=== PATIENT | male | born 1960 | race African-American/Black ===

== ENCOUNTER → 2019-11-09 11:32 | Outpatient (BNVA) | payer OTHER, SELFPAY | PROVIDERS: PCP Internal Medicine; Referring Provider Internal Medicine; Visit Provider Surgery | DX: Z76.89 Persons encountering health services in other specified circumstances (principal) ==

== ENCOUNTER → 2020-03-28 08:56 | Outpatient (BNVA) | payer OTHER, SELFPAY | PROVIDERS: PCP Internal Medicine; Visit Provider Hospitalist | DX: Z76.89 Persons encountering health services in other specified circumstances (principal) | CPT/HCPCS: Q3014 ==

== ENCOUNTER → 2020-04-11 08:01 | Outpatient (BNVA) | payer OTHER, SELFPAY | PROVIDERS: PCP Internal Medicine; Visit Provider Surgery | DX: Z01.818 Encounter for other preprocedural examination (principal); E66.01 Morbid (severe) obesity due to excess calories; R06.02 Shortness of breath; Z68.43 Body mass index [BMI] 50.0-59.9, adult; Z98.84 Bariatric surgery status | CPT/HCPCS: 99212 ==

== ENCOUNTER → 2020-09-30 09:20 | Outpatient (BNVA) | payer OTHER, SELFPAY | PROVIDERS: PCP Internal Medicine; Visit Provider Hospitalist | DX: G47.33 Obstructive sleep apnea (adult) (pediatric) (principal); J41.0 Simple chronic bronchitis; E66.9 Obesity, unspecified | CPT/HCPCS: 99212 ==

== ENCOUNTER → 2020-12-04 09:02 | Outpatient (BNVA) | payer OTHER, SELFPAY | PROVIDERS: PCP Internal Medicine; Visit Provider Hospitalist | DX: G47.33 Obstructive sleep apnea (adult) (pediatric) (principal); J41.0 Simple chronic bronchitis; E66.9 Obesity, unspecified; K21.9 Gastro-esophageal reflux disease without esophagitis | CPT/HCPCS: 99212 ==

== ENCOUNTER → 2021-06-13 08:34 | Outpatient (BNVA) | payer OTHER, SELFPAY | PROVIDERS: PCP Internal Medicine; Visit Provider Hospitalist | DX: G47.33 Obstructive sleep apnea (adult) (pediatric) (principal); J41.0 Simple chronic bronchitis; E66.9 Obesity, unspecified; K21.9 Gastro-esophageal reflux disease without esophagitis; Z68.43 Body mass index [BMI] 50.0-59.9, adult | CPT/HCPCS: 99212 ==

== ENCOUNTER → 2021-10-08 08:56 | Outpatient (REF) | payer OTHER, SELFPAY | LOC: HO.SL 08:56 | PROVIDERS: PCP Internal Medicine; Visit Provider Hospitalist | DX: G47.33 Obstructive sleep apnea (adult) (pediatric) (principal) | CPT/HCPCS: 95806 ==

== ENCOUNTER → 2021-10-22 10:22 | Outpatient (BNVA) | payer OTHER, SELFPAY | PROVIDERS: PCP Internal Medicine; Visit Provider Hospitalist | DX: G47.33 Obstructive sleep apnea (adult) (pediatric) (principal); J41.0 Simple chronic bronchitis; K21.9 Gastro-esophageal reflux disease without esophagitis; E66.9 Obesity, unspecified; Z68.43 Body mass index [BMI] 50.0-59.9, adult; Z79.899 Other long term (current) drug therapy | CPT/HCPCS: 99212 ==

== ENCOUNTER 2021-11-06 08:28 | Outpatient (REF) | payer OTHER, SELFPAY ==
--- NOTE | 2021-11-06 12:03 | PFT_ITS ---
FLOWS: FEV1 77% of predicted at 1.88 L. FVC 76% of predicted at 2.39 L. FEV1 to FVC ratio of 0.79. No bronchodilator response. LUNG VOLUMES: Total lung capacity 74% of predicted at 4.17 L. Residual volume 87% of predicted at 1.63 L. Slow vital capacity 57% of predicted at 2.54 L. Expiratory reserve volume 25% of predicted at 0.31 L. Diffusion capacity is normal. IMPRESSION: Moderate restrictive ventilatory defect with no bronchodilator response. Decreased expiratory reserve volume suggests extrathoracic restriction likely secondary to abdominal obesity. Yevgeniy Daugherty MD AP/MODL / [id number]
== END 2021-11-06 08:29 | disposition home or self-care (01) ==
LOC: HO.RESP 08:28
PROVIDERS: PCP Internal Medicine; Visit Provider Hospitalist
DX: J44.9 Chronic obstructive pulmonary disease, unspecified (principal)
CPT/HCPCS: 94060; 94727; 94729

== ENCOUNTER → 2022-02-17 10:06 | Outpatient (BNVA) | payer OTHER, SELFPAY | PROVIDERS: PCP Internal Medicine; Visit Provider Hospitalist | DX: Z01.811 Encounter for preprocedural respiratory examination (principal); J45.40 Moderate persistent asthma, uncomplicated; G47.33 Obstructive sleep apnea (adult) (pediatric); K21.9 Gastro-esophageal reflux disease without esophagitis | CPT/HCPCS: 99212 ==

== ENCOUNTER 2022-09-24 09:34 | Outpatient (AMB) | payer OTHER, SELFPAY ==
[2022-09-24 09:39] VITALS: PULSE 81; O2SAT 98; BMI 51.7
--- NOTE | 2022-09-24 09:39 | A.OFFVIS_ITS ---
Intake Vital Signs 09/24/22 09:39 Height 5 ft 8 in Weight 340 lb BMI 51.7 Pulse 81 Pulse Source Pulse Oximeter Pulse Oximetry (%) 98 Oxygen Delivery Method Room Air Intake Visit Reasons: Obstructive sleep apnea Collar Trimmer Required: No Allergies hydrocodone [From VICODIN] Allergy (Severe, Verified 09/24/22 09:41) ANGIOEDEMA metformin [METFORMIN] Allergy (Intermediate, Verified 09/24/22 09:41) ITCHING/HEADACHE, rash HPI HPI Comments History of Present Illness Details The patient is a 62-year-old gentleman known history of obstructive sleep apnea and obstructive airway disease. Still having issues shortness of breath. Moderate severity. He did have pulmonary function studies done recently at [facility] which we reviewed. It demonstrated that he does have a reversible obstruction consistent with significant asthma. The patient has significant small airways disease related to that. He also has restrictive lung disease related to his body habitus. He has issues with his knees in other arthritic he is and also morbid obesity and make it hard for him to exercise on a regular basis. He has been using CPAP. The CPAP therapy has been affecting beneficial. 02/17/2022 the patient is here for a pulmonary follow-up visit. The patient is doing extremely well. He is very happy about his new APAP. currently set 10- 13 with a ramp of 6. Sometimes he feels like the ramp is too low. I did increase it to 8. I also talked about a turned off. His AHI is down to 0.5 on the current settings. He does use it for about 8 hours a night. The therapy has been extremely affecting beneficial for him. He does use a fullface mask which is also very comfortable for him. The patient also has been able to lose about 40 lb. He is working closely with the dietitian in the weight management program at [facility]. The patient is hoping to undergo bariatric surgery in the coming weeks. Continues uses respiratory therapy. He has not had any exacerbations. And he is not using using short-acting beta agonist often. Typically less than twice a week. Otherwise the patient is doing very well from a respiratory status. current patient is doing well and may proceed with surgery and anesthesia at this time. 09/24/2022 the patient is here for a pulmonary follow-up visit. The patient is doing well. He did undergo bariatric surgery. He has already lost 50 lb. He has been careful with this weight loss. The patient has a hard time walking to this knee discomfort. Still he needs to continue exercising to maintain muscle tightness [place]. The patient has been using his CPAP. CPAP therapy continues to be affecting beneficial. He naps during the daytime and also sleeps at nighttime with it. His AHI is down to less than 1 which is reassuring. The machine is set up currently APAP 8-13. Will go ahead increase it slightly to 14 cm maximum. His respiratory therapy continues to be well. Currently on the Breztri inhaler twice a day. This has been affecting beneficial. He also uses albuterol but typically less than 2 times a week. No imaging studies to review. At this point the patient is doing well so therefore follow-up some point next year. [facility] Medical History (Updated 02/17/22 @ 20:11 by Chema Milton MD) Anxiety Arthritis Asthma COPD (chronic obstructive pulmonary disease) Depression GERD (gastroesophageal reflux disease) Glaucoma Gout Graves disease Hypothyroidism, postablative Obstructive sleep apnea Pre-op chest exam Super obesity Type 2 diabetes mellitus Surgical History (Updated 06/12/21 @ 13:55 by Janeth Kunz PA-C) History of Achilles tendon repair History of cardiac cath (~2015) History of eye surgery (~1997) History of laparoscopic adjustable gastric banding (~2006) History of removal of laparoscopic gastric banding device (~2019) History of umbilical hernia repair (~1997) Family History Father No problems noted. Mother COPD (chronic obstructive pulmonary disease) Asthma Brother No problems noted. Brother No problems noted. Sister No problems noted. Daughter No problems noted. Daughter No problems noted. Daughter No problems noted. Social History (Updated 09/30/20 @ 09:30 by KHLOE Avendano) Alcohol intake: former Patient Tobacco Use Status: Never used Tobacco Substance Use Type: Former Substance User Review of Systems Const Denies daytime sleepiness, Denies difficulty sleeping, Denies fatigue, Denies night sweats, Denies stops breathing during sleep and Reports weight loss Eyes Denies change in vision ENT Denies change in voice, Denies lip swelling, Denies mouth pain, Reports nasal congestion, Reports nasal discharge and Denies tongue swelling Card Denies chest pain and Reports dyspnea on exertion Resp Denies cough and Reports dyspnea on exertion GI Denies abdominal pain, Reports dyspepsia and Reports heartburn Musc Reports arthralgias Neuro Denies Neuro-related abnormal movements Psych Denies no additional complaints and Reports depression Endo Denies fatigue Antwon/Lymph Denies easy bleeding and Denies lymphadenopathy Aller/Immun Denies lip swelling and Denies tongue swelling Physical Exam Vital Signs: Last Vital Signs Pulse 81 09/24/22 09:39 Pulse Ox 98 09/24/22 09:39 Oxygen Delivery Method Room Air 09/24/22 09:39 BMI result Body Mass Index 51.7 Const General: alert Neck Neck: Yes normal visual inspection, Yes full ROM and Yes no lymphadenopathy Chest Chest palpation & inspection: normal inspection of the chest Resp Auscultation: diminished lung sounds Cardio Rate: regular rate Rhythm: regular rhythm Heart sounds: S1 normal heart sound present and S2 normal heart sound present GI Palpation (GI): Soft to palpation and nontender Auscultation: normal bowel sounds Skin General skin exam: rashes and/or lesions noted Extrem Right upper extremity: edema; no cyanosis Assessment & Plan Assessment & Plan (1) Obstructive sleep apnea: Code(s): G47.33 - Obstructive sleep apnea (adult) (pediatric) (2) GERD (gastroesophageal reflux disease): Code(s): K21.9 - Gastro-esophageal reflux disease without esophagitis (3) Asthma: Code(s): J45.909 - Unspecified asthma, uncomplicated Qualifiers: Asthma complication type: uncomplicated Asthma persistence: persistent Asthma severity: moderate Qualified Code(s): J45.40 - Moderate persistent asthma, uncomplicated Plan continue APAP 10-14, ramp 8, med F20 continue Breztri BID ARINA as needed Exercise routine as tolerated Reflux diet F/U 10 months Medications: New albuterol sulfate 90 mcg/actuation (Ventolin HFA) 2 puffs inhalation QID PRN 8.5 grams 11RF shortness of breath or wheezing Refilled ojwqyaajeg-vifqcxxr-dippcviucl 160-9-4.8 mcg/actuation (Breztri Aerosphere) 2 inhalations inhalation BID 30 days 10.7 grams 11RF Quality Reporting (2019) Adult ([facility] 138/04/01/68) Smoking risk assessment performed?: Yes Patient Tobacco Use Status: Never used Tobacco Coding Level of Care Code Est Pt Level 4 (74288) Diagnoses Obstructive sleep apnea G47.33 GERD (gastroesophageal reflux disease) K21.9 Asthma J45.40 Asthma complication type: uncomplicated Asthma persistence: persistent Asthma severity: moderate Time Spent (min) 17
== END 2022-09-24 10:00 | disposition home or self-care (01) ==
PROVIDERS: PCP Internal Medicine; Visit Provider Hospitalist
DX: G47.33 Obstructive sleep apnea (adult) (pediatric) (principal); K21.9 Gastro-esophageal reflux disease without esophagitis; J45.40 Moderate persistent asthma, uncomplicated
CPT/HCPCS: 99214

== ENCOUNTER → 2022-09-24 09:34 | Outpatient (BNVA) | payer OTHER, SELFPAY | PROVIDERS: Visit Provider Hospitalist | DX: G47.33 Obstructive sleep apnea (adult) (pediatric) (principal); J45.40 Moderate persistent asthma, uncomplicated; K21.9 Gastro-esophageal reflux disease without esophagitis | CPT/HCPCS: 99212 ==

== ENCOUNTER 2023-07-20 08:20 | Outpatient (AMB) | payer OTHER, SELFPAY ==
[2023-07-20 08:30] VITALS: PULSE 86; O2SAT 96; BMI 44.8
--- NOTE | 2023-07-20 08:30 | MHC.OFFVIS ---
Vital Signs 07/20/23 08:30 Height 5 ft 8 in Weight 295 lb BMI 44.8 Pulse 86 Pulse Source Pulse Oximeter Pulse Oximetry (%) 96 Oxygen Delivery Method Room Air Intake Visit Reasons: Obstructive sleep apnea Gift Manager Required: No Allergies hydrocodone [From VICODIN] Allergy (Severe, Verified 07/20/23 08:31) ANGIOEDEMA metformin [METFORMIN] Allergy (Intermediate, Verified 07/20/23 08:31) ITCHING/HEADACHE, rash HPI Comments Details: The patient is a 62-year-old gentleman known history of obstructive sleep apnea and obstructive airway disease. Still having issues shortness of breath. Moderate severity. He did have pulmonary function studies done recently at [facility] which we reviewed. It demonstrated that he does have a reversible obstruction consistent with significant asthma. The patient has significant small airways disease related to that. He also has restrictive lung disease related to his body habitus. He has issues with his knees in other arthritic he is and also morbid obesity and make it hard for him to exercise on a regular basis. He has been using CPAP. The CPAP therapy has been affecting beneficial. 02/17/2022 the patient is here for a pulmonary follow-up visit. The patient is doing extremely well. He is very happy about his new APAP. currently set 10-13 with a ramp of 6. Sometimes he feels like the ramp is too low. I did increase it to 8. I also talked about a turned off. His AHI is down to 0.5 on the current settings. He does use it for about 8 hours a night. The therapy has been extremely affecting beneficial for him. He does use a fullface mask which is also very comfortable for him. The patient also has been able to lose about 40 lb. He is working closely with the dietitian in the weight management program at [facility]. The patient is hoping to undergo bariatric surgery in the coming weeks. Continues uses respiratory therapy. He has not had any exacerbations. And he is not using using short-acting beta agonist often. Typically less than twice a week. Otherwise the patient is doing very well from a respiratory status. current patient is doing well and may proceed with surgery and anesthesia at this time. 09/24/2022 the patient is here for a pulmonary follow-up visit. The patient is doing well. He did undergo bariatric surgery. He has already lost 50 lb. He has been careful with this weight loss. The patient has a hard time walking to this knee discomfort. Still he needs to continue exercising to maintain muscle tightness [place]. The patient has been using his CPAP. CPAP therapy continues to be affecting beneficial. He naps during the daytime and also sleeps at nighttime with it. His AHI is down to less than 1 which is reassuring. The machine is set up currently APAP 8-13. Will go ahead increase it slightly to 14 cm maximum. His respiratory therapy continues to be well. Currently on the Breztri inhaler twice a day. This has been affecting beneficial. He also uses albuterol but typically less than 2 times a week. No imaging studies to review. At this point the patient is doing well so therefore follow-up some point next year. 07/20/2023 the patient is here for a pulmonary follow-up visit. The patient is doing very well. He is lost 90 lb after his bariatric surgery. He has been using the APAP. The APAP therapy has been affecting beneficial his AHI is 0.6. Will go ahead and decrease the pressures to 8-14 with a ramp of 7. Continues use a fullface mask. Asthma has been in good control. Continues on the breasts. Has not had any flare-ups has not required any prednisone. The patient is having issues with arthritis. Otherwise patient is doing well. Continue with current respiratory therapy and APAP therapy will follow-up in a year's time or sooner if he develops any issues. [facility] Medical History (Updated 07/20/23 @ 08:45 by Chema Milton MD) Pre-op chest exam Hypothyroidism, postablative Arthritis GERD (gastroesophageal reflux disease) Type 2 diabetes mellitus Glaucoma Asthma Anxiety Gout Depression Graves disease Super obesity Obstructive sleep apnea COPD (chronic obstructive pulmonary disease) Surgical History (Updated 06/12/21 @ 13:55 by Janeth Kunz PA-C) History of cardiac cath (~2015) History of eye surgery (~1997) History of umbilical hernia repair (~1997) History of laparoscopic adjustable gastric banding (~2006) History of Achilles tendon repair History of removal of laparoscopic gastric banding device (~2019) Family History Father No problems noted. Mother COPD (chronic obstructive pulmonary disease) Asthma Brother No problems noted. Brother No problems noted. Sister No problems noted. Daughter No problems noted. Daughter No problems noted. Daughter No problems noted. Social History (Updated 09/30/20 @ 09:30 by KHLOE Avendano) Alcohol intake: former Patient Tobacco Use Status: Never used Tobacco Substance Use Type: Former Substance User Review of Systems Const Denies daytime sleepiness, Denies difficulty sleeping, Denies fatigue, Denies night sweats, Denies stops breathing during sleep and Reports weight loss Eyes Denies change in vision ENT Denies change in voice, Denies lip swelling, Denies mouth pain, Reports nasal congestion, Reports nasal discharge and Denies tongue swelling Card Denies chest pain and Reports dyspnea on exertion Resp Denies cough and Reports dyspnea on exertion GI Denies abdominal pain, Reports dyspepsia and Reports heartburn Musc Reports arthralgias Neuro Denies Neuro-related abnormal movements Psych Denies no additional complaints and Reports depression Endo Denies fatigue Antwon/Lymph Denies easy bleeding and Denies lymphadenopathy Aller/Immun Denies lip swelling and Denies tongue swelling Physical Exam Vital Signs: Last Vital Signs Pulse 86 07/20/23 08:30 Pulse Ox 96 07/20/23 08:30 Oxygen Delivery Method Room Air 07/20/23 08:30 BMI result Body Mass Index 44.8 Const General: alert Neck Neck: Yes normal visual inspection, Yes full ROM and Yes no lymphadenopathy Chest Chest palpation & inspection: normal inspection of the chest Resp Effort & Inspection: normal respiratory effort Auscultation: diminished lung sounds Cardio Rate: regular rate Rhythm: regular rhythm Heart sounds: S1 normal heart sound present and S2 normal heart sound present GI Palpation (GI): Soft to palpation and nontender Auscultation: normal bowel sounds Skin General skin exam: rashes and/or lesions noted Extrem Right upper extremity: edema; no cyanosis Quality Reporting (2020) Adult ([facility] 138/04/01/68) Smoking risk assessment performed?: Yes Patient Tobacco Use Status: Never used Tobacco Assessment & Plan Assessment & Plan (1) Obstructive sleep apnea: Code(s): G47.33 - Obstructive sleep apnea (adult) (pediatric) Category: Medical (2) GERD (gastroesophageal reflux disease): Code(s): K21.9 - Gastro-esophageal reflux disease without esophagitis Category: Medical Qualifiers: Esophagitis presence: without esophagitis Qualified Code(s): K21.9 - Gastro-esophageal reflux disease without esophagitis (3) Asthma: Code(s): J45.909 - Unspecified asthma, uncomplicated Category: Medical Qualifiers: Asthma complication type: uncomplicated Asthma persistence: persistent Asthma severity: moderate Qualified Code(s): J45.40 - Moderate persistent asthma, uncomplicated Plan adjusted APAP 8-14, ramp 7, med F20 continue Breztri BID ARINA as needed Exercise routine as tolerated Reflux diet F/U 10-12 months Coding Level of Care Code Est Pt Level 4 (32342) Diagnoses Obstructive sleep apnea G47.33 Gastroesophageal reflux disease without esophagitis K21.9 Esophagitis presence: without esophagitis Moderate persistent asthma without complication J45.40 Asthma complication type: uncomplicated Asthma persistence: persistent Asthma severity: moderate Time Spent (min) 16
== END 2023-07-20 08:45 | disposition home or self-care (01) ==
PROVIDERS: PCP Internal Medicine; Visit Provider Hospitalist
DX: G47.33 Obstructive sleep apnea (adult) (pediatric) (principal); K21.9 Gastro-esophageal reflux disease without esophagitis; J45.40 Moderate persistent asthma, uncomplicated
CPT/HCPCS: 99214

== ENCOUNTER → 2023-07-20 08:20 | Outpatient (BNVA) | payer OTHER, SELFPAY | PROVIDERS: PCP Internal Medicine; Visit Provider Hospitalist | DX: G47.33 Obstructive sleep apnea (adult) (pediatric) (principal); J45.40 Moderate persistent asthma, uncomplicated; K21.9 Gastro-esophageal reflux disease without esophagitis | CPT/HCPCS: 99212 ==

== ENCOUNTER 2023-08-06 08:06 | Outpatient (AMB) | payer OTHER, SELFPAY ==
--- NOTE | 2023-08-06 08:27 | A.OFFVIS_ITS ---
Vital Signs 08/06/23 08:29 Height 5 ft 8 in Weight 300 lb BMI 45.6 BP 142/70 H Blood Pressure Location Lt brachial Position Sitting Respiration 14 Pulse 78 Pulse Source Pulse Oximeter Pulse Oximetry (%) 97 Oxygen Delivery Method Room Air Intake Visit Reasons: back pain Allergies hydrocodone [From VICODIN] Allergy (Severe, Verified 08/06/23 08:31) ANGIOEDEMA metformin [METFORMIN] Allergy (Intermediate, Verified 08/06/23 08:31) ITCHING/HEADACHE, rash Medication List - Last Reconciled 08/06/23 by Idalmis Negron LPN albuterol sulfate 2.5 mg (3 mL) inhalation Q8H PRN albuterol sulfate 90 mcg/actuation (Ventolin HFA) 2 puffs inhalation QID PRN allopurinol 300 mg PO DAILY amlodipine 5 mg PO DAILY aspirin 325 mg PO DAILY rqnjhjzfpx-hodonygv-nkmpifiysf 160-9-4.8 mcg/actuation (Breztri Aerosphere) 2 inhalations inhalation BID 30 days cholecalciferol (vitamin D3) 50 mcg PO DAILY CPAP (CPAP Machine/Device) As directed diclofenac sodium 1% 2 grams topical QID empagliflozin (Jardiance) 10 mg PO QAM furosemide 40 mg PO DAILY humidifiers As directed isosorbide mononitrate ER 30 mg PO DAILY levothyroxine 200 mcg PO DAILY lidocaine 4% (Salonpas (lidocaine)) 1 patch topical DAILY PRN loratadine 10 mg PO DAILY losartan 100 mg PO DAILY metoprolol succinate ER 100 mg PO DAILY multivit-min #56-FA-vit K-Q10 200 mcg-1,000 mcg-10 mg (DEKAs Plus (folic acid)) 1 tab PO DAILY nitroglycerin 0 mg sublingual oxygen-air delivery systems As directed potassium chloride ER 40 mEq PO BID sitagliptin phosphate (Januvia) 100 mg PO DAILY vilazodone (Viibryd) 10 mg PO DAILY HPI HPI back pain: Details: 63-year-old male who presents today to the office for an evaluation of back pain. The patient has a 10-year history of severe low back pain. Pain is described as an aching, stabbing sensation in the lower back. He has bursitis in the hips. The pain is 9/10 in intensity. He is unable to sleep normally or do his daily activities and is on permanent disability. Weather changes and movements make it worse. Pain tends to be worse during the morning hours and reduce down to about 7/10 during the evening hours. He has been doing massages in [place]. He had facet cortisone injections at [facility] in the past that provided 70% relief for more than two months at a time. He follows up every four months for injections, and the last was done about a year ago. His insurance did not cover the cost of the injection, and he has to pay from his pocket. He has not done an MRI scan of his back. Past history is notable for a sleeve gastrectomy in 2022; since then, he has lost about 100 pounds and raised about 300 pounds at this time. Unfortunately, he was discharged from that practice because of concern for his weight. He is looking for a new pain management provider. [facility] Medical History (Updated 08/09/23 @ 08:53 by Yony Mena MD) Pre-op chest exam Hypothyroidism, postablative Arthritis GERD (gastroesophageal reflux disease) Type 2 diabetes mellitus Glaucoma Asthma Anxiety Gout Depression Graves disease Super obesity Obstructive sleep apnea COPD (chronic obstructive pulmonary disease) Surgical History (Updated 06/12/21 @ 13:55 by Janeth Kunz PA-C) History of cardiac cath (~2015) History of eye surgery (~1997) History of umbilical hernia repair (~1997) History of laparoscopic adjustable gastric banding (~2006) History of Achilles tendon repair History of removal of laparoscopic gastric banding device (~2019) Family History Father No problems noted. Mother COPD (chronic obstructive pulmonary disease) Asthma Brother No problems noted. Brother No problems noted. Sister No problems noted. Daughter No problems noted. Daughter No problems noted. Daughter No problems noted. Social History (Updated 09/30/20 @ 09:30 by KHLOE Avendano) Alcohol intake: former Patient Tobacco Use Status: Never used Tobacco Substance Use Type: Former Substance User Review of Systems Const All systems reviewed & are unremarkable except as noted in HPI and below Physical Exam Vital Signs: Last Vital Signs Pulse 78 08/06/23 08:29 Resp 14 08/06/23 08:29 BP 142/70 H 08/06/23 08:29 Pulse Ox 97 08/06/23 08:29 Oxygen Delivery Method Room Air 08/06/23 08:29 BMI result Body Mass Index 45.6 General: Appears afebrile. Alert and oriented. Mood and affect appropriate. Follows and participates in conversation appropriately. Respiratory effort is unlabored. Able to transition from sit to stand unassisted. Ambulates with bilaterally normal heel strike and toe off. Lumbar extension reproduces pain Quality Reporting (2019) Adult ([facility] 138/2//69) Smoking risk assessment performed?: Yes Patient Tobacco Use Status: Never used Tobacco Results Reviewed Results Reviewed: No imaging is available for review. Assessment & Plan Assessment & Plan (1) Lumbar spondylosis: Code(s): M47.816 - Spondylosis without myelopathy or radiculopathy, lumbar region Category: Medical Plan Discussed temporary nerve stimulator vs. facet injections as a possible treatment option. We will request authorization for repeating bilateral L4-5 facet injections with corticosteroid since these have been helpful for him in the past. He reported more than 75% relief for 3 months with these injections. Discussed the risks and benefits of the procedure with the patient in detail. All questions were answered. The patient is on board with the plan. I also discussed the temporary peripheral nerve stimulation as a potential treatment option that we can try in the future if he feels that the cortisone is keeping him from losing the weight that he needs to lose as part of his weight management program. Justification for interventional therapy: ? Patient with average pain > 6/10 ? Patient has exhausted conservative therapy ? Patient unable to tolerate physical therapy due to pain. . Patient has a good understanding of their pain condition and has appropriate mental and social support Scribed for Dr. Mena by Jos Douglas, medical research tech, on 08/06/2023. I, Dr. Mena, have personally reviewed and agree with the information entered by the [facility]. Coding Level of Care Code New Pt Level 4 (95981) Diagnoses Lumbar spondylosis M47.816
[2023-08-06 08:29] VITALS: BP 142/70; PULSE 78; RESP 14; O2SAT 97; BMI 45.6
== END 2023-08-06 08:56 | disposition home or self-care (01) ==
PROVIDERS: PCP Internal Medicine; Visit Provider Internal Medicine
DX: M47.816 Spondylosis without myelopathy or radiculopathy, lumbar region (principal)
CPT/HCPCS: 99204

== ENCOUNTER → 2023-08-06 08:06 | Outpatient (BNVA) | payer OTHER, SELFPAY | PROVIDERS: PCP Internal Medicine; Visit Provider Internal Medicine | DX: M47.816 Spondylosis without myelopathy or radiculopathy, lumbar region (principal) | CPT/HCPCS: 99202 ==

== ENCOUNTER 2023-08-26 06:09 | Outpatient (REF) | payer OTHER, SELFPAY ==
--- NOTE | ~2023-08-26 | FL_ITS ---
EXAMINATION: XR FLUOROSCOPY WITH IMAGES CLINICAL INFORMATION: Lumbar spondylosis. COMPARISON: None available. TECHNIQUE: Fluoroscopy Supervised By: Dr. Mena. Fluoroscopy Time: 0.2 min. Cumulative Dose: 8.83 mGy. DAP: 0.0963 Gycm2. Images: 4. FINDINGS: Intraoperative fluoroscopy and spot films were performed during a procedure in the OR. Epidural transforaminal needles are present at what appears to be L4, L5 and S1 bilaterally. Precise levels can not be ascertained secondary to marked coning of the images with lack of appropriate landmarks and it is possible that levels could be L3, L4 and L5. Please correlate with Dr. Mena's report for complete details and laterality. FL/FL guidance in treatment room IMPRESSION: Intraoperative fluoroscopy and spot films were obtained. Please see Dr. Mena's report for complete details.
== END 2023-08-26 06:10 | disposition home or self-care (01) ==
LOC: CF 06:09
PROVIDERS: Visit Provider Internal Medicine
DX: M47.816 Spondylosis without myelopathy or radiculopathy, lumbar region (principal)
CPT/HCPCS: 64493; 64494; J2795; J3301; Q9967

== ENCOUNTER 2023-08-26 07:21 | Outpatient (AMB) | payer OTHER, SELFPAY ==
--- NOTE | 2023-08-26 07:22 | MHC.OFFVIS ---
Vital Signs 08/26/23 07:29 08/26/23 08:26 Height 5 ft 8 in Weight 303 lb BMI 46.1 BP 144/80 H 147/83 H Blood Pressure Location Rt brachial Rt brachial Position Sitting Sitting Respiration 16 16 Pulse 68 68 Pulse Source Pulse Oximeter Pulse Oximeter Pulse Oximetry (%) 98 98 Oxygen Delivery Method Room Air Room Air Comment Pre-Op Post-Op Intake Visit Reasons: Luis theraputic L4-L5 facet inj Transfer Specialist Required: No Accompanied by: Spouse Allergies hydrocodone [From VICODIN] Allergy (Severe, Verified 08/26/23 07:30) ANGIOEDEMA metformin [METFORMIN] Allergy (Intermediate, Verified 08/26/23 07:30) ITCHING/HEADACHE, rash HPI HPI Luis theraputic L4-L5 facet inj: Details: Patient presents for scheduled procedure. Denies any recent cough, cold, infection, fever or other significant changes in medical history since last office visit. COUNTS INCLUDE 234 BEDS AT THE [facility] Medical History (Updated 08/09/23 @ 08:53 by Yony Mena MD) Pre-op chest exam Hypothyroidism, postablative Arthritis GERD (gastroesophageal reflux disease) Type 2 diabetes mellitus Glaucoma Asthma Anxiety Gout Depression Graves disease Super obesity Obstructive sleep apnea COPD (chronic obstructive pulmonary disease) Surgical History (Updated 06/12/21 @ 13:55 by Janeth Kunz PA-C) History of cardiac cath (~2015) History of eye surgery (~1997) History of umbilical hernia repair (~1997) History of laparoscopic adjustable gastric banding (~2006) History of Achilles tendon repair History of removal of laparoscopic gastric banding device (~2019) Family History Father No problems noted. Mother COPD (chronic obstructive pulmonary disease) Asthma Brother No problems noted. Brother No problems noted. Sister No problems noted. Daughter No problems noted. Daughter No problems noted. Daughter No problems noted. Social History (Updated 09/30/20 @ 09:30 by KHLOE Avendano) Alcohol intake: former Patient Tobacco Use Status: Never used Tobacco Substance Use Type: Former Substance User Physical Exam Vital Signs: Last Vital Signs Pulse 68 08/26/23 07:29 Resp 16 08/26/23 07:29 BP 144/80 H 08/26/23 07:29 Pulse Ox 98 08/26/23 07:29 Oxygen Delivery Method Room Air 08/26/23 07:29 BMI result Body Mass Index 46.1 Office Procedures Lumbar/Sacral Facet Inj Details: Lumbar Facet Injections, Bilateral, L3/L4, L4/L5, L5/S1 After obtaining written consent, pre-procedure blood pressure and pulse were recorded and are in the nursing record for review. The patient was placed in a prone position. The respective lumbosacral area was prepped with chloraprep and draped in sterile fashion. The target facet joints were visualized using ipsilateral oblique fluoroscopy to reveal the joint line. The skin over the target facet joints was anesthetized with 0.5% lidocaine. A 22 gauge 5 inch needle with a small bend on the tip was advanced towards the target facet joint under fluoroscopic guidance until bony contact. The needle was then maneuvered and rotated until it slid into the joint slightly. No paresthesias were elicited with needle placement and aspiration was negative for blood and CSF. Next, 13mg of methylprednisone mixed with 0.5 ml 0.5% ropivicaine was injected (0.5cc total per level). The identical procedure was performed at the remaining levels. The skin was cleansed and a sterile bandage was applied. Following the procedure the patient's vital signs were stable. The patient tolerated the procedure well and no complications were encountered. Following the procedure the patient's vital signs were stable. The patient was discharged home in good condition with post-procedural instructions. Time Out: Immediately prior to the procedure, the following was verbally confirmed that there is a signed consent form and that the correct patient, planned procedure, site and side are consistent with documentation and that necessary equipment and/or blood products are available prior to the start of the case. Complications: none EBL: <5 cc 58093 - with Fluoroscopy 08613 - second level, with Fluoroscopy (bilateral) Procedure code (CPT) selection complete Quality Reporting (2019) Adult ([facility] ) Smoking risk assessment performed?: Yes Patient Tobacco Use Status: Never used Tobacco Assessment & Plan Assessment & Plan (1) Lumbar spondylosis: Code(s): M47.816 - Spondylosis without myelopathy or radiculopathy, lumbar region Category: Medical Plan Patient is status post bilateral lower lumbar facet injections. Patient tolerated procedure well and was discharged home in stable condition with discharge instructions. All questions were answered. We will follow-up via telephone or in clinic to assess response to therapy. A follow-up appointment was made during today's visit. Orders: Orders FL guidance in treatment room Today M47.816 - Spondylosis without myelopathy or radiculopathy, lumbar region Coding Level of Care Code Procedure Only Diagnoses Lumbar spondylosis M47.816 CPT Codes Facet Injection-Lumbar/Sacral - CPT: 28122 - with Fluoroscopy ([id number]) Facet Injection-Lumbar/Sacral - CPT: 09112 - second level, with Fluoroscopy ([id number])
[2023-08-26 07:29] VITALS: BP 144/80; PULSE 68; RESP 16; O2SAT 98; BMI 46.1
[2023-08-26 08:26] VITALS: BP 147/83; PULSE 68; RESP 16; O2SAT 98
== END 2023-08-26 08:34 | disposition home or self-care (01) ==
LOC: HO.PMCPRC 07:21
PROVIDERS: PCP Internal Medicine; Visit Provider Internal Medicine
DX: M47.816 Spondylosis without myelopathy or radiculopathy, lumbar region (principal)
CPT/HCPCS: 64493; 64494

== ENCOUNTER 2023-09-27 08:26 | Outpatient (AMB) | payer OTHER, SELFPAY ==
--- NOTE | 2023-09-27 08:32 | A.OFFVIS_ITS ---
Vital Signs 09/27/23 08:33 Height 5 ft 8 in Weight 303 lb BMI 46.1 BP 110/72 Blood Pressure Location Lt brachial Position Sitting Respiration 14 Pulse 82 Pulse Source Pulse Oximeter Pulse Oximetry (%) 96 Oxygen Delivery Method Room Air Intake Visit Reasons: s/p paolo theraputic L4-L5 facet inj Allergies hydrocodone [From VICODIN] Allergy (Severe, Verified 09/27/23 08:37) ANGIOEDEMA metformin [METFORMIN] Allergy (Intermediate, Verified 09/27/23 08:37) ITCHING/HEADACHE, rash Medication List - Last Reconciled 09/27/23 by Idalmis Negron LPN albuterol sulfate 2.5 mg (3 mL) inhalation Q8H PRN albuterol sulfate 90 mcg/actuation (Ventolin HFA) 2 puffs inhalation QID PRN allopurinol 300 mg PO DAILY amlodipine 5 mg PO DAILY aspirin 325 mg PO DAILY ospokvaxfu-awosbpjy-yhofzpywxi 160-9-4.8 mcg/actuation (Breztri Aerosphere) 2 inhalations inhalation BID 30 days cholecalciferol (vitamin D3) 50 mcg PO DAILY CPAP (CPAP Machine/Device) As directed diclofenac sodium 1% 2 grams topical QID empagliflozin (Jardiance) 10 mg PO QAM furosemide 40 mg PO DAILY humidifiers As directed isosorbide mononitrate ER 30 mg PO DAILY levothyroxine 200 mcg PO DAILY loratadine 10 mg PO DAILY losartan 100 mg PO DAILY metoprolol succinate ER 100 mg PO DAILY multivit-min #56-FA-vit K-Q10 200 mcg-1,000 mcg-10 mg (DEKAs Plus (folic acid)) 1 tab PO DAILY nitroglycerin 0 mg sublingual oxygen-air delivery systems As directed pantoprazole 40 mg PO DAILY potassium chloride ER 40 mEq PO BID rosuvastatin 10 mg PO BEDTIME sitagliptin phosphate (Januvia) 100 mg PO DAILY vilazodone (Viibryd) 10 mg PO DAILY HPI HPI s/p paolo theraputic L4-L5 facet inj: Details: 63-year-old male who presents today to the office for a status post bilateral therapeutic L4-L5 facet injection. The patient reports 80% relief following the procedure. He has significant relief from the procedure and is able to do his activities without pain. He has been using an old mattress at home, which affects his pain. He has been using special pillows at home.? Past procedures 08/26/23: Lumbar Facet Injections, Bilateral, L3/L4, L4/L5, L5/S1: 80% relief. [facility] Medical History (Updated 08/09/23 @ 08:53 by Yony Mena MD) Pre-op chest exam Hypothyroidism, postablative Arthritis GERD (gastroesophageal reflux disease) Type 2 diabetes mellitus Glaucoma Asthma Anxiety Gout Depression Graves disease Super obesity Obstructive sleep apnea COPD (chronic obstructive pulmonary disease) Surgical History (Updated 06/12/21 @ 13:55 by Janeth Kunz PA-C) History of cardiac cath (~2015) History of eye surgery (~1997) History of umbilical hernia repair (~1997) History of laparoscopic adjustable gastric banding (~2006) History of Achilles tendon repair History of removal of laparoscopic gastric banding device (~2019) Family History Father No problems noted. Mother COPD (chronic obstructive pulmonary disease) Asthma Brother No problems noted. Brother No problems noted. Sister No problems noted. Daughter No problems noted. Daughter No problems noted. Daughter No problems noted. Social History (Updated 09/30/20 @ 09:30 by KHLOE Avendano) Alcohol intake: former Patient Tobacco Use Status: Never used Tobacco Substance Use Type: Former Substance User Review of Systems Const All systems reviewed & are unremarkable except as noted in HPI and below Physical Exam Vital Signs: Last Vital Signs Pulse 82 09/27/23 08:33 Resp 14 09/27/23 08:33 BP 110/72 09/27/23 08:33 Pulse Ox 96 09/27/23 08:33 Oxygen Delivery Method Room Air 09/27/23 08:33 BMI result Body Mass Index 46.1 General: Appears afebrile. Alert and oriented. Mood and affect appropriate. Follows and participates in conversation appropriately. Respiratory effort is unlabored. Able to transition from sit to stand unassisted. Ambulates with bilaterally normal heel strike and toe off. Quality Reporting (2019) Adult ([facility] 138/2/) Smoking risk assessment performed?: Yes Patient Tobacco Use Status: Never used Tobacco Results Reviewed Results Reviewed: No imaging is available for review. Assessment & Plan Assessment & Plan (1) Lumbar spondylosis: Code(s): M47.816 - Spondylosis without myelopathy or radiculopathy, lumbar region Category: Medical Plan The patient continues to have 80% relief from the last procedure. I recommended using good mattresses and pillows at home. We can repeat the injection quarterly for pain relief. Follow up as needed. ? Scribed for Dr. Mena by Jos Douglas, diploma medical assistant, on 09/27/2023. I, Dr. Mena, have personally reviewed and agree with [facility] Coding Level of Care Code Est Pt Level 3 (42970) Diagnoses Lumbar spondylosis M47.816
[2023-09-27 08:33] VITALS: BP 110/72; PULSE 82; RESP 14; O2SAT 96; BMI 46.1
== END 2023-09-27 08:53 | disposition home or self-care (01) ==
LOC: HO.PMC 08:26
PROVIDERS: PCP Internal Medicine; Visit Provider Internal Medicine
DX: M47.816 Spondylosis without myelopathy or radiculopathy, lumbar region (principal)
CPT/HCPCS: 99213

== ENCOUNTER → 2023-09-27 08:26 | Outpatient (BNVA) | payer OTHER, SELFPAY | PROVIDERS: PCP Internal Medicine; Visit Provider Internal Medicine | DX: M47.816 Spondylosis without myelopathy or radiculopathy, lumbar region (principal) | CPT/HCPCS: 99212 ==

== ENCOUNTER 2023-12-09 06:16 | Outpatient (REF) | payer OTHER, SELFPAY | END 2023-12-09 06:17 | disposition home or self-care (01) | LOC: CF 06:16 | PROVIDERS: Visit Provider Internal Medicine | DX: M47.816 Spondylosis without myelopathy or radiculopathy, lumbar region (principal) | CPT/HCPCS: 64493; 64494; J1010; J2003; J2795; Q9967 ==

== ENCOUNTER 2023-12-09 10:38 | Outpatient (AMB) | payer OTHER, SELFPAY ==
--- NOTE | 2023-12-09 10:41 | A.OFFVIS_ITS ---
Vital Signs 12/09/23 10:53 12/09/23 11:41 BP 145/83 H 149/71 H Blood Pressure Location Lt brachial Lt brachial Position Sitting Sitting Pulse 73 75 Pulse Source Pulse Oximeter Pulse Oximeter Pulse Oximetry (%) 99 97 Oxygen Delivery Method Room Air Room Air Intake Visit Reasons: Luis theraputic L4-L5 facet inj Allergies hydrocodone [From VICODIN] Allergy (Severe, Verified 09/27/23 08:37) ANGIOEDEMA metformin [METFORMIN] Allergy (Intermediate, Verified 09/27/23 08:37) ITCHING/HEADACHE, rash HPI HPI Luis theraputic L4-L5 facet inj: Details: Patient presents for scheduled procedure. Denies any recent cough, cold, infection, fever or other significant changes in medical history since last office visit. [facility] Medical History (Updated 08/09/23 @ 08:53 by Yony Mena MD) Pre-op chest exam Hypothyroidism, postablative Arthritis GERD (gastroesophageal reflux disease) Type 2 diabetes mellitus Glaucoma Asthma Anxiety Gout Depression Graves disease Super obesity Obstructive sleep apnea COPD (chronic obstructive pulmonary disease) Surgical History (Updated 06/12/21 @ 13:55 by Janeth Kunz PA-C) History of cardiac cath (~2015) History of eye surgery (~1997) History of umbilical hernia repair (~1997) History of laparoscopic adjustable gastric banding (~2006) History of Achilles tendon repair History of removal of laparoscopic gastric banding device (~2019) Family History Father No problems noted. Mother COPD (chronic obstructive pulmonary disease) Asthma Brother No problems noted. Brother No problems noted. Sister No problems noted. Daughter No problems noted. Daughter No problems noted. Daughter No problems noted. Social History (Updated 09/30/20 @ 09:30 by KHLOE Avendano) Alcohol intake: former Patient Tobacco Use Status: Never used Tobacco Substance Use Type: Former Substance User Physical Exam Vital Signs: Last Vital Signs Pulse 73 12/09/23 10:53 BP 145/83 H 12/09/23 10:53 Pulse Ox 99 12/09/23 10:53 Oxygen Delivery Method Room Air 12/09/23 10:53 Office Procedures Lumbar/Sacral Facet Inj Details: Lumbar Facet Injections, Bilateral, L3/L4, L4/L5, L5/S1 After obtaining written consent, pre-procedure blood pressure and pulse were recorded and are in the nursing record for review. The patient was placed in a prone position. The respective lumbosacral area was prepped with chloraprep and draped in sterile fashion. The target facet joints were visualized using ipsilateral oblique fluoroscopy to reveal the joint line. The skin over the target facet joints was anesthetized with 0.5% lidocaine. A 22 gauge 5 inch needle with a small bend on the tip was advanced towards the target facet joint under fluoroscopic guidance until bony contact. The needle was then maneuvered and rotated until it slid into the joint slightly. No paresthesias were elicited with needle placement and aspiration was negative for blood and CSF. Next, 13mg of methylprednisone mixed with 0.5 ml 0.5% ropivicaine was injected (0.5cc total per level). The identical procedure was performed at the remaining levels. The skin was cleansed and a sterile bandage was applied. Following the procedure the patient's vital signs were stable. The patient tolerated the procedure well and no complications were encountered. Following the procedure the patient's vital signs were stable. The patient was discharged home in good condition with post-procedural instructions. Time Out: Immediately prior to the procedure, the following was verbally confirmed that there is a signed consent form and that the correct patient, planned procedure, site and side are consistent with documentation and that necessary equipment and/or blood products are available prior to the start of the case. Complications: none EBL: <5 cc 17167 - with Fluoroscopy 01937 - second level, with Fluoroscopy (Bilateral) Procedure code (CPT) selection complete Quality Reporting (2019) Adult ([facility] ) Smoking risk assessment performed?: Yes Patient Tobacco Use Status: Never used Tobacco Assessment & Plan Assessment & Plan (1) Lumbar spondylosis: Code(s): M47.816 - Spondylosis without myelopathy or radiculopathy, lumbar region Category: Medical Plan Patient is status post procedure. Patient tolerated procedure well and was discharged home in stable condition with discharge instructions. All questions were answered. We will follow-up via telephone or in clinic to assess response to therapy. A follow-up appointment was made during today's visit. Orders: Orders FL guidance in treatment room Today M47.816 - Spondylosis without myelopathy or radiculopathy, lumbar region Coding Level of Care Code Procedure Only Diagnoses Lumbar spondylosis M47.816 CPT Codes Facet Injection-Lumbar/Sacral - CPT: 38967 - with Fluoroscopy ([id number]) Facet Injection-Lumbar/Sacral - CPT: 32225 - second level, with Fluoroscopy ([id number])
[2023-12-09 10:53] VITALS: BP 145/83; PULSE 73; O2SAT 99
[2023-12-09 11:41] VITALS: BP 149/71; PULSE 75; O2SAT 97
== END 2023-12-09 11:42 | disposition home or self-care (01) ==
LOC: HO.PMCPRC 10:38
PROVIDERS: PCP Internal Medicine; Visit Provider Internal Medicine
DX: M47.816 Spondylosis without myelopathy or radiculopathy, lumbar region (principal)
CPT/HCPCS: 64493; 64494

== ENCOUNTER 2024-01-12 09:33 | Outpatient (AMB) | payer OTHER, SELFPAY ==
[2024-01-12 09:43] VITALS: BP 124/68; PULSE 68; RESP 16; O2SAT 96; BMI 45.6
--- NOTE | 2024-01-12 09:43 | A.OFFVIS_ITS ---
Vital Signs 01/12/24 09:43 Height 5 ft 8 in Weight 300 lb BMI 45.6 BP 124/68 Blood Pressure Location Lt brachial Position Sitting Respiration 16 Pulse 68 Pulse Source Pulse Oximeter Pulse Oximetry (%) 96 Oxygen Delivery Method Room Air Intake Visit Reasons: s/p paolo L4-L5 facet inj Allergies hydrocodone [From VICODIN] Allergy (Severe, Verified 01/12/24 09:45) ANGIOEDEMA metformin [METFORMIN] Allergy (Intermediate, Verified 01/12/24 09:45) ITCHING/HEADACHE, rash Medication List - Last Reconciled 01/12/24 by Idalmis Nergon LPN albuterol sulfate 2.5 mg (3 mL) inhalation Q8H PRN albuterol sulfate 90 mcg/actuation (Ventolin HFA) 2 puffs inhalation QID PRN allopurinol 300 mg PO DAILY amlodipine 5 mg PO DAILY aspirin 325 mg PO DAILY xpagqheprn-ctccempg-rdvhhzrucd 160-9-4.8 mcg/actuation (Breztri Aerosphere) 2 inhalations inhalation BID 30 days cholecalciferol (vitamin D3) 50 mcg PO DAILY CPAP (CPAP Machine/Device) As directed diclofenac sodium 1% 2 grams topical QID empagliflozin (Jardiance) 10 mg PO QAM furosemide 40 mg PO DAILY humidifiers As directed isosorbide mononitrate ER 30 mg PO DAILY levothyroxine 200 mcg PO DAILY loratadine 10 mg PO DAILY losartan 100 mg PO DAILY metoprolol succinate ER 100 mg PO DAILY multivit-min #56-FA-vit K-Q10 200 mcg-1,000 mcg-10 mg (DEKAs Plus (folic acid)) 1 tab PO DAILY nitroglycerin 0 mg sublingual oxygen-air delivery systems As directed pantoprazole 40 mg PO DAILY potassium chloride ER 40 mEq PO BID rosuvastatin 10 mg PO BEDTIME sitagliptin phosphate (Januvia) 100 mg PO DAILY vilazodone (Viibryd) 10 mg PO DAILY HPI HPI s/p paolo L4-L5 facet inj: Details: 63-year-old male who presents to the office today for a status post bilateral therapeutic L4-L5 facet injection. The patient reports 80% relief following the procedure. He reports significant improvement in his symptoms. He states he has been receiving cortisone injections to his knees for the past 2 years. He had good pain relief for 3 months following the injection. He had an appt with his provider on 01/31/24, but his appt has been canceled. He is requesting to have injections here and he is amenable to try gel injections. Past procedures 12/09/23: Lumbar Facet Injections, Bilateral, L3/L4, L4/L5, L5/S1: 80% relief. 08/26/23: Lumbar Facet Injections, Bilateral, L3/L4, L4/L5, L5/S1: 80% relief. [facility] Medical History (Updated 01/12/24 @ 12:39 by Yony Mena MD) Pre-op chest exam Hypothyroidism, postablative Arthritis GERD (gastroesophageal reflux disease) Type 2 diabetes mellitus Glaucoma Asthma Anxiety Gout Depression Graves disease Super obesity Obstructive sleep apnea COPD (chronic obstructive pulmonary disease) Surgical History (Updated 06/12/21 @ 13:55 by Janeth Kunz PA-C) History of cardiac cath (~2015) History of eye surgery (~1997) History of umbilical hernia repair (~1997) History of laparoscopic adjustable gastric banding (~2006) History of Achilles tendon repair History of removal of laparoscopic gastric banding device (~2019) Family History Father No problems noted. Mother COPD (chronic obstructive pulmonary disease) Asthma Brother No problems noted. Brother No problems noted. Sister No problems noted. Daughter No problems noted. Daughter No problems noted. Daughter No problems noted. Social History (Updated 09/30/20 @ 09:30 by KHLOE Avendano) Alcohol intake: former Patient Tobacco Use Status: Never used Tobacco Substance Use Type: Former Substance User Review of Systems Const All systems reviewed & are unremarkable except as noted in HPI and below Physical Exam Vital Signs: Last Vital Signs Pulse 68 01/12/24 09:43 Resp 16 01/12/24 09:43 BP 124/68 01/12/24 09:43 Pulse Ox 96 01/12/24 09:43 Oxygen Delivery Method Room Air 01/12/24 09:43 BMI result Body Mass Index 45.6 General: Appears afebrile. Alert and oriented. Mood and affect appropriate. Follows and participates in conversation appropriately. Respiratory effort is unlabored. Able to transition from sit to stand unassisted. Ambulates with bilaterally normal heel strike and toe off. Quality Reporting (2019) Adult ([facility] 138/04/01/68) Smoking risk assessment performed?: Yes Patient Tobacco Use Status: Never used Tobacco Results Reviewed Results Reviewed: No imaging is available for review. Assessment & Plan Assessment & Plan (1) Lumbar spondylosis: Code(s): M47.816 - Spondylosis without myelopathy or radiculopathy, lumbar region Category: Medical (2) Bilateral primary osteoarthritis of knee: Code(s): M17.0 - Bilateral primary osteoarthritis of knee Category: Medical Plan Discussed continuing weight loss in context of repeated cortisone injections which makes it harder to lose weight. I would like to focus on eliminating frequent corticosteroid injections so that he can continue on his path to reduce weight which will help with long-term improvement in his general health as well as painful conditions. For knee pain, discussed gel injections as possible treatment options for knees. Informed the patient that insurance approval is required. We will file a PA for approval and keep him updated. If insurance approves the injection, we will plan for Durolane injection under fluoroscopy on one side and then the other side two weeks later. For back pain, discussed temporary nerve stimulation as a potential alternative to cortisone injections given his morbid obesity and the need to reduce total cortisone intake to help reduce weight. We will plan for this next time his back pain starts to worsen. Patient is in agreement with the plan. Discussed the risks and benefits of the procedure with the patient in detail. All questions were answered. The patient is on board with the plan. Justification for interventional therapy: ? Patient with average pain > 6/10 ? Patient has had positive response to previous interventions with more than 80% sustained relief . Patient has a good understanding of their pain condition and has appropriate mental and social support Scribed for Dr. Mena by [place] medical information officer, on 01/12/2024. I, Dr. Mena, have personally reviewed and agree with the information entered by the scribe. Coding Level of Care Code Est Pt Level 4 (79460) Diagnoses Lumbar spondylosis M47.816 Bilateral primary osteoarthritis of knee M17.0
== END 2024-01-12 10:18 | disposition home or self-care (01) ==
PROVIDERS: PCP Internal Medicine; Visit Provider Internal Medicine
DX: M47.816 Spondylosis without myelopathy or radiculopathy, lumbar region (principal); M17.0 Bilateral primary osteoarthritis of knee
CPT/HCPCS: 99214

== ENCOUNTER → 2024-01-12 09:33 | Outpatient (BNVA) | payer OTHER, SELFPAY | PROVIDERS: PCP Internal Medicine; Visit Provider Internal Medicine | DX: M47.816 Spondylosis without myelopathy or radiculopathy, lumbar region (principal); M17.0 Bilateral primary osteoarthritis of knee | CPT/HCPCS: 99212 ==

== ENCOUNTER 2024-02-03 06:42 | Outpatient (REF) | payer OTHER, SELFPAY ==
--- NOTE | ~2024-02-03 | FL_ITS ---
EXAMINATION: FLUORO GUIDANCE IN TREATMENT ROOM CLINICAL INFORMATION: Bilateral primary osteoarthritis of the knee. Right knee injection. COMPARISON: None available. TECHNIQUE: Fluoroscopy supervised by: Dr. Yony Mena. Fluoroscopy time: 0.1 minutes. Cumulative Dose: 0.599 mGy. DAP: 0.90414 mGy-m2 (milligray-meter squared). Images: 3. FINDINGS: Needle overlies the medial compartment of the right knee joint with contrast injected. FL/FL guidance in treatment room IMPRESSION: Fluoroscopy during procedure. Please see procedure report for additional information. Electronically signed by: Joe Reeves MD 03/08/2024 09:28 AM [place]
== END 2024-02-03 06:43 | disposition home or self-care (01) ==
LOC: CF 06:42
PROVIDERS: Visit Provider Internal Medicine
DX: M17.0 Bilateral primary osteoarthritis of knee (principal)
CPT/HCPCS: 20610; J7318; Q9967

== ENCOUNTER 2024-02-03 11:20 | Outpatient (AMB) | payer OTHER, SELFPAY ==
[2024-02-03 11:42] VITALS: BP 134/72; PULSE 92; O2SAT 95
--- NOTE | 2024-02-03 11:42 | MHC.OFFVIS ---
Vital Signs 02/03/24 11:42 02/03/24 12:49 BP 134/72 150/74 H Blood Pressure Location Lt brachial Lt brachial Position Sitting Sitting Pulse 92 90 Pulse Source Pulse Oximeter Pulse Oximeter Pulse Oximetry (%) 95 98 Oxygen Delivery Method Room Air Room Air Intake Visit Reasons: Right knee Durolane inj Allergies hydrocodone [From VICODIN] Allergy (Severe, Verified 01/12/24 09:45) ANGIOEDEMA metformin [METFORMIN] Allergy (Intermediate, Verified 01/12/24 09:45) ITCHING/HEADACHE, rash HPI HPI Right knee Durolane inj: Details: Patient presents for scheduled procedure. Denies any recent cough, cold, infection, fever or other significant changes in medical history since last office visit. [facility] Medical History (Updated 01/12/24 @ 12:39 by Yony Mena MD) Pre-op chest exam Hypothyroidism, postablative Arthritis GERD (gastroesophageal reflux disease) Type 2 diabetes mellitus Glaucoma Asthma Anxiety Gout Depression Graves disease Super obesity Obstructive sleep apnea COPD (chronic obstructive pulmonary disease) Surgical History (Updated 06/12/21 @ 13:55 by Janeth Kunz PA-C) History of cardiac cath (~2015) History of eye surgery (~1997) History of umbilical hernia repair (~1997) History of laparoscopic adjustable gastric banding (~2006) History of Achilles tendon repair History of removal of laparoscopic gastric banding device (~2019) Family History Father No problems noted. Mother COPD (chronic obstructive pulmonary disease) Asthma Brother No problems noted. Brother No problems noted. Sister No problems noted. Daughter No problems noted. Daughter No problems noted. Daughter No problems noted. Social History (Updated 09/30/20 @ 09:30 by KHLOE Avendano) Alcohol intake: former Patient Tobacco Use Status: Never used Tobacco Substance Use Type: Former Substance User Physical Exam Vital Signs: Last Vital Signs Pulse 92 02/03/24 11:42 BP 134/72 02/03/24 11:42 Pulse Ox 95 02/03/24 11:42 Oxygen Delivery Method Room Air 02/03/24 11:42 Office Procedures AMB Joint Injection/Aspiration Joint Injection/Aspiration Details: The right knee was visualized using fluoroscopy. A 25 gauge needle was advanced intra-articularly under fluoroscopy and placement was confirmed with Omnipaque 1-2 cc 180 milligrams/mL. Following intra-articular confirmation, the prepackaged Durolane syringe containing 3 mL hyaluronic acid was retrieved and administered to the joint. The patient tolerated the procedure well. Coding 85216 - Large joint Procedure code (CPT) selection complete Office Meds Durolane 60 mg/3 mL intra-articular syringe Performing Provider: Yony Mena MD Performing Location: [facility] Administered by: Yony Mena MD on 02/03/24 12:34 Dose Route Admin Location Dispensed Lot Number Expiration Date NDC Felt Washing Machine Tender 60 mg intra-articular 3 mL [id number] 02/07/26 Quality Reporting (2019) Adult ([facility] 138/04/01/68) Smoking risk assessment performed?: Yes Patient Tobacco Use Status: Never used Tobacco Assessment & Plan Assessment & Plan (1) Bilateral primary osteoarthritis of knee: Code(s): M17.0 - Bilateral primary osteoarthritis of knee Category: Medical Plan Patient is status post right knee Durolane injection under fluoroscopy. Patient tolerated procedure well and was discharged home in stable condition with discharge instructions. All questions were answered. We will follow-up via telephone or in clinic to assess response to therapy. A follow-up appointment was made during today's visit. Orders: Orders FL guidance in treatment room Today M17.0 - Bilateral primary osteoarthritis of knee AMB Joint Injection/Aspiration Today M17.0 - Bilateral primary osteoarthritis of knee Coding Level of Care Code Procedure Only Diagnoses Bilateral primary osteoarthritis of knee M17.0 CPT Codes Coding - 98976 Large joint: 92968 - Large joint ([id number])
[2024-02-03 12:49] VITALS: BP 150/74; PULSE 90; O2SAT 98
== END 2024-02-03 12:51 | disposition home or self-care (01) ==
PROVIDERS: PCP Internal Medicine; Visit Provider Internal Medicine
DX: M17.0 Bilateral primary osteoarthritis of knee (principal)
CPT/HCPCS: 20610; 77002

== ENCOUNTER 2024-02-10 07:31 | Outpatient (REF) | payer OTHER, SELFPAY | END 2024-02-10 07:32 | disposition home or self-care (01) | LOC: CF 07:31 | PROVIDERS: Visit Provider Internal Medicine | DX: M17.0 Bilateral primary osteoarthritis of knee (principal) | CPT/HCPCS: 20610; J2795; J3301 ==

== ENCOUNTER 2024-02-10 09:49 | Outpatient (AMB) | payer OTHER, SELFPAY ==
[2024-02-10 10:00] VITALS: BP 152/80; PULSE 88; O2SAT 98
--- NOTE | 2024-02-10 10:00 | MHC.OFFVIS ---
Vital Signs 02/10/24 10:00 02/10/24 10:13 BP 152/80 H 141/87 H Blood Pressure Location Lt brachial Lt brachial Position Sitting Sitting Pulse 88 85 Pulse Source Pulse Oximeter Pulse Oximeter Pulse Oximetry (%) 98 95 Oxygen Delivery Method Room Air Room Air Intake Visit Reasons: left knee Durolane Allergies hydrocodone [From VICODIN] Allergy (Severe, Verified 01/12/24 09:45) ANGIOEDEMA metformin [METFORMIN] Allergy (Intermediate, Verified 01/12/24 09:45) ITCHING/HEADACHE, rash HPI HPI left knee Durolane: Details: Patient presents for left knee injection. Unfortunately the Durolane injection on the right side has not been very helpful. He would like to proceed with a corticosteroid injection instead. [facility] Medical History (Updated 01/12/24 @ 12:39 by Yony Mena MD) Pre-op chest exam Hypothyroidism, postablative Arthritis GERD (gastroesophageal reflux disease) Type 2 diabetes mellitus Glaucoma Asthma Anxiety Gout Depression Graves disease Super obesity Obstructive sleep apnea COPD (chronic obstructive pulmonary disease) Surgical History (Updated 06/12/21 @ 13:55 by Janeth Kunz PA-C) History of cardiac cath (~2015) History of eye surgery (~1997) History of umbilical hernia repair (~1997) History of laparoscopic adjustable gastric banding (~2006) History of Achilles tendon repair History of removal of laparoscopic gastric banding device (~2019) Family History Father No problems noted. Mother COPD (chronic obstructive pulmonary disease) Asthma Brother No problems noted. Brother No problems noted. Sister No problems noted. Daughter No problems noted. Daughter No problems noted. Daughter No problems noted. Social History (Updated 09/30/20 @ 09:30 by KHLOE Avendano) Alcohol intake: former Patient Tobacco Use Status: Never used Tobacco Substance Use Type: Former Substance User Physical Exam Vital Signs: Last Vital Signs Pulse 88 02/10/24 10:00 BP 152/80 H 02/10/24 10:00 Pulse Ox 98 02/10/24 10:00 Oxygen Delivery Method Room Air 02/10/24 10:00 Office Procedures AMB Joint Injection/Aspiration Joint Injection/Aspiration Primary Site: left knee Prep: site was prepped using sterile technique Injected: 40 mg of, Kenalog and with 3 mL of (Ropivacaine 0.5%) Approach Used: anteromedial Procedure: The patient tolerated the procedure well Coding 26618 - Large joint Procedure code (CPT) selection complete Quality Reporting (2019) Adult ([facility] 138/04/01/68) Smoking risk assessment performed?: Yes Patient Tobacco Use Status: Never used Tobacco Assessment & Plan Assessment & Plan (1) Bilateral primary osteoarthritis of knee: Code(s): M17.0 - Bilateral primary osteoarthritis of knee Category: Medical Plan Patient is status post left knee corticosteroid injection. Patient tolerated procedure well and was discharged home in stable condition with discharge instructions. All questions were answered. We will follow-up via telephone or in clinic to assess response to therapy. A follow-up appointment was made during today's visit. Orders: Orders US guide needle placement Today M17.0 - Bilateral primary osteoarthritis of knee Coding Level of Care Code Procedure Only Diagnoses Bilateral primary osteoarthritis of knee M17.0 CPT Codes Coding - 57128 Large joint: 25179 - Large joint ([id number])
[2024-02-10 10:13] VITALS: BP 141/87; PULSE 85; O2SAT 95
== END 2024-02-10 10:14 | disposition home or self-care (01) ==
LOC: HO.PMCPRC 09:49
PROVIDERS: PCP Internal Medicine; Visit Provider Internal Medicine
DX: M17.0 Bilateral primary osteoarthritis of knee (principal)
CPT/HCPCS: 20610

== ENCOUNTER 2024-03-01 09:31 | Outpatient (AMB) | payer OTHER, SELFPAY ==
[2024-03-01 10:02] VITALS: BP 142/74; PULSE 70; RESP 16; O2SAT 95; BMI 47.5
--- NOTE | 2024-03-01 10:02 | MHC.OFFVIS ---
Vital Signs 03/01/24 10:02 Height 5 ft 7 in Weight 303 lb BMI 47.5 BP 142/74 H Blood Pressure Location Lt brachial Position Sitting Respiration 16 Pulse 70 Pulse Source Pulse Oximeter Pulse Oximetry (%) 95 Oxygen Delivery Method Room Air Intake Visit Reasons: s/p paolo durolane Allergies hydrocodone [From VICODIN] Allergy (Severe, Verified 03/01/24 10:04) ANGIOEDEMA metformin [METFORMIN] Allergy (Intermediate, Verified 03/01/24 10:04) ITCHING/HEADACHE, rash Medication List - Last Reconciled 03/01/24 by Idalmis Negron LPN albuterol sulfate 2.5 mg (3 mL) inhalation Q8H PRN albuterol sulfate 90 mcg/actuation (Ventolin HFA) 2 puffs inhalation QID PRN allopurinol 300 mg PO DAILY amlodipine 5 mg PO DAILY aspirin 325 mg PO DAILY lxcjdwaxoe-uzswsugr-mtrgspzclf 160-9-4.8 mcg/actuation (Breztri Aerosphere) 2 inhalations inhalation BID 30 days cholecalciferol (vitamin D3) 50 mcg PO DAILY CPAP (CPAP Machine/Device) As directed diclofenac sodium 1% 2 grams topical QID empagliflozin (Jardiance) 10 mg PO QAM furosemide 40 mg PO DAILY humidifiers As directed isosorbide mononitrate ER 30 mg PO DAILY levothyroxine 200 mcg PO DAILY loratadine 10 mg PO DAILY losartan 100 mg PO DAILY metoprolol succinate ER 100 mg PO DAILY multivit-min #56-FA-vit K-Q10 200 mcg-1,000 mcg-10 mg (DEKAs Plus (folic acid)) 1 tab PO DAILY nitroglycerin 0 mg sublingual oxygen-air delivery systems As directed pantoprazole 40 mg PO DAILY potassium chloride ER 40 mEq PO BID rosuvastatin 10 mg PO BEDTIME sitagliptin phosphate (Januvia) 100 mg PO DAILY vilazodone (Viibryd) 10 mg PO DAILY HPI HPI s/p paolo durolane: Details: History of Present Illness The patient is a 63-year-old male presenting with knee pain follow-up. He recently underwent a fluoroscopy-guided gel injection to the right knee due to persistent osteoarthritis pain. Prior treatment included corticosteroid injections, which provided significant relief, approximately 75%. Despite some initial right knee pain post-injection, the patient noticed an improvement over time. However, he reports that the right knee continues to experience discomfort. Previous corticosteroid injections have been effective for both knees, but due to potential health implications, alternative treatment was considered. Pain is alleviated by sleeping at a 45-degree angle, reducing pressure on the back. The patient's goal is to limit corticosteroid use to support weight loss efforts. Pain Description - Onset: Gradual, related to established osteoarthritis. - Quality: Aching and intermittent. - Location: Primarily in the right knee, with past symptoms on the left. - Exacerbating factors: Laying flat increases back pain, and potential malalignment of knee contributing to symptoms. - Relieving factors: Elevation of head and upper body during sleep, adjustment in knee position. - Interference: Moderate limitation in weight-bearing activities, standing, and gait. Pain Management - Affect: Pain is causing discomfort, but the patient feels improvement lately. - Analgesia: Past corticosteroid injections, with good response. - Adverse Effects: None reported at this time. - Activities of Daily Living: Adequate relief noted after gel injection, discomfort persists primarily in weight-bearing activities. - Aberrant Drug Related Behaviors: None noted. [facility] Medical History (Updated 01/12/24 @ 12:39 by Yony Mena MD) Pre-op chest exam Hypothyroidism, postablative Arthritis GERD (gastroesophageal reflux disease) Type 2 diabetes mellitus Glaucoma Asthma Anxiety Gout Depression Graves disease Super obesity Obstructive sleep apnea COPD (chronic obstructive pulmonary disease) Surgical History (Updated 06/12/21 @ 13:55 by Janeth Kunz PA-C) History of cardiac cath (~2015) History of eye surgery (~1997) History of umbilical hernia repair (~1997) History of laparoscopic adjustable gastric banding (~2006) History of Achilles tendon repair History of removal of laparoscopic gastric banding device (~2019) Family History Father No problems noted. Mother COPD (chronic obstructive pulmonary disease) Asthma Brother No problems noted. Brother No problems noted. Sister No problems noted. Daughter No problems noted. Daughter No problems noted. Daughter No problems noted. Social History (Updated 09/30/20 @ 09:30 by KHLOE Avendano) Alcohol intake: former Patient Tobacco Use Status: Never used Tobacco Substance Use Type: Former Substance User Physical Exam Vital Signs: Last Vital Signs Pulse 70 03/01/24 10:02 Resp 16 03/01/24 10:02 BP 142/74 H 03/01/24 10:02 Pulse Ox 95 03/01/24 10:02 Oxygen Delivery Method Room Air 03/01/24 10:02 BMI result Body Mass Index 47.5 Quality Reporting (2019) Adult ([facility] 138/04/01/68) Smoking risk assessment performed?: Yes Patient Tobacco Use Status: Never used Tobacco Assessment & Plan Assessment & Plan (1) Bilateral primary osteoarthritis of knee: Code(s): M17.0 - Bilateral primary osteoarthritis of knee Category: Medical Plan Plan - Monitor response to recent gel injection in the right knee and re-evaluate its effectiveness over the next few months. - Plan for a potential repeat of the gel injection procedure under fluoroscopy when symptoms escalate. - Consider half-dose corticosteroid for the right knee if pain re-intensifies. - Defer gel injection on the left knee until pain resumes or becomes significant. - Plan to investigate further into knee bracing options if anatomical alignment and pressure distribution are issues. Patient was informed and verbally consented to the use of an ambient scribe for clinic note documentation during this visit. Discussion Notes We discussed the use of gel injections as an alternative to corticosteroid injections due to impacts on health and weight. The patient was informed that sometimes gel can cause temporary increased discomfort, and adjustments can be made to the injection technique in future procedures to optimize relief and mitigate potential pain. The patient is agreeable to reporting any escalation in knee discomfort, at which time we would assess the need for further intervention. Joint alignment's role in his symptoms was explained, and the option of wearing knee braces should symptoms indicate. Recommendations were agreed upon. Patient Instructions - Report any significant increase in knee discomfort. - Maintain a 45-degree sleeping posture to alleviate back stress. - Avoid flat back lying to prevent exacerbation of pain. - Monitor pain relief progress; contact us if knee symptoms worsen. - Consider using knee braces if pain persists or changes in alignment are noticed. Coding Level of Care Code Est Pt Level 3 (24541) Diagnoses Bilateral primary osteoarthritis of knee M17.0
== END 2024-03-01 10:36 | disposition home or self-care (01) ==
PROVIDERS: PCP Internal Medicine; Visit Provider Internal Medicine
DX: M17.0 Bilateral primary osteoarthritis of knee (principal)
CPT/HCPCS: 99213

== ENCOUNTER → 2024-03-01 09:31 | Outpatient (BNVA) | payer OTHER, SELFPAY | PROVIDERS: PCP Internal Medicine; Visit Provider Internal Medicine | DX: M17.0 Bilateral primary osteoarthritis of knee (principal) | CPT/HCPCS: 99212 ==

== ENCOUNTER 2024-04-24 09:38 | Outpatient (AMB) | payer OTHER, SELFPAY ==
--- NOTE | 2024-04-24 09:57 | MHC.OFFVIS ---
Vital Signs 04/24/24 09:59 Height 5 ft 7 in Weight 303 lb BMI 47.5 BP 142/81 H Blood Pressure Location Lt brachial Position Sitting Respiration 16 Pulse 76 Pulse Source Pulse Oximeter Pulse Oximetry (%) 96 Oxygen Delivery Method Room Air Intake Visit Reasons: Right Knee Injection Crystallizer Operator Required: No Rubber Flap Tuber Machine Operator: Rubber Flap Tuber Machine Operator Present Accompanied by: Chace Win Allergies hydrocodone [From VICODIN] Allergy (Severe, Verified 05/12/24 09:13) ANGIOEDEMA metformin [METFORMIN] Allergy (Intermediate, Verified 05/12/24 09:13) ITCHING/HEADACHE, rash Medication List - Last Reconciled 04/24/24 by Idalmis Negron, KAT albuterol sulfate 2.5 mg (3 mL) inhalation Q8H PRN albuterol sulfate 90 mcg/actuation (Ventolin HFA) 2 puffs inhalation QID PRN allopurinol 300 mg PO DAILY amlodipine 5 mg PO DAILY aspirin 325 mg PO DAILY hsdxgsuwiz-ijqxbvwy-ftrtrrstxm 160-9-4.8 mcg/actuation (Breztri Aerosphere) 2 inhalations inhalation BID 30 days cholecalciferol (vitamin D3) 50 mcg PO DAILY CPAP (CPAP Machine/Device) As directed diclofenac sodium 1% 2 grams topical QID empagliflozin (Jardiance) 10 mg PO QAM furosemide 40 mg PO DAILY humidifiers As directed isosorbide mononitrate ER 30 mg PO DAILY levothyroxine 200 mcg PO DAILY loratadine 10 mg PO DAILY losartan 100 mg PO DAILY metoprolol succinate ER 100 mg PO DAILY multivit-min #56-FA-vit K-Q10 200 mcg-1,000 mcg-10 mg (DEKAs Plus (folic acid)) 1 tab PO DAILY nitroglycerin 0 mg sublingual oxygen-air delivery systems As directed pantoprazole 40 mg PO DAILY potassium chloride ER 40 mEq PO BID rosuvastatin 10 mg PO BEDTIME sitagliptin phosphate (Januvia) 100 mg PO DAILY vilazodone (Viibryd) 10 mg PO DAILY HPI HPI Right Knee Injection: Details: History of Present Illness The patient is a 63-year-old male presenting with right knee pain. The knee pain is a longstanding issue, likely influenced by his history with contact sports such as football. There has been a history of hospital visits due to escalating pain, where he was incidentally diagnosed with atrial flutter. Fortunately, evaluations have confirmed robust cardiac function despite the atrial flutter diagnosis. The patient reports considerable pain, predominantly in the right knee, which has markedly affected his daily activities. A regime was set to alleviate the symptoms through intra-articular injections, with the current session addressing the right knee, and the plan for the left knee forthcoming. The knee pain remains the priority, with the recent atrial flutter acknowledged but not currently impacting the knee treatment strategy. The patient's cardiac status permits the continuation of pain management interventions as planned. Pain Description - Onset and Timing: Chronic knee pain, recently exacerbated. - Quality and Character: Severe pain in the right knee. - Primary Location: Right knee, with plans for eventual left knee treatment. - Exacerbating Factors: Previous involvement in contact sports, especially during high school. - Impact on Function: Significant effect on daily activities and lifestyle choices. Physical Exam - Musculoskeletal- The right knee was prepared for an intra-articular injection. Ultrasound was utilized for visualization. Results Pain Management - Affect: The patient reports significant impact on lifestyle and quality of life due to knee pain. - Analgesia: Administered 40 mg Kenalog intra-articularly in the right knee. - Adverse Effects: None reported during the procedure. - Activities of Daily Living: Pain has notably impacted daily activities. - Aberrant Drug Related Behaviors: None reported. Procedure - Right knee injection: Informed consent obtained. Right knee was marked. 40 mg of Kenalog was injected intra-articularly using 25G needle. The patient tolerated the procedure well with no blood loss reported. [facility] Medical History (Updated 01/12/24 @ 12:39 by Yony Mena MD) Pre-op chest exam Hypothyroidism, postablative Arthritis GERD (gastroesophageal reflux disease) Type 2 diabetes mellitus Glaucoma Asthma Anxiety Gout Depression Graves disease Super obesity Obstructive sleep apnea COPD (chronic obstructive pulmonary disease) Surgical History (Updated 06/12/21 @ 13:55 by Janeth Kunz PA-C) History of cardiac cath (~2015) History of eye surgery (~1997) History of umbilical hernia repair (~1997) History of laparoscopic adjustable gastric banding (~2006) History of Achilles tendon repair History of removal of laparoscopic gastric banding device (~2019) Family History Father No problems noted. Mother COPD (chronic obstructive pulmonary disease) Asthma Brother No problems noted. Brother No problems noted. Sister No problems noted. Daughter No problems noted. Daughter No problems noted. Daughter No problems noted. Social History (Updated 09/30/20 @ 09:30 by KHLOE Avendano) Alcohol intake: former Patient Tobacco Use Status: Never used Tobacco Substance Use Type: Former Substance User Physical Exam Vital Signs: Last Vital Signs Pulse 76 04/24/24 09:59 Resp 16 04/24/24 09:59 BP 142/81 H 04/24/24 09:59 Pulse Ox 96 04/24/24 09:59 Oxygen Delivery Method Room Air 04/24/24 09:59 BMI result Body Mass Index 47.5 Assessment & Plan Assessment & Plan (1) Bilateral primary osteoarthritis of knee: Code(s): M17.0 - Bilateral primary osteoarthritis of knee Category: Medical Plan Plan The current treatment involved the administration of an intra-articular injection in the right knee using Kenalog. The patient was counseled regarding the plan for addressing the left knee subsequently. Given the strong cardiac evaluation, the treatment strategy remains focused on managing knee pain through localized intervention. Patient was informed and verbally consented to the use of an ambient scribe for clinic note documentation during this visit. Discussion Notes I discussed the nature and purpose of the right knee injection with the patient, including the expected outcomes and any potential risks, which accompanied obtaining informed consent. There was a focus on managing knee pain through this localized approach, and the patient agreed to proceed. Follow-up was targeted for the left knee injection, maintaining safety given his stable cardiac status, despite recent diagnosis of atrial flutter. There were no adverse effects noted during the procedure, and the patient expressed understanding and agreement with the current management plan. Patient Instructions - Follow up next week for left knee injection. - Monitor the injection site and seek care if there are signs of infection or unusual pain. - Maintain usual activity levels as tolerated, avoiding any excessive strain on knees. - Contact the clinic if there are any concerns or worsening symptoms arise. Coding Level of Care Code Procedure Only Diagnoses Bilateral primary osteoarthritis of knee M17.0
[2024-04-24 09:59] VITALS: BP 142/81; PULSE 76; RESP 16; O2SAT 96; BMI 47.5
== END 2024-04-24 10:12 | disposition home or self-care (01) ==
LOC: HO.PMC 09:38
PROVIDERS: PCP Internal Medicine; Visit Provider Internal Medicine
DX: M17.0 Bilateral primary osteoarthritis of knee (principal)
CPT/HCPCS: 20610

== ENCOUNTER → 2024-04-24 09:38 | Outpatient (BNVA) | payer OTHER, SELFPAY | PROVIDERS: PCP Internal Medicine; Visit Provider Internal Medicine | DX: M17.0 Bilateral primary osteoarthritis of knee (principal) | CPT/HCPCS: 20610 ==

== ENCOUNTER 2024-05-12 09:07 | Outpatient (AMB) | payer OTHER, SELFPAY ==
--- NOTE | 2024-05-12 09:09 | MHC.OFFVIS ---
Vital Signs 05/12/24 09:11 Height 5 ft 7 in Weight 303 lb BMI 47.5 BP 146/82 H Blood Pressure Location Lt brachial Position Sitting Respiration 16 Pulse 74 Pulse Source Pulse Oximeter Pulse Oximetry (%) 98 Oxygen Delivery Method Room Air Intake Visit Reasons: Left Knee Injection Drying Machine Receiver Required: No Enrollment Eligibility Representative: Enrollment Eligibility Representative Present Accompanied by: Chace Win Allergies hydrocodone [From VICODIN] Allergy (Severe, Verified 05/12/24 09:13) ANGIOEDEMA metformin [METFORMIN] Allergy (Intermediate, Verified 05/12/24 09:13) ITCHING/HEADACHE, rash Medication List - Last Reconciled 05/12/24 by Idalmis Negron, KAT albuterol sulfate 2.5 mg (3 mL) inhalation Q8H PRN albuterol sulfate 90 mcg/actuation (Ventolin HFA) 2 puffs inhalation QID PRN allopurinol 300 mg PO DAILY amlodipine 5 mg PO DAILY aspirin 325 mg PO DAILY owibbpabbg-ketlyiuq-vqjeswbbzx 160-9-4.8 mcg/actuation (Breztri Aerosphere) 2 inhalations inhalation BID 30 days cholecalciferol (vitamin D3) 50 mcg PO DAILY CPAP (CPAP Machine/Device) As directed diclofenac sodium 1% 2 grams topical QID empagliflozin (Jardiance) 10 mg PO QAM furosemide 40 mg PO DAILY humidifiers As directed isosorbide mononitrate ER 30 mg PO DAILY levothyroxine 200 mcg PO DAILY loratadine 10 mg PO DAILY losartan 100 mg PO DAILY metoprolol succinate ER 100 mg PO DAILY multivit-min #56-FA-vit K-Q10 200 mcg-1,000 mcg-10 mg (DEKAs Plus (folic acid)) 1 tab PO DAILY nitroglycerin 0 mg sublingual oxygen-air delivery systems As directed pantoprazole 40 mg PO DAILY potassium chloride ER 40 mEq PO BID rosuvastatin 10 mg PO BEDTIME sitagliptin phosphate (Januvia) 100 mg PO DAILY vilazodone (Viibryd) 10 mg PO DAILY HPI HPI Left Knee Injection: Details: History of Present Illness The patient is a 63-year-old male presenting with osteoarthritis of the left knee. He has been receiving treatment for his knee conditions, with a previous gel injection in the right knee that helped alleviate symptoms but none yet in the left knee. The decision was made to proceed with a corticosteroid injection, as corticosteroid injections had been effective for him in the past. No specifics of exacerbating or relieving factors beyond the treatments were noted. Pain Description - Onset and Timing: Chronic with unspecified onset. - Quality and Character: Not explicitly detailed. - Primary Location: Left knee. - Areas of Radiation: Not mentioned. - Exacerbating Factors: Not explicitly discussed. - Relieving Factors: Cortisone injections in the past have been effective. - Interference with Activities: Not specified in the conversation. Procedure - A left knee corticosteroid injection was planned and executed following informed consent. - The procedure involved prepping the area with Chloraprep and using a 25-gauge needle. - 40 mg of Kenalog mixed with 2 mL of 0.25% ropivacaine was injected into the joint utilizing a landmark technique. - The patient tolerated the procedure well with no blood loss. Patient was informed and verbally consented to the use of an ambient scribe for clinic note documentation during this visit. [facility] Medical History (Updated 01/12/24 @ 12:39 by Yony Mena MD) Pre-op chest exam Hypothyroidism, postablative Arthritis GERD (gastroesophageal reflux disease) Type 2 diabetes mellitus Glaucoma Asthma Anxiety Gout Depression Graves disease Super obesity Obstructive sleep apnea COPD (chronic obstructive pulmonary disease) Surgical History (Updated 06/12/21 @ 13:55 by Janeth Kunz PA-C) History of cardiac cath (~2015) History of eye surgery (~1997) History of umbilical hernia repair (~1997) History of laparoscopic adjustable gastric banding (~2006) History of Achilles tendon repair History of removal of laparoscopic gastric banding device (~2019) Family History Father No problems noted. Mother COPD (chronic obstructive pulmonary disease) Asthma Brother No problems noted. Brother No problems noted. Sister No problems noted. Daughter No problems noted. Daughter No problems noted. Daughter No problems noted. Social History (Updated 09/30/20 @ 09:30 by KHLOE Avendano) Alcohol intake: former Patient Tobacco Use Status: Never used Tobacco Substance Use Type: Former Substance User Physical Exam Vital Signs: Last Vital Signs Pulse 74 05/12/24 09:11 Resp 16 05/12/24 09:11 BP 146/82 H 05/12/24 09:11 Pulse Ox 98 05/12/24 09:11 Oxygen Delivery Method Room Air 05/12/24 09:11 BMI result Body Mass Index 47.5 Assessment & Plan Assessment & Plan (1) Bilateral primary osteoarthritis of knee: Code(s): M17.0 - Bilateral primary osteoarthritis of knee Category: Medical Plan . Coding Level of Care Code Procedure Only Diagnoses Bilateral primary osteoarthritis of knee M17.0
[2024-05-12 09:11] VITALS: BP 146/82; PULSE 74; RESP 16; O2SAT 98; BMI 47.5
--- OUTSIDE RECORDS SUMMARY | 2024-05-12 09:48 | XMS_ITS | Clinical Summary ---
Author Organization [address] Address [address] [place] [phone] Phone Care Team Providers Care Regulatory Affairs Coordinator Name Role Phone Siena Cha MD Primary Care Provider [phone] Allergies Active Allergy Reactions Criticality Noted Date Comments Hydrocodone-Acetaminophen 04/02/2011 Metformin 10/21/2020 Medications allopurinoL (ZYLOPRIM) 300 mg tablet Take 1 tablet (300 mg total) by mouth 1 (one) time each day. 3 Active multivit-min #56-FA-vit K-Q10 (DEKAs Plus, folic acid,) 200 mcg-1,000 mcg-10 mg tablet,chewable Chew 1 tablet 1 (one) time each day. TAKE 1 TABLET BY MOUTH DAILY 4 Active traMADoL (ULTRAM) 50 mg tablet Take 1 tablet (50 mg total) by mouth 3 (three) times a day if needed for moderate pain. 4 Active amLODIPine (NORVASC) 5 mg tablet Take 1 tablet (5 mg total) by mouth 1 (one) time each day. 3 Active potassium chloride 20 mEq tablet extended release Take 20 mEq by mouth 1 (one) time each day. Active budesonide-glyco pyr-formoterol (Breztri Aerosphere) 160-9-4.8 mcg/actuation HFA aerosol inhaler inhaler Inhale 2 puffs by mouth 2 (two) times a day. Active albuterol 2.5 mg /3 mL (0.083 %) nebulizer solution Active pantoprazole (PROTONIX) 40 mg EC tablet Take 1 tablet (40 mg total) by mouth 1 (one) time each day before breakfast. 3 Active albuterol HFA (PROAIR HFA ; PROVENTIL HFA ; VENTOLIN HFA) 90 mcg/actuation inhaler Inhale 2 puffs by mouth 4 (four) times a day. Active levothyroxine (SYNTHROID, LEVOTHROID) 200 mcg tablet Take 1 tablet (200 mcg total) by mouth 1 (one) time each day before breakfast. 3 Active empagliflozin (Jardiance) 10 mg tablet Take 1 tablet (10 mg total) by mouth 1 (one) time each day in the morning. Active loratadine (CLARITIN) 10 mg tablet Take 1 tablet (10 mg total) by mouth 1 (one) time each day. Take 10 mg by mouth daily Active furosemide (LASIX) 40 mg tablet Take 1 tablet (40 mg total) by mouth 1 (one) time each day if needed. Active cholecalciferol (VITAMIN D-3) 50 mcg (2,000 unit) tablet Take 1 tablet (2,000 Units total) by mouth 1 (one) time each day. Active losartan (COZAAR) 100 mg tablet Take 1 tablet (100 mg total) by mouth 1 (one) time each day. Take 100 mg by mouth every morning. 3 Active nitroglycerin (NITROSTAT) 0.[address] 0.3 mg under the tongue every 5 minutes as needed. 3 Active Januvia 100 mg tablet Take 1 tablet (100 mg total) by mouth 1 (one) time each day. Active rivaroxaban (XARELTO) 20 mg tabletIndication s:Atrial flutter, unspecified type (CMS/HCC) Take 1 tablet (20 mg total) by mouth 1 (one) time each day. With meals 90 each 3 5 03/29/19 Active sotaloL (BETAPACE) 120 mg tablet Take 1 tablet (120 mg total) by mouth every 12 (twelve) hours. 90 tablet 1 Active metoprolol succinate (TOPROL-XL) 50 mg 24 hr tablet Take 1 tablet (50 mg total) by mouth 1 (one) time each day. Do not crush or chew. 90 tablet 1 5 Active Active Problems Problem Noted Date Diagnosed Date (HFpEF) heart failure with preserved ejection fr action 03/28/2024 Atrial flutter 03/15/2024 Overview (04/03/2024): New atrial flutter diagnosed Mar 2024. Started on sotalol 120 mg po BID. QT stable. Was on aspirin. Transition to Xarelto 20 mg daily starting April 03, 2024. Assessment & Plan (04/03/2024 3:26 PM EST): Orders: ECG 12 lead rivaroxaban (XARELTO) 20 mg tablet; Take 1 tablet (20 mg total) by mouth 1 (one) time each day. With meals Class 3 severe obesity with body mass index (BMI) of 45.0 to 49.9 in adult 01/24/2024 Assessment & Plan (04/03/2024 3:26 PM EST): Orders: ECG 12 lead CHF (congestive heart failur e), NYHA class II, chronic, diastolic 12/08/2021 Overview (04/02/2024): History of normal coronary angiogram. Improved after weight loss following bariatric surgery. Assessment & Plan (04/03/2024 3:26 PM EST): Orders: ECG 12 lead Edema 09/23/2020 Chronic kidney disease 04/02/2011 Assessment & Plan (04/03/2024 3:26 PM EST): Orders: ECG 12 lead DM (diabetes mellitus), type 2 with renal compli cations 04/02/2011 Essential hypertension 04/02/2011 Gout 04/02/2011 Hyperlipidemia 04/02/2011 Overview (01/24/2024): IMO update Hypothyroidism 04/02/2011 Obstructive sleep apnea 04/02/2011 Assessment & Plan (04/03/2024 3:26 PM EST): Orders: ECG 12 lead Leg edema 04/02/2011 Resolved Problems Problem Noted Date Diagnosed Date Resolved Date Atrial fibrillation with RVR 03/14/2024 03/16/2024 Encounters Date Type Department Care Team Description 04/10/2024 Telephone [facility] [address] [place] [phone] Junie Valdez MD Appointment 04/10/2024 Telephone [facility] [address] [place] [phone] Junie Valdez MD Med Refill 04/03/2024 2:30 PM EST Office Visit [facility] [address] [place] [address] Junie Valdez MD CHF (congestive heart failure), NYHA class II, chronic, diastolic (CMS/HCC) (Primary Dx); Stage 3 chronic kidney disease, unspecified whether stage 3a or 3b CKD (CMS/HCC); Obstructive sleep apnea; Class 3 severe obesity with serious comorbidity and body mass index (BMI) of 45.0 to 49.9 in adult, unspecified obesity type (CMS/HCC); Atrial flutter, unspecified type (CMS/HCC) 03/20/2024 Telephone [facility] [address] [place] [address] Junie Valdez MD 03/14/2024 10:10 AM EST - 03/16/2024 7:25 PM EST Hospital Encounter [facility] [address] [place] [phone] Elmer Cochran MD Markham, Jay D, MD Kela, Kashyap Devendrabhai, MD Atrial fibrillation, unspecified type (CMS/HCC) (Primary Dx); Atrial fib/flutter, transient ([facility]); Atrial flutter with rapid ventricular response ([facility]) Discharge Disposition: Home or Self Care 03/13/2024 Telephone [facility] [address] [place] [address] Junie Valdez MD 03/06/2024 Telephone [facility] [place] [address] [place] [address] Fartun Goldstein MA from Last 3 Months Surgical History Surgery Date Site/Laterality Comments OTHER SURGICAL HISTORY PROCEDURE: AK LAPS GASTRIC RESTRICTIVE PROCEDURE PLACE DEVICE OTHER SURGICAL HISTORY PROCEDURE: HISTORY OTHER; COMMENT: lap removal of gastric band OTHER SURGICAL HISTORY Right PROCEDURE: HISTORY OTHER; COMMENT: achilles repair OTHER SURGICAL HISTORY PROCEDURE: AK RPR UMBILICAL HRNA 5 YRS/> REDUCIBLE; COMMENT: no mesh, open OTHER SURGICAL HISTORY Bilateral PROCEDURE: HISTORY OTHER; COMMENT: eye surgery -for graves disease Medical History Medical History Date Comments Hypertension 04/02/2011 DX:Hypertension Historical Medical DX 04/02/2011 DX:Hyperli pidemia LDL goal < 70 DM type 2 (diabetes mellitus , type 2) ([facility]) 04/02/2011 DX:DM type 2 (diabetes melli tus, type 2) ([facility]) Morbid obesity ([facility]) 04/02/2011 DX:Morb id obesity ([facility]) Obstructive sleep apnea 04/02/2011 DX:Obstr uctive sleep apnea Hx of laparoscopic gastric banding 04/02/2011 DX:Hx of laparoscopic gastric banding Leg edema 04/02/2011 DX:Leg edema CKD (chronic kidney disease) 04/02/2011 DX: CKD (chronic kidney disease) Gout, unspecified 04/02/2011 DX:Gout, unspe cified Unspecified hypothyroidism 04/02/2011 DX:Un specified hypothyroidism DM (diabetes mellitus), type 2 with renal complications ([facility]) 04/02/2011 DX:DM (diabetes mellitus ), type 2 with renal complications ([facility]) CHF (congestive heart failur e) ([facility]) DX:CHF (congestive heart thalia lure) ([facility]) Glaucoma DX:Glaucoma PTSD (post-traumatic stress disorder) DX:PTSD (post-traumatic stress disorder) Social History Tobacco Use Types Packs/Day Years Used Date Smoking Tobacco: Never Smokeless Tobacco: Never Alcohol Use Standard Drinks/Week Comments Not Currently 0 (1 standard drink = 0.6 oz pur e alcohol) Interpersonal Safety Answer Date Record ed Physical Abuse 03/14/2024 Verbal Abuse 03/14/2024 Sex and Gender Information Value Date Recorded Sex Assigned at Not on file Legal Sex Male 9:35 AM EST Gender Identity Not on file Sexual Orientation Not on file Obstetrics History Last Filed Vital Signs Vital Sign Reading Time Taken Comments Blood Pressure 126/82 04/03/2024 2:27 PM EST Pulse 73 04/03/2024 2:27 PM EST Temperature 36.1 ??C (97 ??F) 03/16/2024 12:00 PM EST Respiratory Rate 18 03/16/2024 12:00 PM EST Oxygen Saturation 96% 04/03/2024 2:27 PM EST Inhaled Oxygen Concentration - - Weight 137 kg (303 lb) 04/03/2024 2:27 PM EST Height 170.2 cm (5' 7 ) 04/03/2024 2:27 PM EST Body Mass Index 47.46 04/03/2024 2:27 PM EST Plan of Treatment Upcoming Encounters Date Type Department Care Team (Late st Contact Info) Description 07/05/2024 8:30 AM EDT Office Visit [facility] [place] [address] [facility] [address] [place] [phone] Brie Lynn MD [address] [facility] [address] [place] [phone] 08/17/2024 8:10 AM EDT Office Visit [facility] [address] [place] [address] John Mcconnell NP [address] [place] [address] [address] [place] [address] Health Maintenance Due Date Last Done Comments Diabetes: Annual Foot Exam 06/09/1969 Diabetes: Annual Retina Eye Exam 06/09/1969 Colorectal Cancer Screening: Colonoscopy 01/17/2022 Depression Screening 01/17/2022 HIV Screening 01/17/2022 Hepatitis C Screening 01/17/2022 Medicare Annual Wellness Visit 01/17/2022 Social Influencers of Health Screening 01/17/2022 Pneumococcal Vaccine: 50+ Years (3 of 3 - PCV20 or PCV21) 10/21/2023 10/20/2018, 08/17/2017, 10/01/2014 Pneumococcal Vaccine: Pediatrics (0 to 5 Years) and At-Risk Patients (6 to 64 Years) (3 of 3 - PCV20 or PCV21) 10/21/2023 10/20/2018, 08/17/2017, 10/01/2014 Diabetes: Blood Sugar Control Test (HGBA1C) 09/18/2024 03/21/2024, 12/13/2023, 12/10/2021 Diabetes: Annual Urine Albumin-Creatinine Ratio (uACR) 11/16/2024 11/17/2023 Diabetes: Annual GFR (Glomerular Filtration Rate) 03/21/2025 03/21/2024, 03/16/2024, 03/15/2024, Additional history exists Hypertension/CHF/CAD Annual BMP Blood Test 03/21/2025 03/21/2024, 03/16/2024, 03/15/2024, Additional history exists DTaP,Tdap,and Td Vaccines (2 - Td or Tdap) 09/23/2026 09/23/2016 Cholesterol Screening (Lipid Panel) 12/12/2028 12/13/2023 RSV Immunization Adult Patients Completed 10/17/2022 Zoster Vaccines Completed 08/06/2023, 05/09, 09/18/2020, Additional history exists COVID-19 Vaccine Completed 10/19/2023, 07/2022, 03/10/2022, Additional history exists Influenza Vaccine Completed 10/19/2023, , 11/01/2021, Additional history exists HIB Vaccines Aged Out No longer eligi ble based on patient's age to complete this topic HPV Vaccines Aged Out No longer eligi ble based on patient's age to complete this topic Hepatitis A Vaccines Aged Out No long er eligible based on patient's age to complete this topic Hepatitis B Vaccines Aged Out No long er eligible based on patient's age to complete this topic IPV Vaccines Aged Out No longer eligi ble based on patient's age to complete this topic MMR Vaccines Aged Out No longer eligi ble based on patient's age to complete this topic Meningococcal ACWY Vaccine Aged Out N o longer eligible based on patient's age to complete this topic Meningococcal B Vacine Aged Out No lo nger eligible based on patient's age to complete this topic RSV Immunization Patients Under 20 months Aged Out No longer eligible based on patient's age to complete this topic Varicella Vaccines Aged Out No longer eligible based on patient's age to complete this topic Procedures Procedure Name Priority Date/Time Associated Diagnosis Comments ECG 12-LEAD Routine 04/03/2024 2:46 PM EST CHF (congestive heart failure), NYHA class II, chronic, diastolic (CMS/HCC) Stage 3 chronic kidney disease, unspecified whether stage 3a or 3b CKD ([facility]) Obstructive sleep apnea Class 3 severe obesity with serious comorbidity and body mass index (BMI) of 45.0 to 49.9 in adult, unspecified obesity type ([facility]) Atrial flutter, unspecified type (CMS/HCC) THYROID STIMULATING HORMONE Routine 03/21/2024 8:53 AM EST Diabetes mellitus (CMS/HCC) Postsurgical hypothyroidism Obstructive sleep apnea (adult) (pediatric) Essential hypertension, benign HEMOGLOBIN A1C Routine 03/21/2024 8:53 AM EST Diabetes mellitus (CMS/HCC) Postsurgical hypothyroidism Obstructive sleep apnea (adult) (pediatric) Essential hypertension, benign COMPREHENSIVE METABOLIC PANEL Routine 03/21/2024 8:53 AM EST Diabetes mellitus (CMS/HCC) Postsurgical hypothyroidism Obstructive sleep apnea (adult) (pediatric) Essential hypertension, benign ECG 12-LEAD Routine 03/16/2024 6:01 PM EST POCT GLUCOSE BLOOD Routine 03/16/2024 4: 18 PM EST POCT GLUCOSE BLOOD Routine 03/16/2024 12 :58 PM EST POCT GLUCOSE BLOOD Routine 03/16/2024 7: 51 AM EST ECG 12-LEAD Routine 03/16/2024 6:06 AM EST MAGNESIUM Routine 03/16/2024 5:52 AM EST BASIC METABOLIC PANEL Routine 03/16/2024 5:52 AM EST COMPLETE BLOOD COUNT Routine 03/16/2024 5:52 AM EST PHOSPHORUS Routine 03/16/2024 5:52 AM EST POCT GLUCOSE BLOOD Routine 03/15/2024 7: 31 PM EST ECG 12-LEAD Routine 03/15/2024 6:00 PM EST POCT GLUCOSE BLOOD Routine 03/15/2024 3: 10 PM EST POCT GLUCOSE BLOOD Routine 03/15/2024 11 :09 AM EST ECG 12-LEAD Routine 03/15/2024 9:40 AM EST POCT GLUCOSE BLOOD Routine 03/15/2024 7: 35 AM EST COMPLETE BLOOD COUNT Routine 03/15/2024 5:40 AM EST BASIC METABOLIC PANEL Routine 03/15/2024 5:40 AM EST CPAP NIV Routine 03/14/2024 10:01 PM EST ECG 12-LEAD Routine 03/14/2024 8:12 PM EST POCT GLUCOSE BLOOD Routine 03/14/2024 8: 09 PM EST ECG 12-LEAD Routine 03/14/2024 4:01 PM EST RESPIRATORY VIRUS PANEL MOLECULAR STUDY STAT 03/14/2024 3:47 PM EST POCT GLUCOSE BLOOD Routine 03/14/2024 3: 34 PM EST TRANSTHORACIC ECHOCARDIOGRAM (TTE) COMPLETE W/ CONTRAST Routine 03/14/2024 2:44 PM EST Atrial fib/flutter, transient (CMS/HCC) TROPONIN I HIGH SENSITIVITY STAT 03/14/2024 12:10 PM EST ECG 12-LEAD STAT 03/14/2024 12:04 PM EST XR CHEST 2 VIEWS STAT 03/14/2024 11:[address] ANGIO CHEST WO AND/OR W CONTRAST STAT 03/14/2024 11:17 AM EST Atrial fibrillation, unspecified type (CMS/HCC) ECG 12-LEAD STAT 03/14/2024 10:58 AM EST CBC WITH AUTO DIFFERENTIAL STAT 03/14/2024 10:20 AM EST PROTHROMBIN TIME WITH INR STAT 03/14/2024 10:20 AM EST ACTIVATED PARTIAL THROMBOPLASTIN TIME STAT 03/14/2024 10:20 AM EST B-TYPE NATRIURETIC PEPTIDE STAT 03/14/2024 10:20 AM EST MAGNESIUM STAT 03/14/2024 10:20 AM EST LIPASE STAT 03/14/2024 10:20 AM EST COMPREHENSIVE METABOLIC PANEL STAT 03/14/2024 10:20 AM EST CBC AND DIFFERENTIAL STAT 03/14/2024 10:20 AM EST TROPONIN I HIGH SENSITIVITY STAT 03/14/2024 10:20 AM EST ECG 12-LEAD STAT 03/14/2024 10:03 AM EST ECG ANNOTATED 03/14/2024 CBC WITH AUTO DIFFERENTIAL Routine 03/01/2024 9:00 AM EST Bariatric surgery status CBC AND DIFFERENTIAL Routine 03/01/2024 9:00 AM EST Bariatric surgery status COMPREHENSIVE METABOLIC PANEL Routine 03/01/2024 9:00 AM EST Bariatric surgery status VITAMIN B12 Routine 03/01/2024 9:00 AM EST Bariatric surgery status VITAMIN D 25 HYDROXY Routine 03/01/2024 9:00 AM EST Bariatric surgery status LIPID PANEL WITH REFLEX TO DIRECT LDL Routine 12/13/2023 8:54 AM EST History of partial thyroidectomy Obstructive sleep apnea (adult) (pediatric) Nephrogenous proteinuria from Last 3 Months or Most Recently Relevant to Health Maintenance Results * ECG 12 lead (04/03/2024 2:46 PM EST) Only the most recent of10 resultswithin the time period is included. Ventricular Rate ECG 73 BPM GEMUSE Atrial Rate 73 BPM GEMUSE P-R Interval 146 ms GEMUSE QRS Duration 80 ms GEMUSE Q-T Interval 394 ms GEMUSE QTc 434 ms GEMUSE P Wave [place] 76 degrees GEMUSE R [place] 41 degrees GEMUSE T [place] 57 degrees GEMUSE ECG Interpretation Normal sinus rhythm Normal ECG When compared with ECG of 16-MAR-2024 18:01, No significant change was found Confirmed by JUNIE VALDEZ ([id number]) on 04/03/2024 3:26:58 PM GEMUSE 04/03/2024 2:46 PM EST 04/03/2024 3:26 PM EST us Junie Valdez MD ECG ORDERABLES Final Result GEMUSE * (ABNORMAL) Thyroid stimulating hormone (03/21/2024 8:53 AM EST) TSH 0.34(L) 0.40 - 4.00 mcIU/mL LAB CHEMISTRY METHOD 03/21/2024 10:24 AM EST [facility] Blood Venous blood specimen / Unknown Venipuncture / Unknown 03/21/2024 8:53 AM EST 03/21/2024 9:13 AM EST us Siena Cha MD LAB BLOOD ORDERABLES Final Re sult Performing Organization Address [facility]/ZIP Co de Phone Number [facility] [address] [place] [address], [place] [phone] * (ABNORMAL) Hemoglobin A1c (03/21/2024 8:53 AM EST) Hemoglobin A1C 6.5(H) <6.5 % LAB CHEMISTRY METHOD 03/21/2024 1:13 PM EST [facility] Mean Bld Glu Estim. 140 mg/dL LAB CHEMISTRY METHOD 03/21/2024 1:13 PM EST [facility] Blood Venous blood specimen / Unknown Venipuncture / Unknown 03/21/2024 8:53 AM EST 03/21/2024 9:13 AM EST us Siena Cha MD LAB BLOOD ORDERABLES Final Re sult Performing Organization Address [facility] Co de Phone Number [facility] [address] [place] [address], [place] [phone] * (ABNORMAL) Comprehensive metabolic panel (03/21/2024 8:53 AM EST) Only the most recent of3 resultswithin the time period is included. Sodium 142 133 - 145 mmol/L LAB CHEMISTRY METHOD 03/21/2024 9:55 AM EST [facility] Potassium 4.2 3.5 - 5.5 mmol/L LAB CHEMISTRY METHOD 03/21/2024 9:55 AM EST [facility] Chloride 109 96 - 110 mmol/L LAB CHEMISTRY METHOD 03/21/2024 9:55 AM EST [facility] CO2 31 21 - 32 mmol/L LAB CHEMISTRY METHOD 03/21/2024 9:55 AM [facility] Anion Gap 2(L) 3 - 11 LAB CHEMISTRY METHOD 03/21/2024 9:55 AM [facility] Glucose 130(H) 70 - 100 mg/dL LAB CHEMISTRY METHOD 03/21/2024 9:55 AM [facility] BUN 19 5 - 25 mg/dL LAB CHEMISTRY METHOD 03/21/2024 9:55 AM [facility] Creatinine 1.07 0.70 - 1.30 mg/dL LAB CHEMISTRY METHOD 03/21/2024 9:55 AM [facility] eGFR 77 >=60 mL/min/1. 73m2 LAB CHEMISTRY METHOD 03/21/2024 9:55 AM [facility] Comment:Calculation based on the??Chronic Kidney Disease Epidemiology Collaboration (CKD-EPI) equation refit??without adjustment for race. BUN/Creatinine Ratio 17.8 LAB CHEMISTRY METHOD 03/21/2024 9:55 AM [facility] Calcium 9.1 8.5 - 10.5 mg/dL LAB CHEMISTRY METHOD 03/21/2024 9:55 AM [facility] AST (SGOT) 18 10 - 42 unit/L LAB CHEMISTRY METHOD 03/21/2024 9:55 AM [facility] ALT (SGPT) 25 10 - 60 unit/L LAB CHEMISTRY METHOD 03/21/2024 9:55 AM [facility] Alkaline Phosphatase 153(H) 42 - 121 unit/L LAB CHEMISTRY METHOD 03/21/2024 9:55 AM [facility] Total Protein 6.6 6.0 - 8.0 g/dL LAB CHEMISTRY METHOD 03/21/2024 9:55 AM [facility] Albumin 3.5 3.2 - 5.0 g/dL LAB CHEMISTRY METHOD 03/21/2024 9:55 AM [facility] Total Bilirubin 1.0 0.0 - 1.4 mg/dL LAB CHEMISTRY METHOD 03/21/2024 9:55 AM EST [facility] Blood Venous blood specimen / Unknown Venipuncture / Unknown 03/21/2024 8:53 AM EST 03/21/2024 9:13 AM EST Siena Cha MD LAB BLOOD ORDERABLES Final Re sult Performing Organization Address City/[facility]/ZIP Co de Phone Number [facility] [address] [place] [address], [place] [phone] * (ABNORMAL) POCT Glucose, blood (03/16/2024 4:18 PM EST) Only the most recent of9 resultswithin the time period is included. Glucose POCT 119(H) 70 - 100 mg/dL 03/16/2024 4:19 PM EST [facility] Blood Capillary blood specimen / Unknown 03/16/2024 4:18 PM EST 03/16/2024 4:20 PM EST Edmundo Scott MD LAB POINT OF CARE TE ST DOCKED DEVICE UNSOLICITED RESULTS Final Result Performing Organization Address [facility] de Phone Number [facility] [address] [place] [address], [place] [phone] * (ABNORMAL) Complete blood count (03/16/2024 5:52 AM EST) Only the most recent of2 resultswithin the time period is included. WBC 6.4 4.8 - 10.8 K/mcL LAB HEMETOLOGY METHOD 03/16/2024 6:17 AM EST [facility] RBC 5.70(H) 4.50 - 5.50 M/mcL LAB HEMETOLOGY METHOD 03/16/2024 6:17 AM EST [facility] Hemoglobin 14.8 13.5 - 17.5 g/dL LAB HEMETOLOGY METHOD 03/16/2024 6:17 AM [facility] Hematocrit 43.6 42.0 - 54.0 % LAB HEMETOLOGY METHOD 03/16/2024 6:17 AM [facility] MCV 77.0(L) 79.0 - 98.0 FL LAB HEMETOLOGY METHOD 03/16/2024 6:17 AM [facility] MCH 26.1(L) 27.0 - 32.0 pcg LAB HEMETOLOGY METHOD 03/16/2024 6:17 AM [facility] MCHC 33.9 32.0 - 37.0 g/dL LAB HEMETOLOGY METHOD 03/16/2024 6:17 AM [facility] RDW 14.5 11.0 - 15.0 % LAB HEMETOLOGY METHOD 03/16/2024 6:17 AM [facility] Platelets 229 130 - 400 K/mcL LAB HEMETOLOGY METHOD 03/16/2024 6:17 AM [facility] MPV 12.1(H) 7.0 - 11.0 FL LAB HEMETOLOGY METHOD 03/16/2024 6:17 AM [facility] NRBC 0.0 <1.0 % LAB HEMETOLOGY METHOD 03/16/2024 6:17 AM [facility] NRBC Absolute 0.00 <0.10 K/mcL LAB HEMETOLOGY METHOD 03/16/2024 6:17 AM [facility] Blood Venous blood specimen / Unknown Venipuncture / Unknown 03/16/2024 5:52 AM EST 03/16/2024 6:03 AM EST us Mike Weber MD LAB BLOOD ORDERABLE S Final Result [facility] [address] [place] [address], [place] [phone] * Phosphorus (03/16/2024 5:52 AM EST) [facility] Phosphorus 2.6 2.5 - 4.5 mg/dL LAB CHEMISTRY METHOD 03/16/2024 6:38 AM EST [facility] Blood Venous blood specimen / Unknown Venipuncture / Unknown 03/16/2024 5:52 AM EST 03/16/2024 6:04 AM EST us Mike Weber MD LAB BLOOD ORDERABLE S Final Result Performing Organization Address [facility]/ZIP Co de Phone Number [facility] [address] [place] [address], [place] [phone] * Magnesium (03/16/2024 5:52 AM EST) Only the most recent of2 resultswithin the time period is included. [facility] Magnesium 2.2 1.9 - 2.6 mg/dL LAB CHEMISTRY METHOD 03/16/2024 6:38 AM EST [facility] Blood Venous blood specimen / Unknown Venipuncture / Unknown 03/16/2024 5:52 AM EST 03/16/2024 6:04 AM EST us Mike Weber MD LAB BLOOD ORDERABLE S Final Result Performing Organization Address City/[facility]/ZIP Co de Phone Number [facility] [address] [place] [address], [place] [phone] * (ABNORMAL) Basic metabolic panel (03/16/2024 5:52 AM EST) Only the most recent of2 resultswithin the time period is included. [facility] Sodium 137 133 - 145 mmol/L LAB CHEMISTRY METHOD 03/16/2024 6:43 AM EST [facility] Potassium 3.4(L) 3.5 - 5.5 mmol/L LAB CHEMISTRY METHOD 03/16/2024 6:43 AM [facility] Chloride 104 96 - 110 mmol/L LAB CHEMISTRY METHOD 03/16/2024 6:43 AM [facility] CO2 31 21 - 32 mmol/L LAB CHEMISTRY METHOD 03/16/2024 6:43 AM [facility] Anion Gap 2(L) 3 - 11 LAB CHEMISTRY METHOD 03/16/2024 6:43 AM [facility] Glucose 129(H) 70 - 100 mg/dL LAB CHEMISTRY METHOD 03/16/2024 6:43 AM [facility] BUN 19 5 - 25 mg/dL LAB CHEMISTRY METHOD 03/16/2024 6:43 AM [facility] Creatinine 1.08 0.70 - 1.30 mg/dL LAB CHEMISTRY METHOD 03/16/2024 6:43 AM [facility] eGFR 77 >=60 mL/min/1. 73m2 LAB CHEMISTRY METHOD 03/16/2024 6:43 AM [facility] Comment:Calculation based on the??Chronic Kidney Disease Epidemiology Collaboration (CKD-EPI) equation refit??without adjustment for race. BUN/Creatinine Ratio 17.6 LAB CHEMISTRY METHOD 03/16/2024 6:43 AM [facility] Calcium 9.2 8.5 - 10.5 mg/dL LAB CHEMISTRY METHOD 03/16/2024 6:43 AM [facility] Blood Venous blood specimen / Unknown Venipuncture / Unknown 03/16/2024 5:52 AM EST 03/16/2024 6:04 AM EST us Mike Weber MD LAB BLOOD ORDERABLE S Final Result [facility] [address] [place] [address], * Respiratory virus panel molecular study (03/14/2024 3:47 PM EST) [facility] Adenovirus Detection by PCR Not Detected Not Detected LAB MICROBIOLOGY METHOD 03/14/2024 4:46 PM [facility] Influenza A PCR Not Detected Not Detected LAB MICROBIOLOGY METHOD 03/14/2024 4:46 PM [facility] Influenza B PCR Not Detected Not Detected LAB MICROBIOLOGY METHOD 03/14/2024 4:46 PM [facility] Coronavirus 229E Not Detected Not Detected LAB MICROBIOLOGY METHOD 03/14/2024 4:46 PM [facility] Coronavirus HKU1 Not Detected Not Detected LAB MICROBIOLOGY METHOD 03/14/2024 4:46 PM [facility] Coronavirus OC43 Not Detected Not Detected LAB MICROBIOLOGY METHOD 03/14/2024 4:46 PM [facility] Coronavirus NL63 Not Detected Not Detected LAB MICROBIOLOGY METHOD 03/14/2024 4:46 PM [facility] Parainfluenza Virus 1 Not Detected Not Detected LAB MICROBIOLOGY METHOD 03/14/2024 4:46 PM [facility] Parainfluenza Virus 2 Not Detected Not Detected LAB MICROBIOLOGY METHOD 03/14/2024 4:46 PM [facility] Parainfluenza Virus 3 Not Detected Not Detected LAB MICROBIOLOGY METHOD 03/14/2024 4:46 PM [facility] Parainfluenza Virus 4 Not Detected Not Detected LAB MICROBIOLOGY METHOD 03/14/2024 4:46 PM [facility] RSV PCR Not Detected Not Detected LAB MICROBIOLOGY METHOD 03/14/2024 4:46 PM [facility] Human Metapneumovirus A and B Not Detected Not Detected LAB MICROBIOLOGY METHOD 03/14/2024 4:46 PM [facility] Rhinovirus/Entero virus Not Detected Not Detected LAB MICROBIOLOGY METHOD 03/14/2024 4:46 PM [facility] Bordetella pertussis Not Detected Not Detected LAB MICROBIOLOGY METHOD 03/14/2024 4:46 PM EST [facility] Bordetella parapertussis Not Detected Not Detected LAB MICROBIOLOGY METHOD 03/14/2024 4:46 PM [facility] Mycoplasma pneumo by PCR Not Detected Not Detected LAB MICROBIOLOGY METHOD 03/14/2024 4:46 PM EST [facility] Chlamydia pneumoniae Not Detected Not Detected LAB MICROBIOLOGY METHOD 03/14/2024 4:46 PM EST [facility] SARS COV-2 Not Detected Not Detected LAB MICROBIOLOGY METHOD 03/14/2024 4:46 PM [facility] Swab Both anterior nares / Unknown Non-blood Collection / Unknown 03/14/2024 3:47 PM EST 03/14/2024 3:55 PM EST [facility] - 03/14/2024 4:46 PM EST Testing was performed using the [employer] Respiratory Pathogen PCR Assay. All results must be correlated with the clinical findings. Results should not be used as the sole basis for diagnosis. False Negative results may occur from the presence of sequence variants in the region targeted by the assay or the presence of inhibitors. Results may be affected by concurrent antiviral/antimicrobial therapy or levels of organisms that are below the limit of detection. us Vijaya Del Rio NP LAB MICROBIOLOGY - GENER AL ORDERABLES Final Result [facility] [address] [place] [address], * (ABNORMAL) TRANSTHORACIC ECHOCARDIOGRAM (TTE) COMPLETE W/ CONTRAST (03/14/2024 2:44 PM EST) LV EDV (A2C) 136 mL CV PACS LV EDV (A4C) 144 mL CV PACS LV Diastolic Volume (BP) 142 62 - 150 mL CV PACS LV ESV (A2C) 60 mL CV PACS LV ESV (A4C) 71 mL CV PACS LV Systolic Volume (BP) 67(A) 21 - 61 mL CV PACS IVSD 1.2(A) 0.6 - 1.0 cm CV PACS LVIDD 4.6 4.2 - 5.8 cm CV PACS LVIDS 3.5 2.5 - 4.0 cm CV PACS LVOT Diameter 2.1 cm CV PACS LVPWD 1.1(A) 0.6 - 1.0 cm CV PACS MV E' Tissue Velocity Lateral 7 cm/s CV PACS MV E' Tissue Velocity Septal 6 cm/s CV PACS Ejection Fraction (A2C) 56 % CV PACS Ejection Fraction (A4C) 51 % CV PACS Ejection Fraction (BP) 53 % CV PACS LVOT Area 3.5 cm2 CV PACS Left Atrium Major [place] 6.0 cm CV PACS LA Area Sys (A4C) 24 cm2 CV PACS RA Area 21.9 cm2 CV PACS RA 2D Volume 69 mL CV PACS Aortic Sinus Valsalva 3.8 cm CV PACS Ascending Aorta 3.8 cm CV PACS E Wave Deceleration Time 250(A) 119 - 242 ms CV PACS MV Peak A Dylan 1.00 m/s CV PACS MV Peak E Dylan 0.72 m/s CV PACS PV Acceleration Time 109 ms CV PACS RV Diastolic Basal Dimension 4.1 2.5 - 4.1 cm CV PACS RV S' 9 cm/s CV PACS TAPSE 22 mm CV PACS TR Peak Velocity 2.21 m/s CV PACS TR Peak Gradient 20 mmHg CV PACS LV ESV Index (A4C) 30 mL/m2 CV PACS LV EDV Index (A4C) 60 mL/m2 CV PACS E/E' Ratio Septal 12 CV PACS E/E' Ratio Averaged 11 CV PACS Relative Wall Thickness ratio 0.48 CV PACS FS 24 % CV PACS LV Mass 2D 193 g CV PACS Ascending Aorta Index 1.59 cm/m2 CV PACS RA 2D Volume Index 29 mL/m2 CV PACS LVIDD Index 1.92 cm/m2 CV PACS LVIDS Index 1.46 cm/m2 CV PACS E/A Ratio 0.7 CV PACS E/E' Ratio Lateral 10 CV PACS LV Systolic Volume Index (BP) 28 mL/m2 CV PACS LV Diastolic Volume Index (BP) 59 mL/m2 CV PACS LV Mass Index 2D 81 g/m2 CV PACS LV EDV Index (A2C) 57 mL/m2 CV PACS LV ESV Index (A2C) 25 mL/m2 CV PACS BSA 2.52 m2 CV PACS Right Ventricular Peak Systolic Pressure 28 mmHg CV PACS Est. RA Pressure 8 mmHg CV PACS Anatomical Region Laterality Modality Ultrasound Narrative 03/14/2024 3:04 PM EST ?Left ventricle cavity size is normal.Left ventricle mild hypertrophy. No regional LV wall motion abnormalities noted.Left ventricular systolic function is low normal with an ejection fraction of 50-55%. ?Right ventricle is enlarged. Right ventricular systolic function is normal. ?Tricuspid??Valve: There is mild regurgitation. Estimated RA pressure is 8 mmHg. The RVSP is estimated at 28 mmHg. Left Ventricle Left ventricle cavity size is normal. There is mild hypertrophy. Systolic function is low normal with an ejection fraction of 50-55%. There are no regional LV wall motion abnormalities. There is age appropriate left ventricular diastolic function. Right Ventricle Right ventricle cavity is dilated. Systolic function is normal. Left Atrium Left atrium cavity size is normal. Right Atrium Right atrium cavity is normal. IVC/SVC Inferior vena cava is dilated. Mitral Valve Mitral valve structure is normal. There is no regurgitation or stenosis. Tricuspid Valve The leaflets exhibit normal excursion. There is mild regurgitation. There is no evidence of tricuspid valve stenosis. Estimated RA pressure is 8 mmHg. The RVSP is estimated at 28 mmHg. Aortic Valve The aortic valve is trileaflet. There is trace regurgitation. There is no evidence of aortic valve stenosis. Pulmonic Valve Pulmonic valve structure is normal. There is no regurgitation or stenosis. Ascending Aorta The aorta appears normal in size. Pericardium Pericardium was not well visualized. There is no pericardial effusion. Study Details Overall the study quality was technically difficult. Definity contrast was given to enhance imaging. us Edmundo Scott MD CV ECHO PROCEDURES Final Result * Troponin I high sensitivity (03/14/2024 12:10 PM EST) Only the most recent of2 resultswithin the time period is included. Pathologist [facility] High Sensitivity Troponin I 10 <=79 ng/L LAB CHEMISTRY METHOD 03/14/2024 12:53 PM EST [facility] Blood Venous blood specimen / Unknown Venipuncture / Unknown 03/14/2024 12:10 PM EST 03/14/2024 12:22 PM EST Narrative [facility] - 03/14/2024 12:53 PM EST High levels of biotin in samples may falsely decrease hsTroponin values. ??Use caution when interpreting hsTroponin results in patients taking biotin who exhibit renal impairment (eGFR <60) or in patients taking more than 20 mg/day of biotin. us Elmer Cochran MD LAB BLOOD ORDERABLES Final Resu lt [facility] [address] [place] [address], [place] [phone] * XR Chest 2 Views (03/14/2024 11:50 AM EST) Anatomical Region Laterality Modality Body Radiographic Luanne ging 03/14/2024 12:0 2 PM EST Impressions 03/14/2024 12:11 PM EST FINDINGS/IMPRESSION: Lungs are clear. ??No pleural effusion or pneumothorax. ??Cardiac silhouette is normal in size. ??Degenerative changes seen throughout the bones. -------- FINAL REPORT -------- Dictated By: JEFFERSON BOSTON Dictated Date: 03/14/2024 12:02 ET Assigned Physician: JEFFERSON BOSTON Reviewed and Electronically Signed By: JEFFERSON BOSTON Signed Date: 03/14/2024 12:11 ET Workstation ID: [id number] Transcribed By: Self Edit Transcribed Date: 03/14/2024 12:02 ET Narrative 03/14/2024 12:11 PM EST XR CHEST 2 VIEWS INDICATION: ??Chest pain TECHNIQUE: XR CHEST 2 VIEWS COMPARISON: 06/18/2022 Procedure Note Jefferson Boston MD - 03/14/2024 XR CHEST 2 VIEWS INDICATION: Chest pain TECHNIQUE: XR CHEST 2 VIEWS COMPARISON: 06/18/2022 IMPRESSION: FINDINGS/IMPRESSION: Lungs are clear. No pleural effusion orpneumothorax. Cardiac silhouette is normal in size. Degenerative changesseen throughout the bones. -------- FINAL REPORT -------- Dictated By: JEFFERSON BOSTON Dictated Date: 03/14/2024 12:02 ET Assigned Physician: JEFFERSON BOSTON Reviewed and Electronically Signed By: JEFFERSON BOSTON Signed Date: 03/14/2024 12:11 ET Workstation ID: [id number] Transcribed By: Self Edit Transcribed Date: 03/14/2024 12:02 ET us Elmer Cochran MD IMG XR PROCEDURES Final Result * CT Angio Chest wo and/or w Contrast (03/14/2024 11:17 AM EST) Anatomical Region Laterality Modality Body Computed Tomogra phy 03/14/2024 11:3 2 AM EST Impressions 03/14/2024 11:38 AM EST No pulmonary arterial emboli. No acute findings in the chest. -------- FINAL REPORT -------- Dictated By: JEFFERSON BOSTON Dictated Date: 03/14/2024 11:32 ET Assigned Physician: JEFFERSON BOSTON Reviewed and Electronically Signed By: JEFFERSON BOSTON Signed Date: 03/14/2024 11:38 ET Workstation ID: [id number] Transcribed By: Self Edit Transcribed Date: 03/14/2024 11:32 ET Narrative 03/14/2024 11:38 AM EST PROCEDURE: Chest CTA INDICATION: Pulmonary embolism, palpitations TECHNIQUE: Chest CTA with intravenous administration of 100cc ISOVUE-370. Multi planar reformats were created and interpreted. The examination was performed utilizing dose reduction techniques.3-D or MIP images were produced with postprocessing on an independent computer workstation. ??Total DLP 860 COMPARISON: ??Same day radiograph FINDINGS: LUNGS/PLEURA: Central airways are patent. Lungs are clear. No pleural effusion or pneumothorax. MEDIASTINUM: No pulmonary arterial emboli. Thyroid gland is not visualized, likely surgically absent. No mediastinal or hilar lymphadenopathy. Cardiac chambers are normal in size. No pericardial effusion. ??Patulous esophagus. ??No significant coronary artery calcifications.. CHEST WALL: No axillary lymphadenopathy or superficial hematoma. ??Right gynecomastia. UPPER ABDOMEN:Sleeve gastrectomy. ??Left upper pole renal cyst. ??Hepatic steatosis. ??Splenomegaly BONES: No acute fracture. Scattered degenerative changes seen throughout the bones. ??Sclerosis along the right posterior 7th and left posterior 8th ribs, most likely related to old trauma or degenerative change. Procedure Note Jefferson Boston MD - 03/14/2024 PROCEDURE: Chest CTA INDICATION: Pulmonary embolism, palpitations TECHNIQUE: Chest CTA with intravenous administration of 100cc ISOVUE-370.Multi planar reformats were created and interpreted. The examination wasperformed utilizing dose reduction techniques.3-D or MIP images wereproduced with postprocessing on an independent computer workstation.Total DLP 860 COMPARISON: Same day radiograph FINDINGS: LUNGS/PLEURA: Central airways are patent. Lungs are clear. No pleuraleffusion or pneumothorax. MEDIASTINUM: No pulmonary arterial emboli. Thyroid gland is notvisualized, likely surgically absent. No mediastinal or hilarlymphadenopathy. Cardiac chambers are normal in size. No pericardialeffusion. Patulous esophagus. No significant coronary arterycalcifications.. CHEST WALL: No axillary lymphadenopathy or superficial hematoma. Rightgynecomastia. UPPER ABDOMEN:Sleeve gastrectomy. Left upper pole renal cyst. Hepaticsteatosis. Splenomegaly BONES: No acute fracture. Scattered degenerative changes seen throughoutthe bones. Sclerosis along the right posterior 7th and left posterior 8thribs, most likely related to old trauma or degenerative change. IMPRESSION: No pulmonary arterial emboli. No acute findings in the chest. -------- FINAL REPORT -------- Dictated By: JEFFERSON BOSTON Dictated Date: 03/14/2024 11:32 ET Assigned Physician: JEFFERSON BOSTON Reviewed and Electronically Signed By: JEFFERSON BOSTON Signed Date: 03/14/2024 11:38 ET Workstation ID: [id number] Transcribed By: Self Edit Transcribed Date: 03/14/2024 11:32 ET Elmer Cochran MD IM CT PROCEDURES Final Result * (ABNORMAL) CBC auto differential (03/14/2024 10:20 AM [facility]) Only the most recent of2 resultswithin the time period is included. [facility] Signature WBC 7.2 4.8 - 10.8 K/mcL LAB HEMETOLOGY METHOD 03/14/2024 10:58 AM [facility] RBC 6.00(H) 4.50 - 5.50 M/mcL LAB HEMETOLOGY METHOD 03/14/2024 10:58 AM [facility] Hemoglobin 15.4 13.5 - 17.5 g/dL LAB HEMETOLOGY METHOD 03/14/2024 10:58 AM [facility] Hematocrit 45.8 42.0 - 54.0 % LAB HEMETOLOGY METHOD 03/14/2024 10:58 AM [facility] MCV 75.8(L) 79.0 - 98.0 FL LAB HEMETOLOGY METHOD 03/14/2024 10:58 AM [facility] MCH 25.5(L) 27.0 - 32.0 pcg LAB HEMETOLOGY METHOD 03/14/2024 10:58 AM [facility] MCHC 33.6 32.0 - 37.0 g/dL LAB HEMETOLOGY METHOD 03/14/2024 10:58 AM [facility] RDW 14.6 11.0 - 15.0 % LAB HEMETOLOGY METHOD 03/14/2024 10:58 AM [facility] Platelets 250 130 - 400 K/mcL LAB HEMETOLOGY METHOD 03/14/2024 10:58 AM [facility] MPV 13.0(H) 7.0 - 11.0 FL LAB HEMETOLOGY METHOD 03/14/2024 10:58 AM [facility] NRBC 0.0 <1.0 % LAB HEMETOLOGY METHOD 03/14/2024 10:58 AM [facility] NRBC Absolute 0.00 <0.10 K/mcL LAB HEMETOLOGY METHOD 03/14/2024 10:58 AM [facility] Neutrophils Relative 57.3 % LAB HEMETOLOGY METHOD 03/14/2024 10:58 AM [facility] Lymphocytes Relative 30.5 % LAB HEMETOLOGY METHOD 03/14/2024 10:58 AM [facility] Monocytes Relative 9.0 % LAB HEMETOLOGY METHOD 03/14/2024 10:58 AM [facility] Eosinophils Relative 2.2 % LAB HEMETOLOGY METHOD 03/14/2024 10:58 AM [facility] Basophils Relative 0.4 % LAB HEMETOLOGY METHOD 03/14/2024 10:58 AM [facility] Immature Granulocytes Relative 0.6 % LAB HEMETOLOGY METHOD 03/14/2024 10:58 AM [facility] Neutrophils Absolute 4.14 1.50 - 7.00 K/mcL LAB HEMETOLOGY METHOD 03/14/2024 10:58 AM [facility] Lymphocytes Absolute 2.20 1.00 - 5.00 K/mcL LAB HEMETOLOGY METHOD 03/14/2024 10:58 AM [facility] Monocytes Absolute 0.65 0.20 - 1.00 K/mcL LAB HEMETOLOGY METHOD 03/14/2024 10:58 AM [facility] Eosinophils Absolute 0.16 0.00 - 0.50 K/mcL LAB HEMETOLOGY METHOD 03/14/2024 10:58 AM [facility] Basophils Absolute 0.03 0.00 - 0.20 K/mcL LAB HEMETOLOGY METHOD 03/14/2024 10:58 AM [facility] Immature Granulocytes Absolute 0.04(H) 0.00 - 0.03 K/mcL LAB HEMETOLOGY METHOD 03/14/2024 10:58 AM [facility] Blood Venous blood specimen / Unknown Venipuncture / Unknown 03/14/2024 10:20 AM EST 03/14/2024 10:49 AM EST us Elmer Cochran MD LAB BLOOD ORDERABLES Final Resu lt Performing Organization Address City/[facility]/ZIP Co de Phone Number [facility] [address] [place] [address], [place] [phone] * APTT (03/14/2024 10:20 AM EST) aPTT 36.3 24.1 - 39.3 sec LAB COAGULATION METHOD 03/14/2024 11:02 AM EST [facility] Blood Venous blood specimen / Unknown Venipuncture / Unknown 03/14/2024 10:20 AM EST 03/14/2024 10:49 AM EST us Elmer Cochran MD LAB BLOOD ORDERABLES Final Resu lt Performing Organization Address [facility]/ZIP Co de Phone Number [facility] [address] [place] [address], [place] [phone] * Prothrombin time with INR (03/14/2024 10:20 AM EST) Protime 11.5 10.6 - 13.9 sec LAB COAGULATION METHOD 03/14/2024 11:02 AM EST [facility] INR 0.9 LAB COAGULATION METHOD 03/14/2024 11:02 AM EST [facility] Blood Venous blood specimen / Unknown Venipuncture / Unknown 03/14/2024 10:20 AM EST 03/14/2024 10:49 AM EST us Elmer Cochran MD LAB BLOOD ORDERABLES Final Resu lt Performing Organization Address City/[facility]/ZIP Co de Phone Number [facility] [address] [place] [address], * (ABNORMAL) B-type natriuretic peptide (03/14/2024 10:20 AM EST) [facility] BNP 178(H) <=100 pcg/mL LAB CHEMISTRY METHOD 03/14/2024 11:23 AM EST [facility] Blood Venous blood specimen / Unknown Venipuncture / Unknown 03/14/2024 10:20 AM EST 03/14/2024 10:49 AM EST us Elmer Cochran MD LAB BLOOD ORDERABLES Final Resu lt Performing Organization Address City/[facility]/ZIP Co de Phone Number [facility] [address] [place] [address], * Lipase (03/14/2024 10:20 AM EST) [facility] Lipase 50 13 - 75 unit/L LAB CHEMISTRY METHOD 03/14/2024 11:21 AM EST [facility] Blood Venous blood specimen / Unknown Venipuncture / Unknown 03/14/2024 10:20 AM EST 03/14/2024 10:49 AM EST us Elmer Cochran MD LAB BLOOD ORDERABLES Final Resu lt Performing Organization Address [facility]/ZIP Co de Phone Number [facility] [address] [place] [address], * ECG-Annotated (03/14/2024) Bharathi Thornton MD ECG ORDERABLES Final Result * Vitamin D 25 hydroxy (03/01/2024 9:00 AM EST) [facility] Vit D, 25-Hydroxy 49.8 30.0 - 80.0 ng/mL LAB CHEMISTRY METHOD 03/01/2024 10:27 AM EST [facility] Blood Venous blood specimen / Unknown Venipuncture / Unknown 03/01/2024 9:00 AM EST 03/01/2024 9:36 AM EST us Brie Lynn MD LAB BLOOD ORDERABLES Fi nal Result [facility] [address] [place] [address], [place] [phone] * Vitamin B12 (03/01/2024 9:00 AM EST) [facility] Vitamin B-12 390 250 - 900 pcg/mL LAB CHEMISTRY METHOD 03/01/2024 10:41 AM EST [facility] Blood Venous blood specimen / Unknown Venipuncture / Unknown 03/01/2024 9:00 AM EST 03/01/2024 9:36 AM EST us Brie Lynn MD LAB BLOOD ORDERABLES Fi nal Result Performing Organization Address City/[facility]/ZIP Co de Phone Number [facility] [address] [place] [address], [place] [phone] * Lipid panel with reflex to direct LDL (12/13/2023 8:54 AM EST) [facility] Cholesterol 174 0 - 200 mg/dL LAB CHEMISTRY METHOD 12/13/2023 9:54 AM EST [facility] Triglycerides 99 0 - 150 mg/dL LAB CHEMISTRY METHOD 12/13/2023 9:54 AM EST [facility] HDL 75 >=40 mg/dL LAB CHEMISTRY METHOD 12/13/2023 9:54 AM EST [facility] LDL Calculated 79 0 - 100 mg/dL LAB CHEMISTRY METHOD 12/13/2023 9:54 AM EST [facility] VLDL Cholesterol Fco 19.8 mg/dL LAB CHEMISTRY METHOD 12/13/2023 9:54 AM EST [facility] Non HDL Chol. (LDL+VLDL) 99 <145 mg/dL LAB CHEMISTRY METHOD 12/13/2023 9:54 AM EST [facility] Chol/HDL Ratio 2.3 0.0 - 4.4 LAB CHEMISTRY METHOD 12/13/2023 9:54 AM EST [facility] Blood Venous blood specimen / Unknown Venipuncture / Unknown 12/13/2023 8:54 AM EST 12/13/2023 9:54 AM EST us Siena Cha MD LAB BLOOD ORDERABLES Final Re sult [facility] [address] [place] [address], from Last 3 Months or Most Recently Relevant to Health Maintenance Insurance [facility] MEDICARE Member Subscriber Plan / Payer (Ef fective 2015-Present) Name:CulverRogelio III Relation to Subscriber:Self Name:Palomo Rogelio Win III Payer ID:[id number] Group ID:[id number] Type:Not on file Address: [place] [address] [address] [id number] Advance Directives Documents on File Type Date Recorded 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 Do not modify or discontinue any currently active code status orders. * Full Code - Default Date Activated Date Inactivated Comments 03/14/2024 2:46 PM 03/14/2024 3:12 PM This is order is used when code status has not been discussed with the patient, or code status is otherwise unknown/unconfirmed To update the patient's code status, place a code status order. Do not modify or discontinue any currently active code status orders. Healthcare Agents on File Name Relationship Healthcare Agent Relationship Communication Radha (Fiance) Damian Spouse Health Care Agent Care Teams Regulatory Affairs Coordinator Relationship Specialty Start Date End Date Siena Cha MD [address] [facility] [address] [place], [place] PCP - General 05/16/14
--- OUTSIDE RECORDS SUMMARY | 2024-05-12 09:48 | XMS_ITS | Clinical Summary ---
Author Organization [facility] Address [address] [place] [phone] Phone Care Team Providers Care Leather Tacker Name Role Phone Odilon Cha MD Primary Care Provider Unavail able Allergies Active Allergy Reactions Criticality Noted Date Comments Ryder Inhibitors 10/21/2020 Acetaminophen 10/21/2020 Hydrocodone 10/21/2020 Hydrocodone-Acetaminophen 10/21/2020 Canagliflozin 10/21/2020 Metformin 10/21/2020 Medications Tiotropium [place]-Olodaterol 2.5-2.5 MCG/ACT aerosol solution Stiolto Respimat 2.5 mcg-2.5 mcg/actuation solution for inhalation Active albuterol (2.5 MG/3ML) 0.083% nebulizer solution albuterol sulfate 2.5 mg/3 mL (0.083 %) solution for nebulization USE 3 ML VIA NEBULIZER EVERY 8 HOURS NEEDED FOR SHORTNESS OF BREATH OR WHEEZING Active allopurinol (ZYLOPRIM) 300 MG tablet allopurinol 300 mg tablet TAKE 1 TABLET BY MOUTH DAILY Active aspirin 325 MG EC tablet aspirin 325 mg tablet,delayed release TAKE 1 TABLET BY MOUTH EVERY DAY Active Empagliflozin (Jardiance) 10 MG tablet Jardiance 10 mg tablet TAKE 1 TABLET BY MOUTH EVERY DAY IN THE MORNING Active fluticasone HFA (Flovent HFA) 110 MCG/ACT inhaler Flovent HFA 110 mcg/actuation aerosol inhaler INHALE 2 PUFFS TWICE DAILY Active furosemide (LASIX) 40 MG tablet furosemide 40 mg tablet TAKE 1 TABLET BY MOUTH EVERY DAY Active Glycopyrrolate-Formote rol (Bevespi Aerosphere) 9-4.8 MCG/ACT aerosol Bevespi Aerosphere 9 mcg-4.8 mcg HFA aerosol inhaler Active loratadine (CLARITIN) 10 MG tablet loratadine 10 mg tablet TAKE 1 TABLET BY MOUTH DAILY Active nitroglycerin (NITROSTAT) 0.3 MG SL tablet nitroglycerin 0.3 mg sublingual tablet DISSOLVE 1 TABLET UNDER THE TONGUE NEEDED FOR CHEST PAIN MAX 3 TABLETS PER DAY Active Vilazodone HCl (Viibryd) 10 MG tablet Viibryd 10 mg tablet TAKE 1 TABLET BY MOUTH EVERY DAY Active SITagliptin (JANUVIA) 100 MG tablet Januvia 100 mg tablet TAKE 1 TABLET BY MOUTH DAILY Active ALBUTEROL SULFATE HFA IN Inhale Active losartan (COZAAR) 100 MG tablet Take 100 mg by mouth 1 (one) time each day Active potassium chloride (KLOR-CON M20) 20 MEQ CR tablet Take 1 tablet (20 mEq total) by mouth 1 (one) time each day 022 Active traMADol (ULTRAM) 50 MG tablet Take 50 mg by mouth every 6 (six) hours if needed for moderate pain Active amLODIPine (NORVASC) 5 MG tablet Take 5 mg by mouth 1 (one) time each day Active isosorbide mononitrate (IMDUR) 30 MG 24 hr tablet Take 30 mg by mouth 1 (one) time each day Do not crush or chew. Active acetaminophen (TYLENOL 8 HOUR) 650 MG 8 hr tablet Take 650 mg by mouth every 8 (eight) hours if needed for mild pain Do not crush, chew, or split. 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 135 tablet 1 024 2024 Active cholecalciferol (VITAMIN D-3) 50 MCG (1999 UT) capsuleIndications:Chr onic kidney disease, stage 2 (mild),Hypertension,Vi tamin D deficiency, not otherwise specified,Secondary hyperparathyroidism of renal origin (HCC) Take 1 capsule (2,000 Units total) by mouth 1 (one) time each day 90 capsule 3 024 2024 Active Active Problems Problem Noted Date Diagnosed Date Secondary hyperparathyroidism of renal origin Vitamin D deficiency, not otherwise specified Type 2 diabetes mellitus with diabetic nephropat hy 10/28/2020 Hypertensive renal disease 10/28/2020 Hypertension 10/28/2020 Stage 3a chronic kidney disease 10/28/2020 Edema 09/23/2020 Pain in toe 06/03/2016 Onychomycosis 02/06/2016 Type 2 diabetes mellitus 02/06/2016 Chronic kidney disease 04/02/2011 Edema of lower extremity 04/02/2011 Essential hypertension 04/02/2011 Gout 04/02/2011 History of laparoscopic adjustable gastric yanna ng 04/02/2011 Hyperlipidemia 04/02/2011 Overview (10/23/2020): IMO update Hypothyroidism 04/02/2011 Morbid obesity 04/02/2011 Obstructive sleep apnea 04/02/2011 Type 2 diabetes mellitus 04/02/2011 Immunizations Name Administration Dates Next Due Influenza, Quadrivalent, With Preservative 12/15 Family History Medical History Relation Comments Cancer Maternal Grandfather Cancer Maternal Grandmother Diabetes Mother Kidney disease Mother Relation Status Comments Maternal Grandfather Maternal Grandmother Mother Social History Tobacco Use Types Packs/Day Years Used Date Smoking Tobacco: Never Smokeless Tobacco: Never Tobacco Cessation:Counseling Given: Not Answered Alcohol Use Standard Drinks/Week Comments Yes 0 (1 standard drink = 0.6 oz pur e alcohol) Sex and Gender Information Value Date Recorded Sex Assigned at Not on file Legal Sex Male 5:13 PM EST Gender Identity Not on file Sexual Orientation Not on file Last Filed Vital Signs Vital Sign Reading Time Taken Comments Blood Pressure 120/80 01/31/2024 12:46 PM EST Pulse 74 01/31/2024 12:46 PM EST Temperature - - Respiratory Rate - - Oxygen Saturation - - Inhaled Oxygen Concentration - - Weight 138 kg (304 lb) 01/31/2024 12:46 PM EST Height - - Body Mass Index - - Plan of Treatment Upcoming Encounters Date Type Department Care Team ([facility] st Contact Info) Description 01/30/2025 8:00 AM EST Office Visit [facility] [address] [facility] [address] [place] [address] Shaila Flores ARNP [address] [address] Health Maintenance Due Date Last Done Comments Pneumococcal Vaccine: Pediatrics (0 to 5 Years) and At-Risk Patients (6 to 64 Years) (1 of 2 - PCV) 06/09/1966 Colorectal Cancer Screening: Annual FOBT 06/09/2008 Colorectal Cancer Screening: Colonoscopy 06/09/2008 Colorectal Cancer Screening: Sigmoidoscopy 06/09/2008 Diabetes: Ophthalmology Exam 09/27/2020 Diabetes: Pedal Pulse Checked 09/27/2020 Diabetes: Sensory Foot Exam 09/27/2020 Diabetes: Visual Foot Exam 09/27/2020 Influenza Vaccine (#1) 2023 12/16/2015 Diabetes: Hemoglobin A1C 03/14/2024 024, 12/10/2021, 10/28/2020 Hepatitis B Vaccine Aged Out No longe r eligible based on patient's age to complete this topic Procedures Procedure Name Priority Date/Time Associated Diagnosis Comments HEMOGLOBIN A1C Routine 12/10/2021 9:55 AM EDT Type 2 diabetes mellitus with diabetic nephropathy (HCC) Stage 3a chronic kidney disease (HCC) Essential (primary) hypertension Hypertensive renal disease Secondary hyperparathyroidism of renal origin (HCC) from Last 3 Months or Most Recently Relevant to Health Maintenance Results * (ABNORMAL) Hemoglobin A1c (12/10/2021 9:55 AM EDT) Hemoglobin A1C 7.9(H) (4.0-5.6) % [employer] Comment: MONITORING: In known diabetic patients, hemoglobin A1c targets should be discussed with health care provider. DIAGNOSTIC USE: ??The [place] Diabetes Association (ADA) and the World Health Organization (WHO) recommend the use of HbA1c to diagnose diabetes using a threshold of 6.5%. Patients who have an HbA1c between 5.7% and 6.4% are considered at increased risk for developing diabetes in the future. CAUTION: Falsely low HbA1c results may be observed in patients with hemolytic anemia, homozygous forms of abnormal hemoglobin (e.g. SS, CC, SC), , recent blood loss or hemoglobin F greater than 7%. Fructosamine may be used as an alternate test in these cases. REFERENCE: ADA: Standards of Medical Care in Diabetes 2020, The Journal of Clinical and Applied Research and Education Volume 43, Supplement 1 Testing performed or reported by [facility], a Service of [facility], [address] [place] [id number] Santos Long MD, Sheep Sticker [facility]# [id number] Blood (Blood, Venous) 12/10/2021 9:55 AM EDT 12/10/2021 10:03 AM EDT us Miles Bojorquez MD LAB BLOOD ORDERABLES Fernanda may Result [employer] from Last 3 Months or Most Recently Relevant to Health Maintenance Insurance [id number] [id number] [facility] ([id number]) [place]ADIJAH [place]UNKETT [id number] [facility] ([id number]) Care Teams Leather Tacker Relationship Specialty Start Date End Date Odilon Cha MD [address] [place] [address] [place] [address] PCP - General Neurology 09/18/20
== END 2024-05-12 10:06 | disposition home or self-care (01) ==
LOC: HO.PMC 09:08
PROVIDERS: PCP Internal Medicine; Visit Provider Internal Medicine
DX: M17.0 Bilateral primary osteoarthritis of knee (principal)
CPT/HCPCS: 20610

== ENCOUNTER → 2024-05-12 09:07 | Outpatient (BNVA) | payer OTHER, SELFPAY | PROVIDERS: PCP Internal Medicine; Visit Provider Internal Medicine | DX: M17.0 Bilateral primary osteoarthritis of knee (principal) | CPT/HCPCS: 20610 ==

== ENCOUNTER 2024-07-20 06:17 | Outpatient (REF) | payer OTHER, SELFPAY ==
--- NOTE | ~2024-07-20 | FL_ITS ---
EXAMINATION: FL GUIDANCE ONLY HISTORY: M47.816 - Spondylosis without myelopathy or radiculopathy, lumbar region COMPARISON: None available. TECHNIQUE: Fluoroscopy time: 0.7 minutes. Cumulative Dose: 58.0 mGy. DAP: 0.311 mGym2 Images: 1. FINDINGS: A single fluoroscopic spot film demonstrates [address] FL/FL guidance in treatment room IMPRESSION: Fluoroscopy during procedure. Please see procedure report for additional information. Electronically signed by: Francisco J Rodriguez MD 07/20/2024 03:08 PM EDT
--- OUTSIDE RECORDS SUMMARY | 2024-07-20 06:19 | XMS_ITS | Encounter Summary ---
Author Organization [facility] Address [address] [place] [address] Care Team Providers Care Cdl Truck Driver Name Role Phone Siena Cha MD Primary Care Provider [phone] Reason for Visit * Reason Comments Follow-up 1 Year FOLLOW UP Encounter Details Date Type Department Care Team (Late st Contact Info) Description 07/18/2024 9:15 AM EDT Office Visit Bariatric Surgery - [place] [address] [facility] [address] [place] [address] Brie yLnn MD [address] [facility] [address] [place] [address] Class 3 severe obesity with body mass index (BMI) of 45.0 to 49.9 in adult (CMS/HCC V24, CMS/HCC V28) (Primary Dx); Obstructive sleep apnea; Atrial flutter, unspecified type (CMS/HCC V24, CMS/HCC V28); Weight gain Social History Tobacco Use Types Packs/Day Years [...] on file Sexual Orientation Not on file documented as of this encounter Last Filed Vital Signs Vital Sign Reading Time Taken Comments Blood Pressure 130/84 07/18/2024 9:15 AM EDT Pulse 70 07/18/2024 9:15 AM EDT Temperature 36.6 ??C (97.9 ??F) 07/18/2024 9:15 AM ED T Respiratory Rate - - Oxygen Saturation - - Inhaled Oxygen Concentration - - Weight 141 kg (311 lb) 07/18/2024 9:15 AM EDT Height 170.2 cm (5' 7 ) 07/18/2024 9:15 AM EDT Body Mass Index 48.71 07/18/2024 9:15 AM EDT documented in this encounter Functional Status * Are you deaf or do you have serious difficulty hearing? Answer Date of Assessment Author No 03/14/2024 10:25 AM Jesse Lauren RN * Are you blind or do you have serious difficulty seeing, even when wearing glasses? Answer Date of Assessment Author No 03/14/2024 10:25 AM Jesse Lauren RN * Do you have serious difficulty walking or climbing stairs? Answer Date of Assessment Author No 03/14/2024 10:25 AM Jesse Lauren RN * Do you have serious difficulty dressing or bathing? Answer Date of Assessment Author No 03/14/2024 10:25 AM Jesse Lauren RN * Because of a physical, mental, or emotional condition, do you have serious difficulty doing errandsalone such as visiting the doctor? Answer Date of Assessment Author No 03/14/2024 10:25 AM Jesse Lauren RN documented as of this encounter Mental Status * Because of a physical, mental, or emotional condition, do you have serious difficulty concentrating, remembering, or making decisions? (5 years old or older) Answer Entry Date Author No 03/14/2024 10:25 AM Jesse Lauren RN documented in this encounter Progress Notes * Brie Lynn MD - 07/18/2024 9:15 AM EDT [place] presents for follow up of sleeve gastrectomy on 06/29/2022. Last seen a year ago. Comorbidities: -A-fib. On xarelto -DM: A1C 6.5, 3 months ago. On jenuvia and jardiance No PPI needed , no reflux. Diet: no reflux, still feels a restriction Fluid intake: 64 oz MVI: DEREK Exercise: limited due to severe pain in hips and knees. This is scheduled for nerve ablation in the back Weight change since preop: 371-311=-60 lbs Weight change since last visit: 295-311=+16 lbs 293 lbs was min Vitals: 07/18/24 0915 BP: 130/84 BP Location: Left arm Patient Position: Sitting BP Cuff Size: Large adult long Pulse: 70 Temp: 36.6 ??C (97.9 ??F) TempSrc: Temporal Weight: 141 kg (311 lb) Height: 1.702 m (67 ) A/P: 63M two year s/p lap sleeve. Goal weight loss at 1 year repair MBSAQIP was 102 pounds. He has regained some weight due to limited physical activity. he is scheduled for nerve ablation joi few days, hopefully after this will be able to be more active to keep the weight off. Discussed importance of lifelong diet and exercise. He is up to date on labs. Last done in June. Not for a year. We also discussed option of pharmacological treatment. Will refer to Dr. Vieira for treatment to stave off additional weight gain Continue CPAP for MICHI Continue xarelto For now continue jardiance and jenuvia. May need dose adjustment if starts a GLP1 agonist medication. documented in this encounter Plan of Treatment Upcoming Encounters Date Type Department Care Team (Late st Contact Info) Description 08/17/2024 8:10 AM EDT Office Visit [facility] [address] [place] [phone] John Mcconnell NP [address] [place] [address] [address] [place] [address] 09/22/2024 12:30 PM EDT Office Visit Bariatric Surgery [facility] [address] [facility] [address] [place] [phone] Brie Lynn MD [address] [facility] [address] [place] [address] 11/07/2024 2:00 PM EDT Office Visit Bariatric Surgery [facility] [address] [facility] [address] [place] [address] Fang Vieira MD [address] [facility] [address] [place], [place] [phone] documented as of this encounter Visit Diagnoses Diagnosis Class 3 severe obesity with body mass index (BMI) of 45.0 to 49.9 in adult ([facility] V24, [facility] V28)- Primary Obstructive sleep apnea Obstructive sleep apnea (adult) (pediatric) Atrial flutter, unspecified type (CMS/[facility] V24, [facility] V28) Weight gain Other symptoms concerning nutrition, metabolism, and development documented in this encounter Discontinued Medications Medication Sig Discontinue Reason Start Date End Da te pantoprazole (PROTONIX) 40 mg EC tablet Take 1 tablet (40 mg total) by mouth 1 (one) time each day before breakfast. 09/14/2022 07/18/2024 documented as of this encounter Care Teams Cdl Truck Driver Relationship Specialty Start Date End Date Siena Cha MD [address] [facility] [address] [place], [place] PCP - General 05/16/14 documented as of this encounter
== END 2024-07-20 06:18 | disposition home or self-care (01) ==
LOC: CF 06:17
PROVIDERS: Visit Provider Internal Medicine
DX: M47.816 Spondylosis without myelopathy or radiculopathy, lumbar region (principal)
CPT/HCPCS: 64635; 64636; J2003

== ENCOUNTER 2024-07-20 10:11 | Outpatient (AMB) | payer OTHER, SELFPAY ==
--- NOTE | 2024-07-20 10:16 | MHC.OFFVIS ---
Vital Signs 07/20/24 10:19 07/20/24 12:02 BP 139/87 153/82 H Blood Pressure Location Lt brachial Lt brachial Position Sitting Sitting Respiration 18 18 Pulse 75 75 Pulse Source Pulse Oximeter Pulse Oximeter Pulse Oximetry (%) 97 96 Oxygen Delivery Method Room Air Room Air Intake Visit Reasons: Luis L4-L5 RFA/ valium & oxy Allergies hydrocodone (From VICODIN) Allergy (Severe, Verified 07/31/24 10:14) ANGIOEDEMA metformin (METFORMIN) Allergy (Intermediate, Verified 07/31/24 10:14) ITCHING/HEADACHE, rash HPI HPI Luis L4-L5 RFA/ valium & oxy: Details: Patient presents for scheduled procedure. Denies any recent cough, cold, infection, fever or other significant changes in medical history since last office visit. [facility] Medical History (Updated 01/12/24 @ 12:39 by Yony Mena MD) Pre-op chest exam Hypothyroidism, postablative Arthritis GERD (gastroesophageal reflux disease) Type 2 diabetes mellitus Glaucoma Asthma Anxiety Gout Depression Graves disease Super obesity Obstructive sleep apnea COPD (chronic obstructive pulmonary disease) Surgical History (Updated 06/12/21 @ 13:55 by Janeth Kunz PA-C) History of cardiac cath (~2015) History of eye surgery (~1997) History of umbilical hernia repair (~1997) History of laparoscopic adjustable gastric banding (~2006) History of Achilles tendon repair History of removal of laparoscopic gastric banding device (~2019) Family History Father No problems noted. Mother COPD (chronic obstructive pulmonary disease) Asthma Brother No problems noted. Brother No problems noted. Sister No problems noted. Daughter No problems noted. Daughter No problems noted. Daughter No problems noted. Social History Alcohol intake: former Patient Tobacco Use Status: Never used Tobacco Substance Use Type: Former Substance User Physical Exam Vital Signs: Last Vital Signs Pulse 75 07/20/24 12:02 Resp 18 07/20/24 12:02 BP 153/82 H 07/20/24 12:02 Pulse Ox 96 07/20/24 12:02 Oxygen Delivery Method Room Air 07/20/24 12:02 Office Procedures Details: Radiofrequency lesioning medial branch nerves, L3 and L4 medial branches, bilateral After obtaining written consent, pre-procedure blood pressure and heart rate were stable and recorded in the nursing record. The patient was placed in the prone position. The lumbar area was prepped with chloraprep and draped in sterile fashion. The skin over the target for each medial branch nerve was anesthetized with 0.5% lidocaine. An 18 gauge 150 mm [employer] Trident radiofrequency hybrid cannula-probe was advanced to each target site under fluoroscopic guidance. No paresthesias were elicited with needle placement and aspiration was negative for heme and CSF. Impedences were verified under 600 ohms. Motor testing (2 Hz) confirmed needle placement at each site within the appropriate voltage thresholds. Each site was injected with 0.5 ml 2% preservative-free lidocaine. Radiofrequency lesioning was performed for 90 seconds at 80 deg Celcius. Each site was then injected with 0.5ml 0.5% ropivacaine. The needle was removed, skin cleansed and a sterile bandage was applied. The patient tolerated the procedure well and no complications were encountered. Following the procedure the patient's vital signs were stable. The patient was discharged home in good condition with post-procedural instructions. Time Out: Immediately prior to the procedure, the following was verbally confirmed that there is a signed consent form and that the correct patient, planned procedure, site and side are consistent with documentation and that necessary equipment and/or blood products are available prior to the start of the case. Complications: none EBL: <5 cc 82159 - RFA Lumbar Medial Branches (bilateral) 19325 - Lumbar Medial Branches ADDNL Procedure code (CPT) selection complete Assessment & Plan Assessment & Plan (1) Lumbar spondylosis: Code(s): M47.816 - Spondylosis without myelopathy or radiculopathy, lumbar region Category: Medical Plan Patient is status post bilateral L3 & L4 medial branch RFA. Patient tolerated procedure well and was discharged home in stable condition with discharge instructions. All questions were answered. We will follow-up via telephone or in clinic to assess response to therapy. A follow-up appointment was made during today's visit. Orders: Orders FL guidance in treatment room 07/20/24 M47.816 - Spondylosis without myelopathy or radiculopathy, lumbar region Medications: New diazepam (Valium) please take 30minutes prior to arrival for procedure 5 mg PO ONCE PRN 1 tab 0RF sleep Coding Level of Care Code Procedure Only Diagnoses Lumbar spondylosis M47.816 CPT Codes Radiofrequency Ablation - Rad-Ablation 3: 57234 - RFA Lumbar Medial Branches ([id number]) Radiofrequency Ablation - Rad-Ablation 4: 63100 - Lumbar Medial Branches ADDNL ([id number])
[2024-07-20 10:19] VITALS: BP 139/87; PULSE 75; RESP 18; O2SAT 97
[2024-07-20 12:02] VITALS: BP 153/82; PULSE 75; RESP 18; O2SAT 96
== END 2024-07-20 12:21 | disposition home or self-care (01) ==
LOC: HO.PMCPRC 10:11
PROVIDERS: PCP Internal Medicine; Visit Provider Internal Medicine
DX: M47.816 Spondylosis without myelopathy or radiculopathy, lumbar region (principal)
CPT/HCPCS: 64635; 64636

== ENCOUNTER 2024-07-26 09:57 | Outpatient (AMB) | payer OTHER, SELFPAY ==
[2024-07-26 10:25] VITALS: BP 146/80; PULSE 73; O2SAT 95; BMI 49.0
--- NOTE | 2024-07-26 10:25 | A.OFFVIS_ITS ---
Vital Signs 07/26/24 10:25 Height 5 ft 7 in Weight 313 lb 0.902 oz BMI 49.0 BP 146/80 H Blood Pressure Location Lt brachial Position Sitting Pulse 73 Pulse Source Pulse Oximeter Pulse Oximetry (%) 95 Oxygen Delivery Method Room Air Intake Visit Reasons: cuauhtemoc Clerk To Justice Required: No Accompanied by: Self / Same As Patient Allergies hydrocodone (From VICODIN) Allergy (Severe, Verified 07/26/24 10:28) ANGIOEDEMA metformin (METFORMIN) Allergy (Intermediate, Verified 07/26/24 10:28) ITCHING/HEADACHE, rash HPI Comments Details: The patient is a 64-year-old gentleman known history of obstructive sleep apnea and obstructive airway disease. Still having issues shortness of breath. Moderate severity. He did have pulmonary function studies done recently at [facility] which we reviewed. It demonstrated that he does have a reversible obstruction consistent with significant asthma. The patient has significant small airways disease related to that. He also has restrictive lung disease related to his body habitus. He has issues with his knees in other arthritic he is and also morbid obesity and make it hard for him to exercise on a regular basis. He has been using CPAP. The CPAP therapy has been affecting beneficial. 02/17/2022 the patient is here for a pulmonary follow-up visit. The patient is doing extremely well. He is very happy about his new APAP. currently set 10- 13 with a ramp of 6. Sometimes he feels like the ramp is too low. I did in crease it to 8. I also talked about a turned off. His AHI is down to 0.5 on the current settings. He does use it for about 8 hours a night. The therapy has been extremely affecting beneficial for him. He does use a fullface mask which is also very comfortable for him. The patient also has been able to lose about 40 lb. He is working closely with the dietitian in the weight management program at [facility]. The patient is hoping to undergo bariatric surgery in the coming weeks. Continues uses respiratory therapy. He has not had any exacerbations. And he is not using using short-acting beta agonist often. Typically less than twice a week. Otherwise the patient is doing very well from a respiratory status. current patient is doing well and may proceed with surgery and anesthesia at this time. 09/24/2022 the patient is here for a pulmonary follow-up visit. The patient is doing well. He did undergo bariatric surgery. He has already lost 50 lb. He has been careful with this weight loss. The patient has a hard time walking to this knee discomfort. Still he needs to continue exercising to maintain muscle tightness [place]. The patient has been using his CPAP. CPAP therapy continues to be affecting beneficial. He naps during the daytime and also sleeps at nighttime with it. His AHI is down to less than 1 which is reassuring. The machine is set up currently APAP 8-13. Will go ahead increase it slightly to 14 cm maximum. His respiratory therapy continues to be well. Currently on the Breztri inhaler twice a day. This has been affecting beneficial. He also uses albuterol but typically less than 2 times a week. No imaging studies to review. At this point the patient is doing well so therefore follow-up some point next year. 07/20/2023 the patient is here for a pulmonary follow-up visit. The patient is doing very well. He is lost 90 lb after his bariatric surgery. He has been using the APAP. The APAP therapy has been affecting beneficial his AHI is 0.6. Will go ahead and decrease the pressures to 8-14 with a ramp of 7. Continues use a fullface mask. Asthma has been in good control. Continues on the breasts. Has not had any flare-ups has not required any prednisone. The patient is having issues with arthritis. Otherwise patient is doing well. Continue with current respiratory therapy and APAP therapy will follow-up in a year's time or sooner if he develops any issues. 07/26/2024 the patient is here for pulmonary follow-up visit. Overall the patient continues to do well. He is going to be following up closely with weight management to see about any additional weight loss opportunities. He is still having issues with his musculoskeletal issues. From a respiratory status he seems to be doing well on the current respiratory regimen. Has not had to use his rescue inhaler often. At this point he had run out and 90 to send refills in order for him to have rescue medication available in case that he needs it. In addition to that he continues on the CPAP. CPAP therapy continues to be affecting beneficial. We did give it the ramp since he sometimes feels like it is not getting enough pressure. If he thinks he needs additional pressures we can always call and I can increase the pressures at that point. Otherwise patient is doing good will plan to follow-up sometime in the spring. If any issues arise the patient will call for further an earlier assessment. [facility] Medical History (Updated 01/12/24 @ 12:39 by Yony Mena MD) Pre-op chest exam Hypothyroidism, postablative Arthritis GERD (gastroesophageal reflux disease) Type 2 diabetes mellitus Glaucoma Asthma Anxiety Gout Depression Graves disease Super obesity Obstructive sleep apnea COPD (chronic obstructive pulmonary disease) Surgical History (Updated 06/12/21 @ 13:55 by Janeth Kunz PA-C) History of cardiac cath (~2015) History of eye surgery (~1997) History of umbilical hernia repair (~1997) History of laparoscopic adjustable gastric banding (~2006) History of Achilles tendon repair History of removal of laparoscopic gastric banding device (~2019) Family History Father No problems noted. Mother COPD (chronic obstructive pulmonary disease) Asthma Brother No problems noted. Brother No problems noted. Sister No problems noted. Daughter No problems noted. Daughter No problems noted. Daughter No problems noted. Social History Alcohol intake: former Patient Tobacco Use Status: Never used Tobacco Substance Use Type: Former Substance User Review of Systems Const Denies daytime sleepiness, Denies difficulty sleeping, Denies fatigue, Denies night sweats, Denies stops breathing during sleep and Reports weight loss Eyes Denies change in vision ENT Denies change in voice, Denies lip swelling, Denies mouth pain, Reports nasal congestion, Reports nasal discharge and Denies tongue swelling Card Denies chest pain and Reports dyspnea on exertion Resp Denies cough and Reports dyspnea on exertion GI Denies abdominal pain, Reports dyspepsia and Reports heartburn Musc Reports back pain, Reports myalgias, Reports arthralgias and Reports limited range of motion Neuro Denies Neuro-related abnormal movements Psych Denies no additional complaints Endo Denies fatigue Antwon/Lymph Denies easy bleeding and Denies lymphadenopathy Aller/Immun Denies lip swelling and Denies tongue swelling Physical Exam Vital Signs: Last Vital Signs Pulse 73 07/26/24 10:25 BP 146/80 H 07/26/24 10:25 Pulse Ox 95 07/26/24 10:25 Oxygen Delivery Method Room Air 07/26/24 10:25 BMI result Body Mass Index 49.0 Const General: alert Neck Neck: Yes normal visual inspection, Yes full ROM and Yes no lymphadenopathy Chest Chest palpation & inspection: normal inspection of the chest Resp Effort & Inspection: normal respiratory effort Auscultation: diminished lung sounds Cardio Rate: regular rate Rhythm: regular rhythm Heart sounds: S1 normal heart sound present and S2 normal heart sound present GI Palpation (GI): Soft to palpation and nontender Auscultation: normal bowel sounds Skin General skin exam: rashes and/or lesions noted Extrem Right upper extremity: edema; no cyanosis Assessment & Plan Assessment & Plan (1) Obstructive sleep apnea: Code(s): G47.33 - Obstructive sleep apnea (adult) (pediatric) Category: Medical (2) GERD (gastroesophageal reflux disease): Code(s): K21.9 - Gastro-esophageal reflux disease without esophagitis Category: Medical Qualifiers: Esophagitis presence: without esophagitis Qualified Code(s): K21.9 - Gastro-esophageal reflux disease without esophagitis (3) Asthma: Code(s): J45.909 - Unspecified asthma, uncomplicated Category: Medical Qualifiers: Asthma severity: moderate Asthma persistence: persistent Asthma complication type: uncomplicated Qualified Code(s): J45.40 - Moderate persistent asthma, uncomplicated Plan adjusted APAP 8-14, ramp off, med F20 continue Breztri BID ARINA as needed Exercise routine as tolerated Reflux diet F/U 10-12 months Medications: New albuterol sulfate 90 mcg/actuation 2 inhalations inhalation Q6H PRN 18 grams 12RF shortness of breath or wheezing 30 days J44.9 - Chronic obstructive pulmonary disease, unspecified Changed From albuterol sulfate 2.5 mg (3 mL) inhalation Q8H PRN 810 mL 0RF for wheezing J45.909 - Unspecified asthma, uncomplicated To albuterol sulfate 2.5 mg (3 mL) inhalation Q8H PRN 180 mL 11RF for wheezing 30 days J45.909 - Unspecified asthma, uncomplicated Refilled albuterol sulfate 90 mcg/actuation (Ventolin HFA) 2 puffs inhalation QID PRN 8.5 grams 11RF shortness of breath or wheezing Coding Level of Care Code Est Pt Level 4 (02868) Complex EM visit Add On G2211 Diagnoses Obstructive sleep apnea G47.33 Gastroesophageal reflux disease without esophagitis K21.9 Esophagitis presence: without esophagitis Moderate persistent asthma without complication J45.40 Asthma severity: moderate Asthma persistence: persistent Asthma complication type: uncomplicated Time Spent (min) 17
--- OUTSIDE RECORDS SUMMARY | 2024-07-26 11:07 | XMS_ITS | Encounter Summary ---
Author Organization [facility] Address [address] [place] [address] Care Team Providers Care Ticket Sales Supervisor Name Role Phone Siena Cha MD Primary Care Provider [phone] Encounter Details Date Type Department Care Team (Late st Contact Info) Description 06/29/2024 Lab Requisition [facility] - Main Lab [address] [facility] [place] [address] Siena Cha MD [address] [place] [address] [place] [address] Chronic kidney disease, stage 3 unspecified (CMS/HCC V24, CMS/HCC V28); Other proteinuria; Pure hypercholesterolemia, unspecified; Type 2 diabetes mellitus without complications (CMS/HCC V24, CMS/HCC V28); Benign prostatic hyperplasia without lower urinary tract symptoms Social History Tobacco Use Types Packs/Day Years [...] on file documented as of this encounter Functional Status * Are you [...] Jesse Lauren RN documented in this encounter Plan of Treatment Upcoming Encounters Date Type Department Care Team (Late st Contact Info) Description 08/17/2024 8:10 AM EDT Office Visit [facility] [address] [place] [address] John Mcconnell NP [address] [place] [address] [address] [place] [address] 09/22/2024 12:30 PM EDT Office Visit [facility] - [place] [address] [facility] [address] [place] [phone] Brie Lynn MD [address] [facility] [address] [place] [phone] 11/07/2024 2:00 PM EDT Office Visit [facility] - [place] [address] [facility] [address] [place] [phone] Fang Vieira MD [address] [facility] [address] [place] [address] Scheduled Orders Name Type Priority Associated Diagnoses Orde r Schedule Comprehensive metabolic panel Lab Routine Chronic kidney disease, stage 3 unspecified ([facility] V24, [facility] V28) Other proteinuria Ordered: 06/29/2024 Lipid panel with reflex to direct LDL Lab Routine Pure hypercholesterolemia, unspecified Ordered: 06/29/2024 Microalbumin creatinine urine ratio Lab Routine Ordered: 025 Hemoglobin A1c Lab Routine Type 2 diabetes mellitus without complications ([facility]/HCC V24, CMS/[facility] V28) Ordered: 06/29/2024 PSA total, free and complexed, diagnostic Lab Routine Benign prostatic hyperplasia without lower urinary tract symptoms Ordered: 06/29/2024 documented as of this encounter Visit Diagnoses Diagnosis Chronic kidney disease, stage 3 unspecified (CMS/HCC V24, CMS/[facility] V28) Other proteinuria Pure hypercholesterolemia, unspecified Type 2 diabetes mellitus without complications (CMS/HCC V24, CMS/[facility] V28) Benign prostatic hyperplasia without lower urinary tract symptoms documented in this encounter Care Teams Ticket Sales Supervisor Relationship Specialty Start Date End Date Siena Cha MD [address] [place], [place] PCP - General 05/16/14 documented as of this encounter
== END 2024-07-26 10:49 | disposition home or self-care (01) ==
LOC: HO.HPS 09:58
PROVIDERS: PCP Internal Medicine; Visit Provider Hospitalist
DX: G47.33 Obstructive sleep apnea (adult) (pediatric) (principal); K21.9 Gastro-esophageal reflux disease without esophagitis; J45.40 Moderate persistent asthma, uncomplicated
CPT/HCPCS: 99214; G2211

== ENCOUNTER → 2024-07-26 09:57 | Outpatient (BNVA) | payer OTHER, SELFPAY | PROVIDERS: PCP Internal Medicine; Visit Provider Hospitalist | DX: G47.33 Obstructive sleep apnea (adult) (pediatric) (principal); J45.40 Moderate persistent asthma, uncomplicated; K21.9 Gastro-esophageal reflux disease without esophagitis; Z99.89 Dependence on other enabling machines and devices | CPT/HCPCS: 99212 ==

== ENCOUNTER 2024-07-31 09:50 | Outpatient (AMB) | payer OTHER, SELFPAY ==
--- NOTE | 2024-07-31 10:11 | A.OFFVIS_ITS ---
Vital Signs 07/31/24 10:13 Height 5 ft 7 in Weight 305 lb BMI 47.8 BP 140/66 H Blood Pressure Location Lt brachial Position Sitting Respiration 16 Pulse 77 Pulse Source Pulse Oximeter Pulse Oximetry (%) 97 Oxygen Delivery Method Room Air Intake Visit Reasons: right knee injection Trench Pipe Layer Required: No Concrete Saw Operator: Concrete Saw Operator Present Accompanied by: Chace Win Allergies hydrocodone (From VICODIN) Allergy (Severe, Verified 08/14/24 09:19) ANGIOEDEMA metformin (METFORMIN) Allergy (Intermediate, Verified 08/14/24 09:19) ITCHING/HEADACHE, rash Medication List - Last Reconciled 07/31/24 by Idalmis Negron LPN albuterol sulfate 90 mcg/actuation (Ventolin HFA) 2 puffs inhalation QID PRN albuterol sulfate 2.5 mg (3 mL) inhalation Q8H PRN 30 days albuterol sulfate 90 mcg/actuation 2 inhalations inhalation Q6H PRN 30 days allopurinol 300 mg PO DAILY fcebdkvxgh-fmlvbnqa-orraeammys 160-9-4.8 mcg/actuation (Breztri Aerosphere) 2 inhalations inhalation BID 30 days cholecalciferol (vitamin D3) 50 mcg PO DAILY CPAP (CPAP Machine/Device) As directed diazepam (Valium) 5 mg PO ONCE PRN diclofenac sodium 1% 2 grams topical QID empagliflozin (Jardiance) 10 mg PO QAM furosemide 40 mg PO DAILY humidifiers As directed isosorbide mononitrate ER 30 mg PO DAILY levothyroxine 175 mcg PO DAILY loratadine 10 mg PO DAILY losartan 100 mg PO DAILY multivit-min #56-FA-vit K-Q10 200 mcg-1,000 mcg-10 mg (DEKAs Plus (folic acid)) 1 tab PO DAILY nitroglycerin 0 mg sublingual oxygen-air delivery systems As directed potassium chloride ER 40 mEq PO BID sitagliptin phosphate (Januvia) 100 mg PO DAILY vilazodone (Viibryd) 10 mg PO DAILY HPI HPI right knee injection: Details: History of Present Illness The patient is a 64-year-old male presenting with right knee pain. He has previously undergone gel injections in the knee, which did not provide relief. The patient has also undergone radiofrequency ablation of the lumbar medial branches, which has improved his back pain, allowing him to stand taller and walk better. Pain Description - Right knee pain: Previously treated with gel injections without relief. - Lumbar pain: Improved post-radiofrequency ablation, resulting in better posture and mobility. Procedure - Right knee corticosteroid injection: Informed consent obtained. A 25-gauge needle was used to inject 40 mg of Kenalog mixed with 3 mL of ropivacaine 0.25% into the right intraarticular space. The patient tolerated the procedure well with no pain or blood loss. [facility] Medical History (Updated 01/12/24 @ 12:39 by Yony Mena MD) Pre-op chest exam Hypothyroidism, postablative Arthritis GERD (gastroesophageal reflux disease) Type 2 diabetes mellitus Glaucoma Asthma Anxiety Gout Depression Graves disease Super obesity Obstructive sleep apnea COPD (chronic obstructive pulmonary disease) Surgical History (Updated 06/12/21 @ 13:55 by Janeth Kunz PA-C) History of cardiac cath (~2015) History of eye surgery (~1997) History of umbilical hernia repair (~1997) History of laparoscopic adjustable gastric banding (~2006) History of Achilles tendon repair History of removal of laparoscopic gastric banding device (~2019) Family History Father No problems noted. Mother COPD (chronic obstructive pulmonary disease) Asthma Brother No problems noted. Brother No problems noted. Sister No problems noted. Daughter No problems noted. Daughter No problems noted. Daughter No problems noted. Social History Alcohol intake: former Patient Tobacco Use Status: Never used Tobacco Substance Use Type: Former Substance User Physical Exam Vital Signs: Last Vital Signs Pulse 77 07/31/24 10:13 Resp 16 07/31/24 10:13 BP 140/66 H 07/31/24 10:13 Pulse Ox 97 07/31/24 10:13 Oxygen Delivery Method Room Air 07/31/24 10:13 BMI result Body Mass Index 47.8 Assessment & Plan Assessment & Plan (1) Bilateral primary osteoarthritis of knee: Code(s): M17.0 - Bilateral primary osteoarthritis of knee Category: Medical Plan Plan - Plan for follow-up in two weeks for left knee injection. Patient was informed and verbally consented to the use of an ambient scribe for clinic note documentation during this visit. Discussion Notes I discussed with the patient the procedure of the right knee corticosteroid injection, including the risks and benefits. Informed consent was obtained prior to the procedure. The patient was advised to return in two weeks for a left knee injection. Patient Instructions - Return to the clinic in two weeks for a left knee injection. Coding Level of Care Code Procedure Only Diagnoses Bilateral primary osteoarthritis of knee M17.0
[2024-07-31 10:13] VITALS: BP 140/66; PULSE 77; RESP 16; O2SAT 97; BMI 47.8
--- OUTSIDE RECORDS SUMMARY | 2024-07-31 10:42 | XMS_ITS | Encounter Summary ---
Author Organization [facility] Address [address] [place] [address] Care Team Providers Care Cutting Supervisor Name Role Phone Siena Cha MD Primary Care Provider [phone] Encounter Details Date Type Department Care Team (Late st Contact Info) Description 06/29/2024 Lab Requisition [facility] - Main Lab [address] [facility] [place] [address] Siena Cha MD [address] [place] [address] [place] [address] Chronic kidney disease, stage 3 unspecified (CMS/HCC [...] Description 08/17/2024 8:10 AM EDT Office Visit [facility] [address] [place] [address] John Mcconnell NP [address] [place] [address] [address] [place] [address] 09/22/2024 12:30 PM EDT Office Visit Bariatric Surgery - [place] [address] [facility] [address] [place] [phone] Brie Lynn MD [address] [facility] [address] [place] [phone] 11/07/2024 2:00 PM EDT Office Visit Bariatric Surgery - [place] [address] [facility] [address] [place] [phone] Fang Vieira MD [address] [facility] [address] [place] [address] Scheduled Orders Name Type Priority Associated Diagnoses Orde r Schedule Comprehensive metabolic panel Lab Routine Chronic kidney disease, stage 3 unspecified ([facility] V24, [facility] V28) Other proteinuria Ordered: 06/29/2024 Lipid panel with reflex to direct LDL Lab Routine Pure hypercholesterolemia, unspecified Ordered: 06/29/2024 Microalbumin creatinine urine ratio Lab Routine Ordered: 025 Hemoglobin A1c Lab Routine Type 2 diabetes mellitus without complications ([facility]/HCC V24, CMS/[facility] V28) Ordered: 06/29/2024 PSA total, free and complexed, diagnostic Lab Routine Benign prostatic hyperplasia without lower urinary tract symptoms Ordered: 06/29/2024 documented as of this encounter Visit Diagnoses Diagnosis Chronic kidney disease, stage 3 unspecified (CMS/HCC V24, CMS/[facility] V28) Other proteinuria Pure hypercholesterolemia, unspecified Type 2 diabetes mellitus without complications (CMS/HCC V24, CMS/[facility] V28) Benign prostatic hyperplasia without lower urinary tract symptoms documented in this encounter Care Teams Cutting Supervisor Relationship Specialty Start Date End Date Siena Cha MD [address] [place], [place] PCP - General 05/16/14 documented as of this encounter
== END 2024-07-31 10:51 | disposition home or self-care (01) ==
LOC: HO.PMC 09:50
PROVIDERS: PCP Internal Medicine; Visit Provider Internal Medicine
DX: M17.0 Bilateral primary osteoarthritis of knee (principal)
CPT/HCPCS: 20610

== ENCOUNTER → 2024-07-31 09:50 | Outpatient (BNVA) | payer OTHER, SELFPAY | PROVIDERS: PCP Internal Medicine; Visit Provider Internal Medicine | DX: M17.0 Bilateral primary osteoarthritis of knee (principal) | CPT/HCPCS: 20610 ==

== ENCOUNTER 2024-08-14 09:10 | Outpatient (AMB) | payer OTHER, SELFPAY ==
[2024-08-14 09:13] VITALS: BP 135/72; PULSE 79; RESP 16; O2SAT 98; BMI 47.5
--- NOTE | 2024-08-14 09:13 | A.OFFVIS_ITS ---
Vital Signs 08/14/24 09:13 Height 5 ft 7 in Weight 303 lb BMI 47.5 BP 135/72 Blood Pressure Location Rt brachial Position Sitting Respiration 16 Pulse 79 Pulse Source Pulse Oximeter Pulse Oximetry (%) 98 Oxygen Delivery Method Room Air Intake Visit Reasons: Left knee injection Hospice Music Therapy Required: No Accompanied by: Self / Same As Patient Allergies hydrocodone (From VICODIN) Allergy (Severe, Verified 08/14/24 09:19) ANGIOEDEMA metformin (METFORMIN) Allergy (Intermediate, Verified 08/14/24 09:19) ITCHING/HEADACHE, rash HPI HPI Left knee injection: Details: History of Present Illness The patient is a 64-year-old male presenting for a left knee intra-articular injection. The patient has been using tramadol for pain management, prescribed by a physician who has recently . He takes tramadol sparingly, typically once or twice daily, and only a few times a week as needed. The patient experiences constipation when taking two doses, which limits his usage. The patient has been under the care of Dr. Wright for 25 years, who is located in the same building. He has not pursued a prescription for tramadol from Dr. Wright, as she is hesitant to prescribe both aspirin and tramadol. Pain Description - Pain location: Left knee - Pain management: Tramadol used sparingly, typically once or twice daily - Adverse effects: Constipation when taking two doses Physical Exam - Appears afebrile. - Alert and oriented. - Mood and affect appropriate. - Follows and participates in conversation appropriately. - Respiratory effort is unlabored. - Able to transition from sit to stand unassisted. - Ambulates with bilaterally normal heel strike and toe off. - Able to stand and walk on toes and heels. Pain Management - Analgesia: Tramadol used sparingly, typically once or twice daily - Adverse Effects: Constipation when taking two doses - Aberrant Drug Related Behaviors: None reported, patient is compliant Procedure - Procedure: Left knee intra-articular injection - Consent: Informed consent obtained - Description: 25 gauge needle introduced into joint space, 40 mg of triamcinilone mixed with 3 mL bupivacaine 0.25% injected without pain or complication - Outcome: Patient tolerated procedure well, discharged in stable condition [facility] Medical History (Updated 01/12/24 @ 12:39 by Yony Mena MD) Pre-op chest exam Hypothyroidism, postablative Arthritis GERD (gastroesophageal reflux disease) Type 2 diabetes mellitus Glaucoma Asthma Anxiety Gout Depression Graves disease Super obesity Obstructive sleep apnea COPD (chronic obstructive pulmonary disease) Surgical History (Updated 06/12/21 @ 13:55 by Janeth Kunz PA-C) History of cardiac cath (~2015) History of eye surgery (~1997) History of umbilical hernia repair (~1997) History of laparoscopic adjustable gastric banding (~2006) History of Achilles tendon repair History of removal of laparoscopic gastric banding device (~2019) Family History Father No problems noted. Mother COPD (chronic obstructive pulmonary disease) Asthma Brother No problems noted. Brother No problems noted. Sister No problems noted. Daughter No problems noted. Daughter No problems noted. Daughter No problems noted. Social History Alcohol intake: former Patient Tobacco Use Status: Never used Tobacco Substance Use Type: Former Substance User Physical Exam Vital Signs: Last Vital Signs Pulse 79 08/14/24 09:13 Resp 16 08/14/24 09:13 BP 135/72 08/14/24 09:13 Pulse Ox 98 08/14/24 09:13 Oxygen Delivery Method Room Air 08/14/24 09:13 BMI result Body Mass Index 47.5 Assessment & Plan Assessment & Plan (1) Bilateral primary osteoarthritis of knee: Code(s): M17.0 - Bilateral primary osteoarthritis of knee Category: Medical Plan Plan - Recommend obtaining tramadol prescription through primary care provider to avoid the burden of opioid program requirements through our office for low dose PRN tramadol use. - PRN Tramadol use 3-5 times a week is reasonable for pain flares Patient was informed and verbally consented to the use of an ambient scribe for clinic note documentation during this visit. Discussion Notes I discussed with the patient the option of obtaining tramadol through his primary care provider to avoid the burdensome requirements of our opioid program, such as random pill counts and urine checks. I assured him that I would document in my note that tramadol use is acceptable, which may assist in obtaining the prescription from his primary care provider. Patient Instructions - Follow up with your primary care provider to discuss tramadol prescription. - Use tramadol sparingly as needed for pain management. - Monitor for constipation and adjust dosage accordingly. Coding Level of Care Code Est Pt Level 3 (68072) Diagnoses Bilateral primary osteoarthritis of knee M17.0
--- OUTSIDE RECORDS SUMMARY | 2024-08-14 09:36 | XMS_ITS | Clinical Summary ---
Author Organization [facility] Address [address] [place] [phone] Phone Care Team Providers Care Marine Habitat Resource Specialist Name Role Phone Odilon Cha MD Primary Care Provider Unavail able Allergies Active Allergy Reactions Criticality Noted Date Comments Ryder Inhibitors 10/21/2020 Acetaminophen 10/21/2020 Hydrocodone 10/21/2020 Hydrocodone-Acetaminophen 10/21/2020 Canagliflozin 10/21/2020 Metformin 10/21/2020 Medications Tiotropium [place]-Olodaterol 2.5-2.5 MCG/ACT aerosol solution Stiolto Respimat 2.5 [...] Vitamins-Minerals (DEKAs Plus) chewable tablet Chew Active cholecalciferol (VITAMIN D-3) 50 MCG (1999 UT) capsuleIndications:Chr onic kidney disease, stage 2 (mild),Hypertension,Vi tamin D deficiency, not otherwise specified,Secondary hyperparathyroidism of renal origin (HCC) Take 1 capsule (2,000 Units total) by mouth 1 (one) time each day 90 capsule 3 024 2024 Active metoprolol succinate XL (TOPROL-XL) 100 MG 24 hr tabletIndications:Dryer And Washer Mechanic abel kidney disease, stage 2 (mild),Hypertension Take 1.5 tablets (150 mg total) by mouth 1 (one) time each day Do not crush or chew. 135 tablet 3 025 2024 Active Active Problems Problem Noted Date [...] apnea 04/02/2011 Type 2 diabetes mellitus 04/02/2011 Encounters Date Type Department Care Team Description 05/25/2024 Refill [facility] [address] [place] [phone] Meme Estrella MA Chronic kidney disease, stage 2 (mild); Hypertension from Last 3 Months Immunizations Immunization Administration Dates Next Due Influenza, Quadrivalent, With [...] Care Team (Late st Contact Info) Description 01/30/2025 8:00 AM EST Office Visit [facility] [address] [phone] Shaila Flores TAVERN KEEPER [address] [address] Health Maintenance Due Date Last Done Comments Pneumococcal Vaccine: 50+ Years (1 of 2 - PCV) 06/09/1978 Colorectal Cancer Screening: Annual FOBT 06/09/2008 Colorectal Cancer Screening: Colonoscopy 06/09/2008 Colorectal Cancer Screening: Sigmoidoscopy 06/09/2008 Diabetes: Ophthalmology Exam 09/27/2020 Diabetes: Pedal Pulse Checked 09/27/2020 Diabetes: Sensory Foot Exam 09/27/2020 Diabetes: Visual Foot Exam 09/27/2020 Diabetes: Hemoglobin A1C 06/18/2024 025, 12/13/2023, 12/10/2021, Additional history exists Influenza Vaccine (#1) 2024 12/16/2015 Hepatitis B Vaccine Aged Out No longe [...] AM EDT) Hemoglobin A1C 7.9(H) (4.0-5.6) % [facility] Comment: MONITORING: In known diabetic patients, hemoglobin A1c targets should be discussed with health care provider. DIAGNOSTIC USE: The [place] Diabetes Association (ADA) and the World Health [...] Supplement 1 Testing performed or reported by [facility], a Service of [facility], [address] [place] [id number] Santos Long MD, Cemetery Vault Installer [facility]# [id number] Blood specimen (specimen) Venous blood / Unknown 12/10/2021 9:55 AM EDT 12/10/2021 10:03 AM EDT Miles Bojorquez MD LAB BLOOD ORDERABLES Fernanda may Result [facility] from Last 3 Months or Most Recently Relevant to Health Maintenance Insurance [facility] ([id number]) [facility] ([id number]) [place]UNK[place]T [id number] Care Teams Marine Habitat Resource Specialist Relationship Specialty Start Date End Date Odilon Cha MD [address] [place] [address] [place] [address] PCP - General Neurology 09/18/20
--- OUTSIDE RECORDS SUMMARY | 2024-08-14 09:36 | XMS_ITS | Encounter Summary ---
Author Organization [facility] [address] Address [address] [place] [address] Care Team Providers Care Bank Manager Name Role Phone Siena Cha MD Primary Care Provider [phone] Encounter Details Date Type Department Care Team (Late st Contact Info) Description 06/29/2024 Lab Requisition [facility] - Main Lab [address] [facility] [place] [address] Siena Cha MD [address] [place] [address] [place] [address] Chronic kidney disease, stage 3 unspecified (CMS/HCC [...] Description 08/17/2024 8:10 AM EDT Office Visit [facility] [address] [place] [address] John Mcconnell NP [address] [place] [address] [address] [place] [address] 09/22/2024 12:30 PM EDT Office Visit [facility]ariat[facility] - [place] 175 [facility] [address] [place] [phone] Brie Lynn MD 175 [facility] [address] [place] [phone] 11/07/2024 2:00 PM EDT Office Visit Bariatric Surgery - [place] 175 [facility] [address] [place] [phone] Fang Vieira MD 175 [facility] [address] [place] [address] Scheduled Orders Name Type Priority Associated Diagnoses Orde r Schedule Comprehensive metabolic panel Lab Routine Chronic kidney disease, stage 3 unspecified ([facility] V24, [facility] V28) Other proteinuria Ordered: 06/29/2024 Lipid panel with reflex to direct LDL Lab Routine Pure hypercholesterolemia, unspecified Ordered: 06/29/2024 Microalbumin creatinine urine ratio Lab Routine Ordered: 025 Hemoglobin A1c Lab Routine Type 2 diabetes mellitus without complications ([facility]/HCC V24, [facility] V28) Ordered: 06/29/2024 PSA total, free and complexed, diagnostic Lab Routine Benign prostatic hyperplasia without lower urinary tract symptoms Ordered: 06/29/2024 documented as of this encounter Visit Diagnoses Diagnosis Chronic kidney disease, stage 3 unspecified (CMS/HCC V24, CMS/[facility] V28) Other proteinuria Pure hypercholesterolemia, unspecified Type 2 diabetes mellitus without complications (CMS/HCC V24, [facility] V28) Benign prostatic hyperplasia without lower urinary tract symptoms documented in this encounter Care Teams Bank Manager Relationship Specialty Start Date End Date Siena Cha MD [address] [place], [place] PCP - General 05/16/14 documented as of this encounter
== END 2024-08-14 09:47 | disposition home or self-care (01) ==
LOC: HO.PMC 09:11
PROVIDERS: PCP Internal Medicine; Visit Provider Internal Medicine
DX: M17.0 Bilateral primary osteoarthritis of knee (principal)
CPT/HCPCS: 20610

== ENCOUNTER → 2024-08-14 09:10 | Outpatient (BNVA) | payer OTHER, SELFPAY | PROVIDERS: PCP Internal Medicine; Visit Provider Internal Medicine | DX: M17.0 Bilateral primary osteoarthritis of knee (principal) | CPT/HCPCS: 20610 ==

== ENCOUNTER 2024-12-08 09:39 | Outpatient (AMB) | payer OTHER, SELFPAY ==
--- NOTE | 2024-12-08 10:01 | A.OFFVIS_ITS ---
Vital Signs 12/08/24 10:02 Height 5 ft 7 in Weight 297 lb BMI 46.5 BP 128/60 Blood Pressure Location Rt brachial Position Sitting Respiration 16 Pulse 81 Pulse Source Pulse Oximeter Pulse Oximetry (%) 98 Oxygen Delivery Method Room Air Intake Visit Reasons: Right knee injection Fashion Supervisor Required: No Salesperson Stereo Equipment: Salesperson Stereo Equipment Present Accompanied by: Chace Win Allergies hydrocodone (From VICODIN) Allergy (Severe, Verified 12/11/24 09:30) ANGIOEDEMA metformin (METFORMIN) Allergy (Intermediate, Verified 12/11/24 09:30) ITCHING/HEADACHE, rash Medication List - Last Reconciled 12/08/24 by Idalmis Negron LPN albuterol sulfate 2.5 mg (3 mL) inhalation Q8H PRN 30 days albuterol sulfate 90 mcg/actuation 2 inhalations inhalation Q6H PRN 30 days allopurinol 300 mg PO DAILY zjdnnnxxbm-ddxkzbxl-crhgsrgjpz 160-9-4.8 mcg/actuation (Breztri Aerosphere) 2 inhalations PO BID cholecalciferol (vitamin D3) 50 mcg PO DAILY CPAP (CPAP Machine/Device) As directed diclofenac sodium 1% 2 grams topical QID empagliflozin (Jardiance) 10 mg PO QAM furosemide 40 mg PO DAILY humidifiers As directed isosorbide mononitrate ER 30 mg PO DAILY levothyroxine 175 mcg PO DAILY loratadine 10 mg PO DAILY losartan 100 mg PO DAILY multivit-mins 56-FA-vit K-Q10 200 mcg-1,000 mcg-10 mg (DEKAs Plus (folic acid)) 1 tab PO DAILY nitroglycerin 0 mg sublingual oxygen-air delivery systems As directed potassium chloride ER 40 mEq PO BID sitagliptin phosphate (Januvia) 100 mg PO DAILY vilazodone (Viibryd) 10 mg PO DAILY HPI HPI Right knee injection: Details: History of Present Illness The patient is a 64-year-old male presenting for corticosteroid injection to the knee. The patient has a history of osteoarthritis in the knee, which has been managed with corticosteroid injections. The last injection for the right knee was administered on July 15, and the left knee was treated in June. The patient reports that the previous injections provided significant relief, allowing for improved mobility and reduced stiffness. Pain Description - Onset and Timing: Pain is chronic with episodes of increased stiffness and soreness. - Quality and Character: Described as stiffness and soreness, particularly in cold weather. - Primary Location: Right knee, with previous treatment also on the left knee. - Exacerbating Factors: Cold weather increases stiffness and soreness. - Relieving Factors: Corticosteroid injections provide significant relief. Physical Exam - Appears afebrile. - Alert and oriented. - Mood and affect appropriate. - Follows and participates in conversation appropriately. - Respiratory effort is unlabored. Pain Management - Affect: No specific impact on mood or psychological wellbeing discussed. - Analgesia: Corticosteroid injections used for pain relief, with significant improvement reported. - Adverse Effects: No adverse effects from pain management reported. - Activities of Daily Living: Improved mobility and reduced stiffness post- injection. - Aberrant Drug Related Behaviors: No aberrant behaviors reported. Procedure - Right Knee Corticosteroid Injection: Informed consent obtained. The patient was seated, and the right knee was prepped with Chloroprep. A 40 mg dose of triamcinolone was injected using a 25-gauge needle with landmark technique. The patient tolerated the procedure well with no blood loss. [facility] Medical History (Updated 01/12/24 @ 12:39 by Yony Mena MD) Pre-op chest exam Hypothyroidism, postablative Arthritis GERD (gastroesophageal reflux disease) Type 2 diabetes mellitus Glaucoma Asthma Anxiety Gout Depression Graves disease Super obesity Obstructive sleep apnea COPD (chronic obstructive pulmonary disease) Surgical History (Updated 06/12/21 @ 13:55 by Janeth Kunz PA-C) History of cardiac cath (~2015) History of eye surgery (~1997) History of umbilical hernia repair (~1997) History of laparoscopic adjustable gastric banding (~2006) History of Achilles tendon repair History of removal of laparoscopic gastric banding device (~2019) Family History Father No problems noted. Mother COPD (chronic obstructive pulmonary disease) Asthma Brother No problems noted. Brother No problems noted. Sister No problems noted. Daughter No problems noted. Daughter No problems noted. Daughter No problems noted. Social History Alcohol intake: former Patient Tobacco Use Status: Never used Tobacco Substance Use Type: Former Substance User Physical Exam Vital Signs: Last Vital Signs Pulse 81 12/08/24 10:02 Resp 16 12/08/24 10:02 BP 128/60 12/08/24 10:02 Pulse Ox 98 12/08/24 10:02 Oxygen Delivery Method Room Air 12/08/24 10:02 BMI result Body Mass Index 46.5 Assessment & Plan Assessment & Plan (1) Bilateral primary osteoarthritis of knee: Code(s): M17.0 - Bilateral primary osteoarthritis of knee Category: Medical Plan Plan Patient was informed and verbally consented to the use of an ambient scribe for clinic note documentation during this visit. 1. Osteoarthritis Of The Knee - Continue with corticosteroid injections as needed for pain management. Follow- up scheduled for next week for the other knee injection. Discussion Notes I discussed with the patient the benefits and procedure of the corticosteroid injection for knee osteoarthritis. The patient was informed about the expected relief and the plan for follow-up next week for the other knee. Patient Instructions - Monitor the knee for any signs of infection or adverse reactions post- injection. - Return to the clinic next week for the other knee injection. Coding Level of Care Code Procedure Only Diagnoses Bilateral primary osteoarthritis of knee M17.0
[2024-12-08 10:02] VITALS: BP 128/60; PULSE 81; RESP 16; O2SAT 98; BMI 46.5
--- OUTSIDE RECORDS SUMMARY | 2024-12-08 10:47 | XMS_ITS | Encounter Summary ---
Author Organization [facility] Address [address] [place] [address] Care Team Providers Care Senior Business Manager Name Role Phone Siena Cha MD Primary Care Provider [phone] Encounter Details Date Type Department Care Team (Late st Contact Info) Description 06/29/2024 Lab Requisition [facility] - Main Lab [address] [facility] [place] [address] Siena Cha MD [address] [place] [address] [place] [address] Chronic kidney disease, stage 3 unspecified (CMS/HCC [...] Safety Answer Date Record ed Physical Abuse Unrecognized value 03/14/2024 Verbal Abuse Unrecognized value 03/14/2024 Sex and Gender Information Value Date [...] Care Team (Late st Contact Info) Description 12/13/2024 2:40 PM EST Office Visit [facility] [address] [facility] [address] [place] [phone] Marie Corral PA [address] [place] [address] [place] [phone] 12/25/2024 8:30 AM EST Office Visit Bariatric Surgery - [place] 175 [facility] [address] [place] [phone] Brie Lynn MD [address] [place] [phone] Scheduled Orders Name Type Priority Associated Diagnoses Orde r Schedule Comprehensive metabolic panel Lab Routine Chronic kidney disease, stage 3 unspecified ([facility], [facility] V28) Other proteinuria Ordered: 06/29/2024 Lipid panel with reflex to direct LDL Lab Routine Pure hypercholesterolemia, unspecified Ordered: 06/29/2024 Microalbumin creatinine urine ratio Lab Routine Ordered: 025 Hemoglobin A1c Lab Routine Type 2 diabetes mellitus without complications ([facility] V24, [facility] V28) Ordered: 06/29/2024 PSA total, free and complexed, diagnostic Lab Routine Benign prostatic hyperplasia without lower urinary tract symptoms Ordered: 06/29/2024 documented as of this encounter Visit Diagnoses Diagnosis Chronic kidney disease, stage 3 unspecified ([facility] V24, [facility] V28) Other proteinuria Pure hypercholesterolemia, unspecified Type 2 diabetes mellitus without complications ([facility] V24, [facility] V28) Benign prostatic hyperplasia without lower urinary tract symptoms documented in this encounter Care Teams Senior Business Manager Relationship Specialty Start Date End Date Siena Cha MD [address] [place] [address] PCP - General 05/16/14 documented as of this encounter
--- OUTSIDE RECORDS SUMMARY | 2024-12-08 10:47 | XMS_ITS | Clinical Summary ---
Author Organization LL [address] [facility] Address [address] [place] [address] Phone Care Team Providers Care Closet Organizer Name Role Phone Siena Cha MD Primary Care Provider [phone] Allergies Active Allergy Reactions Criticality Noted Date Comments Hydrocodone-Acetaminophen 04/02/2011 Metformin 10/21/2020 Medications allopurinoL (ZYLOPRIM) 300 mg tablet Take 1 tablet (300 mg total) by mouth 1 (one) time each day. 3 Active traMADoL (ULTRAM) 50 mg tablet Take 1 tablet (50 mg total) by mouth 3 (three) times a day if needed for moderate pain. 4 Active potassium chloride 20 mEq tablet extended release Take 20 mEq by mouth 2 (two) times a day. Active budesonide-glyco pyr-formoterol (Breztri Aerosphere) 160-9-4.8 mcg/actuation HFA aerosol inhaler inhaler Inhale 2 puffs by mouth 2 (two) times a day. Active albuterol 2.5 mg /3 mL (0.083 %) nebulizer solution Active albuterol HFA (PROAIR HFA ; PROVENTIL HFA ; VENTOLIN HFA) 90 mcg/actuation inhaler Inhale 2 puffs by mouth 4 (four) times a day. Active levothyroxine (SYNTHROID, LEVOTHROID) 175 mcg tablet Take 1 tablet (175 mcg total) by mouth 1 (one) time [...] 20 mg tabletIndication s:Atrial flutter, unspecified type (CMS/HCC V24, CMS/HCC V28) Take 1 tablet (20 mg total) by mouth 1 (one) time each day. With meals 90 each 3 5 03/29/19 26 Active multivit-min #56-FA-vit K-Q10 (DEKAs Plus, folic acid,) 200 mcg-1,000 mcg-10 mg tablet,chewable CHEW AND SWALLOW 1 TABLET BY MOUTH DAILY 30 tablet 11 5 Active vilazodone (VIIBRYD) 10 mg tablet Take 1 tablet (10 mg total) by mouth 1 (one) time each day. Active sotaloL (BETAPACE) 120 mg tablet TAKE 1 TABLET(120 MG) BY MOUTH EVERY 12 HOURS 180 tablet 5 Active metOLazone (ZAROXOLYN) 2.5 mg tablet Take 1 tablet (2.5 mg total) by mouth 1 (one) time each day. 5 Active Mounjaro 2.5 mg/0.5 mL injection Inject 0.5 mL (2.5 mg total) under the skin every 7 (seven) days. Active Active Problems Problem Noted Date Diagnosed Date Atrial flutter ([facility] V24, [facility] V28) 2024 Overview (04/03/2024): New atrial flutter diagnosed Mar 2024. Started on sotalol 120 mg po BID. QT stable. Was on aspirin. Transition to Xarelto 20 mg daily starting April 03, 2024. Assessment & Plan (09/27/2024 8:05 PM EDT): Orders: ECG 12 lead Assessment & Plan (08/17/2024 9:04 AM EDT): Symptomatic atrial flutter currently in sinus rhythm, but with significant fatigue on sotalol. Will refer to Dr. Begum for discussion of atrial flutter ablation. CHADSVASc - 3. Continue with rivaroxaban and for now sotalol. Orders: ECG 12 lead Assessment & Plan (04/03/2024 3:26 PM EST): Orders: ECG 12 lead rivaroxaban (XARELTO) 20 mg tablet; Take 1 tablet (20 mg total) by mouth 1 (one) time each day. With meals Class 3 severe obesity with body mass index (BMI) of 45.0 to 49.9 in adult ([facility] V24, [facility] V28) 01/24/2024 Assessment & Plan (08/17/2024 9:04 AM EDT): BMI 48.24. We discussed risk reduction through lifestyle choices including healthy diet, routine exercise and weight management. Consider GLP1 injection. Assessment & Plan (04/03/2024 3:26 PM EST): Orders: ECG 12 lead CHF (congestive heart failur e), NYHA class II, chronic, diastolic (CMS/HCC V24, CMS/HCC V28) 12/08/2021 Overview (08/17/2024): History of normal coronary angiogram. Improved after weight loss following bariatric surgery. 03/14/24 TRANSTHORACIC ECHOCARDIOGRAM (TTE) COMPLETE (CONTRAST/BUBBLE/3D PRN) 03/14/2024 03/14/2024 Interpretation Summary Left ventricle cavity size is normal.Left ventricle mild hypertrophy. No regional LV wall motion abnormalities noted.Left ventricular systolic function is low normal with an ejection fraction of 50-55%. Right ventricle is enlarged. Right ventricular systolic function is normal. Tricuspid Valve: There is mild regurgitation. Estimated RA pressure is 8 mmHg. The RVSP is estimated at 28 mmHg. Signed by: Jose Angel Corrales MD on 03/14/2024 3:04 PM Assessment & Plan (08/17/2024 9:04 AM EDT): Echocardiogram from 2024 showed low normal LV systolic. Aside from lower extremity edema, he appears compensated on exam. Edema likely secondary to venous insufficiency. Continue with losartan, furosemide, empagliflozin. Consider switching losartan to Entresto. Also consider adding GLP1 injection. We reviewed heart failure management including low-sodium diet, symptom surveillance, daily weights and medication compliance. The patient is aware they may take extra diuretic for intermittent evidence of mild congestive signs and symptoms. If the increase of frequency of as needed diuretic becomes more regular than they will make our office aware. If the patient has weight gain over 3lbs in one day or 5lbs over several days, they are aware to contact our office. With any severe or sustained symptoms, they are aware to contact EMS via 911 and go to the emergency room. Assessment & Plan (04/03/2024 3:26 PM EST): Orders: ECG 12 lead Edema 09/23/2020 Chronic kidney disease 04/02/2011 Assessment & Plan (04/03/2024 3:26 PM EST): Orders: ECG 12 lead DM (diabetes mellitus), type 2 with renal complications (CMS/HCC V24, CMS/HCC V28) 04/02/2011 Essential hypertension 04/02/2011 Assessment & Plan (08/17/2024 9:04 AM EDT): Controlled. Continue with losartan, furosemide. Orders: ECG 12 lead Gout 04/02/2011 Hyperlipidemia 04/02/2011 Overview (01/24/2024): IMO update Assessment & Plan (08/17/2024 9:04 AM EDT): Diet controlled. Orders: ECG 12 lead Hypothyroidism 04/02/2011 Obstructive sleep apnea 04/02/2011 Assessment & Plan (08/17/2024 9:04 AM EDT): Follows with pulmonology for sleep apnea management. Assessment & Plan (04/03/2024 3:26 PM EST): Orders: ECG 12 lead Leg edema 04/02/2011 Resolved Problems Problem Noted Date Diagnosed Date Resolved Date Atrial fibrillation with RVR (CMS/HCC V24, CMS/HCC V28) 03/14/2024 03/16/2024 Encounters Date Type Department Care Team Description 11/06/2024 Results Follow-Up [facility] - [address] [place] [address] Marie Corral PA 10/26/2024 9:40 AM EDT Office Visit [facility] - [address] [place] [address] Marie Corral PA Paroxysmal atrial fibrillation (CMS/HCC V24, CMS/HCC V28) (Primary Dx); Obstructive sleep apnea; CHF (congestive heart failure), NYHA class II, chronic, diastolic (CMS/HCC V24, CMS/HCC V28); Typical atrial flutter (CMS/HCC V24, CMS/HCC V28); Class 3 severe obesity with body mass index (BMI) of 45.0 to 49.9 in adult (CMS/HCC V24, CMS/HCC V28) 10/04/2024 Telephone [facility] - [address] [place] [address] Eduardo Begum MD 10/03/2024 Telephone [facility] - [facility] [address] [place] [address] Silvano Lake MD 09/27/2024 1:00 PM EDT Consult [facility] - [address] [place] [address] Eduardo Begum MD Atrial flutter, unspecified type (CMS/HCC V24, CMS/HCC V28) (Primary Dx); Paroxysmal atrial fibrillation (CMS/HCC V24, CMS/HCC V28) 09/22/2024 12:30 PM EDT Office Visit [facility] [place] [address] [place] [address] Brie Lynn MD Class 3 severe obesity with body mass index (BMI) of 45.0 to 49.9 in adult (CMS/HCC V24, CMS/HCC V28) (Primary Dx); History of sleeve gastrectomy from Last 3 Months Surgical History Surgery Date Site/Laterality Comments OTHER SURGICAL HISTORY PROCEDURE: [place] LAPS GASTRIC RESTRICTIVE PROCEDURE PLACE DEVICE OTHER SURGICAL HISTORY PROCEDURE: HISTORY OTHER; COMMENT: lap removal of gastric band OTHER SURGICAL HISTORY Right PROCEDURE: HISTORY OTHER; COMMENT: achilles repair OTHER SURGICAL HISTORY PROCEDURE: NJ RPR UMBILICAL HRNA 5 YRS/> REDUCIBLE; COMMENT: no mesh, open OTHER SURGICAL HISTORY Bilateral PROCEDURE: HISTORY OTHER; COMMENT: eye surgery -for graves disease Medical History Medical History Date Comments Hypertension 04/02/2011 DX:Hypertension Historical Medical DX 04/02/2011 DX:Hyperli pidemia LDL goal < 70 DM type 2 (diabetes mellitus , type 2) (CMS/HCC V24, CMS/HCC V28) 04/02/2011 DX:DM type 2 (diabetes montrell itus, type 2) ([facility]) Morbid obesity (CMS/HCC V24, CMS/[facility] V28) 04/02/2011 DX:Morbid obesity ([facility]) Obstructive sleep apnea 04/02/2011 DX:Obstr uctive sleep apnea Hx of laparoscopic gastric banding 04/02/2011 DX:Hx of laparoscopic gastric banding Leg edema 04/02/2011 DX:Leg edema CKD (chronic kidney disease) 04/02/2011 DX: CKD (chronic kidney disease) Gout, unspecified 04/02/2011 DX:Gout, unspe cified Unspecified hypothyroidism 04/02/2011 DX:Un specified hypothyroidism DM (diabetes mellitus), type 2 with renal complications ([facility] V24, [facility] V28) 04/02/2011 DX:DM (diabetes mellitus), t ype 2 with renal complications ([facility]) CHF (congestive heart failur e) ([facility] V24, [facility] V28) DX:CHF (congestive heart fa ilure) ([facility]) Glaucoma DX:Glaucoma PTSD (post-traumatic stress disorder) DX:PTSD [...] Sign Reading Time Taken Comments Blood Pressure 134/88 10/26/2024 9:29 AM EDT Pulse 82 10/26/2024 9:29 AM EDT Temperature 36.6 C (97.8 F) 09/22/2024 12:23 PM EDT Respiratory Rate 18 03/16/2024 12:00 PM EST Oxygen Saturation 97% 10/26/2024 9:29 AM EDT Inhaled Oxygen Concentration - - Weight 141 kg (310 lb) 10/26/2024 9:29 AM EDT Height 170.2 cm (5' 7 ) 10/26/2024 9:29 AM EDT Body Mass Index 48.55 10/26/2024 9:29 AM EDT Plan of Treatment Upcoming Encounters Date Type Department Care Team (Late st Contact Info) Description 12/13/2024 2:40 PM EST Office Visit [facility] - [facility] [address] [facility] [address] [place] [phone] Marie Corral PA [address] [place] [address] 12/25/2024 8:30 AM EST Office Visit Bariatric Surgery - [place] [address] [place] [address] Brie Lynn MD [address] [place] [phone] Health Maintenance Due Date Last Done Comments Colorectal Cancer Screening: Colonoscopy 1959 Diabetes: Annual Foot Exam 06/09/1969 Diabetes: Annual Retina Eye Exam 06/09/1969 Hepatitis C Screening 01/17/2022 Social Influencers of Health Screening 01/17/2022 Depression Screening 02/09/2024 COVID-19 Vaccine ( season) 2024 10/19/2023, 12/14/2022, 03/10/2022, Additional history exists Falls Risk Assessment 03/15/2025 03/15/2024 Diabetes: Blood Sugar Control Test (HGBA1C) 03/21/2025 09/18/2024, 06/19/2024, 03/21/2024, Additional history exists Diabetes: Annual Urine Albumin-Creatinine Ratio (uACR) 09/18/2025 09/18/2024, 11/17/2023 Diabetes: Annual GFR (Glomerular Filtration Rate) 11/06/2025 11/06/2024, 09/18/2024, 06/19/2024, Additional history exists Hypertension/CHF/CAD Annual BMP Blood Test 11/06/2025 11/06/2024, 09/18/2024, 06/19/2024, Additional history exists DTaP,Tdap,and Td Vaccines (2 - Td or Tdap) 09/23/2026 09/23/2016 Cholesterol Screening (Lipid Panel) 09/18/2029 09/18/2024, 12/13/2023 RSV Immunization Adult Patients Completed 10/17/2022 Zoster Vaccines Completed 08/06/2023, 05/09, 09/18/2020, Additional history exists Influenza Vaccine Completed 09/22/2024, , 10/17/2022, Additional history exists Pneumococcal Vaccine: 50+ Years Completed 09/22/2024, 10/20/2018, 08/17/2017, Additional history exists HIB Vaccines Aged Out [...] age to complete this topic Meningococcal B Vaccine Aged Out No l onger eligible based on patient's age to complete this topic RSV Immunization Patients Under 20 months Aged Out No longer eligible based on patient's age to complete this topic Varicella Vaccines Aged Out No longer eligible based on patient's age to complete this topic Procedures Procedure Name Priority Date/Time Associated Diagnosis Comments BASIC METABOLIC PANEL Routine 11/06/2024 7:56 AM EDT Paroxysmal atrial fibrillation (CMS/HCC V24, CMS/HCC V28) PROTHROMBIN TIME WITH INR Routine 11/06/2024 7:56 AM EDT Paroxysmal atrial fibrillation (CMS/HCC V24, CMS/HCC V28) COMPLETE BLOOD COUNT Routine 11/06/2024 7:56 AM EDT Paroxysmal atrial fibrillation (CMS/HCC V24, CMS/HCC V28) ECG 12-LEAD Routine 10/26/2024 10:56 AM EDT Paroxysmal atrial fibrillation (CMS/HCC V24, CMS/HCC V28) ECG 12-LEAD Routine 09/27/2024 12:52 PM EDT Atrial flutter, unspecified type (CMS/HCC V24, CMS/HCC V28) MICROALBUMIN CREATININE URINE RATIO Routine 09/18/2024 8:51 AM EDT Chronic kidney disease, stage III (moderate) (CMS/HCC V24, CMS/HCC V28) Nephrogenous proteinuria Diabetes mellitus (CMS/HCC V24, CMS/HCC V28) Benign enlargement of prostate PSA TOTAL, FREE AND COMPLEXED, DIAGNOSTIC Routine 09/18/2024 8:48 AM EDT Chronic kidney disease, stage III (moderate) (CMS/HCC V24, CMS/HCC V28) Nephrogenous proteinuria Diabetes mellitus (CMS/HCC V24, CMS/HCC V28) Benign enlargement of prostate LIPID PANEL WITH REFLEX TO DIRECT LDL Routine 09/18/2024 8:48 AM EDT Chronic kidney disease, stage III (moderate) (CMS/HCC V24, CMS/HCC V28) Nephrogenous proteinuria Diabetes mellitus (CMS/HCC V24, CMS/HCC V28) Benign enlargement of prostate HEMOGLOBIN A1C Routine 09/18/2024 8:48 AM EDT Chronic kidney disease, stage III (moderate) (CMS/HCC V24, CMS/HCC V28) Nephrogenous proteinuria Diabetes mellitus (CMS/HCC V24, CMS/HCC V28) Benign enlargement of prostate COMPREHENSIVE METABOLIC PANEL Routine 09/18/2024 8:48 AM EDT Chronic kidney disease, stage III (moderate) (CMS/HCC V24, CMS/HCC V28) Nephrogenous proteinuria Diabetes mellitus (CMS/HCC V24, CMS/HCC V28) Benign enlargement of prostate from Last 3 Months Results * (ABNORMAL) Prothrombin time with INR (11/06/2024 7:56 AM EDT) Protime 27.0(H) 10.6 - 13.9 sec LAB COAGULATION METHOD 11/06/2024 9:14 AM [facility] INR 2.2 LAB COAGULATION METHOD 11/06/2024 9:14 AM [facility] Blood Venous blood specimen / Unknown Venipuncture / Unknown 11/06/2024 7:56 AM EDT 11/06/2024 8:55 AM EDT Eduardo Begum MD LAB BLOOD ORDERABLES Final Result [facility] [address] [place] [address], * (ABNORMAL) Complete blood count (11/06/2024 7:56 AM EDT) [facility] WBC 7.6 4.8 - 10.8 K/mcL LAB HEMETOLOGY METHOD 11/06/2024 9:07 AM EDT [facility] RBC 5.20 4.50 - 5.50 M/mcL LAB HEMETOLOGY METHOD 11/06/2024 9:07 AM [facility] Hemoglobin 13.4(L) 13.5 - 17.5 g/dL LAB HEMETOLOGY METHOD 11/06/2024 9:07 AM [facility] Hematocrit 40.5(L) 42.0 - 54.0 % LAB HEMETOLOGY METHOD 11/06/2024 9:07 AM [facility] MCV 77.3(L) 79.0 - 98.0 FL LAB HEMETOLOGY METHOD 11/06/2024 9:07 AM [facility] MCH 25.6(L) 27.0 - 32.0 pcg LAB HEMETOLOGY METHOD 11/06/2024 9:07 AM [facility] MCHC 33.1 32.0 - 37.0 g/dL LAB HEMETOLOGY METHOD 11/06/2024 9:07 AM [facility] RDW 14.5 11.0 - 15.0 % LAB HEMETOLOGY METHOD 11/06/2024 9:07 AM [facility] Platelets 267 130 - 400 K/mcL LAB HEMETOLOGY METHOD 11/06/2024 9:07 AM EDT [facility] MPV 11.8(H) 7.0 - 11.0 FL LAB HEMETOLOGY METHOD 11/06/2024 9:07 AM EDT [facility] NRBC 0.0 <1.0 % LAB HEMETOLOGY METHOD 11/06/2024 9:07 AM EDT [facility] NRBC Absolute 0.00 <0.10 K/mcL LAB HEMETOLOGY METHOD 11/06/2024 9:07 AM EDT [facility] Blood Venous blood specimen / Unknown Venipuncture / Unknown 11/06/2024 7:56 AM EDT 11/06/2024 8:55 AM EDT Eduardo Begum MD LAB BLOOD ORDERABLES Final Result [facility] [address] [place] [address], * (ABNORMAL) Basic metabolic panel (11/06/2024 7:56 AM EDT) Sodium 141 133 - 145 mmol/L LAB CHEMISTRY METHOD 11/06/2024 9:46 AM [facility] Potassium 3.7 3.5 - 5.5 mmol/L LAB CHEMISTRY METHOD 11/06/2024 9:46 AM [facility] Chloride 106 96 - 110 mmol/L LAB CHEMISTRY METHOD 11/06/2024 9:46 AM [facility] CO2 29 21 - 32 mmol/L LAB CHEMISTRY METHOD 11/06/2024 9:46 AM [facility] Anion Gap 6 3 - 11 LAB CHEMISTRY METHOD 11/06/2024 9:46 AM [facility] Glucose 155(H) 70 - 100 mg/dL LAB CHEMISTRY METHOD 11/06/2024 9:46 AM [facility] BUN 36(H) 5 - 25 mg/dL LAB CHEMISTRY METHOD 11/06/2024 9:46 AM EDT [facility] Creatinine 1.35(H) 0.70 - 1.30 mg/dL LAB CHEMISTRY METHOD 11/06/2024 9:46 AM EDT [facility] eGFR 58(L) >=60 mL/min/1. 73m2 LAB CHEMISTRY METHOD 11/06/2024 9:46 AM EDT [facility] Comment:Calculation based on the Chronic Kidney Disease Epidemiology Collaboration (CKD-EPI) equation refit without adjustment for race. BUN/Creatinine Ratio 26.7 LAB CHEMISTRY METHOD 11/06/2024 9:46 AM EDT [facility] Calcium 9.5 8.5 - 10.5 mg/dL LAB CHEMISTRY METHOD 11/06/2024 9:46 AM EDT [facility] Blood Venous blood specimen / Unknown Venipuncture / Unknown 11/06/2024 7:56 AM EDT 11/06/2024 8:54 AM EDT Eduardo Begum MD LAB BLOOD ORDERABLES Final Result [facility] [address] [place] [address], * ECG 12 lead (10/26/2024 10:56 AM EDT) Only the most recent of2 resultswithin the time period is included. Ventricular Rate ECG 82 BPM GEMUSE Atrial Rate 82 BPM GEMUSE P-R Interval 146 ms GEMUSE QRS Duration 86 ms GEMUSE Q-T Interval 404 ms GEMUSE QTc 472 ms GEMUSE P Wave [place] 67 degrees GEMUSE R [place] 41 degrees GEMUSE T [place] 65 degrees GEMUSE ECG Interpretation Normal sinus rhythm When compared with ECG of 27-SEP-2024 12:52, No significant change was found Confirmed by YOLANDA BEGUM ([id number]) on 10/31/2024 8:04:21 PM GEMUSE 10/26/2024 9:37 AM EDT 10/31/2024 8:04 PM EDT us Marie LUCIO ECG ORDERABLES Edited Result - Final GEMUSE * Microalbumin creatinine urine ratio (09/18/2024 8:51 AM EDT) Creatinine, Urine 126.0 mg/dL LAB CHEMISTRY METHOD 09/18/2024 11:16 AM EDT [facility] Microalb, Ur 27.2 0.0 - 29.0 mg/L LAB CHEMISTRY METHOD 09/18/2024 11:16 AM EDT [facility] Microalb/Creat Ratio 22 <30 mg/g creat LAB CHEMISTRY METHOD 09/18/2024 11:16 AM EDT [facility] Urine Urine specimen obtained by clean catch procedure / Unknown Non-blood Collection / Unknown 09/18/2024 8:51 AM EDT 09/18/2024 10:25 AM EDT us Siena Cha MD LAB URINE ORDERABLES Final Re sult Performing Organization Address City/[facility]/ZIP Co de Phone Number [facility] [address] [place] [address], * PSA total, free and complexed (09/18/2024 8:48 AM EDT) PSA 0.40 0.00 - 4.00 ng/mL LAB CHEMISTRY METHOD 09/18/2024 11:58 AM EDT [facility] PSA, Complexed 0.17 0.00 - 3.00 ng/mL LAB CHEMISTRY METHOD 09/18/2024 11:58 AM EDT [facility] PSA, Free 0.2 ng/mL LAB CHEMISTRY METHOD 09/18/2024 11:58 AM EDT [facility] PSA, Free Pct 50.0 >25.0 % LAB CHEMISTRY METHOD 09/18/2024 11:58 AM EDT [facility] Blood Venous blood specimen / Unknown Venipuncture / Unknown 09/18/2024 8:48 AM EDT 09/18/2024 10:15 AM EDT Narrative [facility] - 09/18/2024 11:58 AM EDT Free PSA is a calculated value. The diagnostic usefulness of % free PSA has not been established in patients with Total PSA below 2.6 or above 10 ng/mL. This test was performed using the Centaur Chemiluminescent method. PSA values obtained with other methods cannot be used interchangeably. Free PSA is a calculated value. The diagnostic usefulness of % free PSA has not been established in patients with Total PSA below 2.6 or above 10 ng/mL. This test was performed using the [employer] Chemiluminescent method. PSA values obtained with other methods cannot be used interchangeably. us Siena Cha MD LAB BLOOD ORDERABLES Final Re sult [facility] [address] [place] [address], * (ABNORMAL) Lipid panel with reflex to direct LDL (09/18/2024 8:48 AM EDT) Cholesterol 200 0 - 200 mg/dL LAB CHEMISTRY METHOD 09/18/2024 11:21 AM [facility] Triglycerides 108 0 - 150 mg/dL LAB CHEMISTRY METHOD 09/18/2024 11:21 AM EDT [facility] HDL 59 >=40 mg/dL LAB CHEMISTRY METHOD 09/18/2024 11:21 AM EDT [facility] LDL Calculated 119(H) 0 - 100 mg/dL LAB CHEMISTRY METHOD 09/18/2024 11:21 AM EDT [facility] Comment:Estimated LDL Calcul ated using equation: Total cholesterol - HDL cholesterol - (Triglycerides/5) VLDL Cholesterol Fco 21.6 mg/dL LAB CHEMISTRY METHOD 09/18/2024 11:21 AM EDT [facility] Non HDL Chol. (LDL+VLDL) 141 <145 mg/dL LAB CHEMISTRY METHOD 09/18/2024 11:21 AM EDT [facility] Chol/HDL Ratio 3.4 0.0 - 4.4 LAB CHEMISTRY METHOD 09/18/2024 11:21 AM EDT [facility] Blood Venous blood specimen / Unknown Venipuncture / Unknown 09/18/2024 8:48 AM EDT 09/18/2024 10:15 AM EDT us Siena Cha MD LAB BLOOD ORDERABLES Final Re sult Performing Organization Address [facility]/ZIP Co de Phone Number [facility] [address] [place] [address], [place] [phone] * (ABNORMAL) Hemoglobin A1c (09/18/2024 8:48 AM EDT) Hemoglobin A1C 6.8(H) <6.5 % LAB CHEMISTRY METHOD 09/18/2024 11:24 AM EDT [facility] Mean Bld Glu Estim. 148 mg/dL LAB CHEMISTRY METHOD 09/18/2024 11:24 AM EDT [facility] Blood Venous blood specimen / Unknown Venipuncture / Unknown 09/18/2024 8:48 AM EDT 09/18/2024 10:16 AM EDT us Siena Cha MD LAB BLOOD ORDERABLES Final Re sult [facility] [address] [place] [address], [place] [phone] * (ABNORMAL) Comprehensive metabolic panel (09/18/2024 8:48 AM EDT) Sodium 141 133 - 145 mmol/L LAB CHEMISTRY METHOD 09/18/2024 11:21 AM [facility] Potassium 4.3 3.5 - 5.5 mmol/L LAB CHEMISTRY METHOD 09/18/2024 11:21 AM [facility] Chloride 108 96 - 110 mmol/L LAB CHEMISTRY METHOD 09/18/2024 11:21 AM [facility] CO2 29 21 - 32 mmol/L LAB CHEMISTRY METHOD 09/18/2024 11:21 AM [facility] Anion Gap 4 3 - 11 LAB CHEMISTRY METHOD 09/18/2024 11:21 AM [facility] Glucose 126(H) 70 - 100 mg/dL LAB CHEMISTRY METHOD 09/18/2024 11:21 AM [facility] BUN 27(H) 5 - 25 mg/dL LAB CHEMISTRY METHOD 09/18/2024 11:21 AM [facility] Creatinine 1.21 0.70 - 1.30 mg/dL LAB CHEMISTRY METHOD 09/18/2024 11:21 AM [facility] eGFR 66 >=60 mL/min/1. 73m2 LAB CHEMISTRY METHOD 09/18/2024 11:21 AM [facility] Comment:Calculation based on the Chronic Kidney Disease Epidemiology Collaboration (CKD-EPI) equation refit without adjustment for race. BUN/Creatinine Ratio 22.3 LAB CHEMISTRY METHOD 09/18/2024 11:21 AM [facility] Calcium 9.4 8.5 - 10.5 mg/dL LAB CHEMISTRY METHOD 09/18/2024 11:21 AM [facility] AST (SGOT) 17 10 - 42 unit/L LAB CHEMISTRY METHOD 09/18/2024 11:21 AM [facility] ALT (SGPT) 26 10 - 60 unit/L LAB CHEMISTRY METHOD 09/18/2024 11:21 AM [facility] Alkaline Phosphatase 152(H) 42 - 121 unit/L LAB CHEMISTRY METHOD 09/18/2024 11:21 AM EDT [facility] Total Protein 7.2 6.0 - 8.0 g/dL LAB CHEMISTRY METHOD 09/18/2024 11:21 AM EDT [facility] Albumin 3.7 3.2 - 5.0 g/dL LAB CHEMISTRY METHOD 09/18/2024 11:21 AM EDT [facility] Total Bilirubin 1.0 0.0 - 1.4 mg/dL LAB CHEMISTRY METHOD 09/18/2024 11:21 AM EDT [facility] Blood Venous blood specimen / Unknown Venipuncture / Unknown 09/18/2024 8:48 AM EDT 09/18/2024 10:15 AM EDT us Siena Cha MD LAB BLOOD ORDERABLES Final Re sult [facility] [address] [place] [address], [place] [phone] from Last 3 Months Insurance [facility] Member Subscriber Plan / Payer (Ef fective 2024-Present) Name:Rogelio Culver III Relation to Subscriber:Self Name:Rogelio Culver III Payer ID:[id number] Group ID:Not on file Type:Not on file Address: [address] [address] [id number] Advance Directives Documents on File Type Date Recorded Patient Manager Retail Store Expl anation Advance Directives and Living Will 03/15/2024 2:32 PM Radha Reyes) Damian Andrade Care Prox y * Full Code - [...] Relationship Healthcare Agent Relationship Communication Radha (Fiance) Salgado Spouse Health Care Agent Care Teams Closet Organizer Relationship Specialty Start Date End Date Siena Cha MD [address] [facility] [address] [place], [place] PCP - General 05/16/14
--- OUTSIDE RECORDS SUMMARY | 2024-12-08 10:47 | XMS_ITS | Encounter Summary ---
Author Organization [facility] Address [address] [facility] [address] [place] [address] Encounters * CPT with Medical [facility] at [facility] on 2024-09-01 { reasonForRequest : REvisit , patientReports : Lower extremity swelling , denies :[ Increased work of breathing/labored with or without fever , Unable to speak in full sentences without distress , Discoloration of skin-cyanosis , Needs to sleep sitting up, can t catch breath , Shortness of breath in setting of confusion , Cough, fever greater than 2 days , Sputum increase , Cough , Shortness of breath with exertion ], chiefComplaints : Extremity Swelling , pmh : Arrhythmias (e.g., Atrial Fibrillation), Hypertension, Chronic Kidney Disease, Sleep Apnea, Gout, Osteoarthritis, COPD/Asthma, Hypothyroidism, Diabetes Mellitus Type 2 , allergies : Vicodin, Metformin , otherAllergies :null, painAssessment : , visitOutcome : , additionalComments : revisit from 08/31 \nCalled pt today, BP is stable 107/69 ,HR 63, denies dizziness or feeling lightheaded. \nPt reported he had 5 full urinals overnight. pt reported his legs have less swelling but his feet and toes remain edematous.\nPt denies shortness of breath or chestpain, \nPt would like a revisit for labs and volume assessment\iTu157 mEq/L\nK3.9 mEq/L\yOn079 mEq/L\niCa1.29 mmol/L\aUWY311 mmol/L\pWrq516 mg/dL\nBUN16 mg/dL\nCrea1.0 mg/dL \nRequest for visit on 09/01. Patient with CHF, lower extremity edema. Normal It Help Desk Analyst. Visit request for diuretic management. Takes 40mg Lasix PO daily. Given additional dose on 08/31 visit of 40mg PO. Assess weight, edema and renal function and consider adding additional lasix and repleting K as needed. } Pt chief complaint today of continued lower extremity edema. Pt states that he was seen by In provider on 08/31/24 due to in increase in his lower extremity edema. Pt was given 40 mg of oral furosemide during visit and had his POC blood work performed. Pt note that during the night had urinated multiple times with ease. Pt stets that this morning the lower extremity edema has reduced significantly with the size becoming more inline with his baseline. Pt does however state that his feet are still swollen. Pt states that he has also lost approx 3 pounds since the introduction of the extra 40 mg furosemide. Pt today is looking to have his lab work redrawn and his lower extremities reasse ssed. Pt denies any cp, sob.,NVD, dizziness or blurred vision. Pt allergies are noted in PCR form. Non neural focal exam, pt is able to ambulate appropriately with out the assistance of a walker andor person. Afebrile, vitals are WNL for the pt. Lungs present as clear bilaterally on auscultation.Benign abdominal assessment. Lower extremities noted reduced edema I the shins with no tenderness noted on palpation. Feet bilaterally are still edematous at 3+. No pain associated. Pulses are positive. Not hot to touch. Positive csm. POC blood work notes to potassium to be at 4.1 while his creatinine is at 1.28. [facility]inger [place]el[place] consulted, Pt is informed of findings. Pt is told to Continue use his regular course of furosemide 40 mg without the additional 40. Pt is instructed to contact his PCP at earliest convenience for follow up. Pt educated on red flag S&S and told to contact emergency services if any present. IV_(FLUIDS_AND/OR_MEDICATION), MEDICATION_IM, ORAL_MEDICATION, WOUND_CARE, ORTHOSTATIC_VITAL_SIGNS Written by Medical Chelly on 2024-09-01
--- OUTSIDE RECORDS SUMMARY | 2024-12-08 10:47 | XMS_ITS | Continuity of Care Document ---
Author Name [facility], Medical Address [address] [place] [address] Organization Unknown Address [address] [place] [address] Medications No known medications Problems No known problems
--- OUTSIDE RECORDS SUMMARY | 2024-12-08 10:48 | XMS_ITS | Continuity of Care Document ---
Author Name [facility], Medical Address [address] [place] [address] Organization Unknown Address [address] [place] [address] Medications No known medications Problems No known problems
--- OUTSIDE RECORDS SUMMARY | 2024-12-08 10:48 | XMS_ITS | Encounter Summary ---
Author Organization [facility] Address [address] [place] [address] Care Team Providers Care Manager Branch Name Role Phone Siena Cha MD Primary Care Provider Encounter Details Date Type Department Care Team (Late st Contact Info) Description 11/06/2024 Results Follow-Up [facility] - [facility] [address] [facility] [address] [place] [address] Marie Corral PA [place] [address] Social History Tobacco Use Types Packs/Day Years [...] Description 12/13/2024 2:40 PM EST Office Visit [facility] - [facility] [address] [facility] [address] [place] [phone] Marie Corral PA [address] [place] [address] [place] [id number] 12/25/2024 8:30 AM EST Office Visit Bariatric Surgery - [place] [address] [facility] [address] [place] [address] Brie Lynn MD [address] [place] [address] documented as of this encounter Visit Diagnoses Not on filedocumented in this encounter Care Teams Manager Branch Relationship Specialty Start Date End Date Siena Cha MD [address] [place] [address] [address] [place], [place] PCP - General 05/16/14 documented as of this encounter
--- OUTSIDE RECORDS SUMMARY | 2024-12-08 10:48 | XMS_ITS | Encounter Summary ---
Author Organization [facility] Address [address] [facility] [address] [place] [address] Encounters * CPT with Medical instED at [facility] on 2024-08-31 { reasonForRequest : pt notices swelling in legs upon standing, swelling goes down once he elevates his legs\n , patientReports : CHF history, increased swelling and edema , denies :[ History of Heart Attack, in the setting of active chest pain", Active Chest pain, radiates to neck jaw and or arm , Diaphoretic/Sweating", Describes as crushing , Sudden onset of nausea/Vomiting and shortness of breath. , Shortness of Breath , Unable to speak in full sentences without distress", Palpitations, feeling dizzy , Chest pain, increased fatigue , Weakne ss/tachycardia ], chiefComplaints : Extremity Swelling , pmh :"Arrhythmias (e.g., Atrial Fibrillation), Hypertension, Chronic Kidney Disease, Sleep Apnea, Gout, Osteoarthritis, COPD/Asthma, Hypothyroidism, Diabetes Mellitus Type 2 , allergies :"Vicodin, Metformin , otherAllergies :null, painAssessment : &quot ;, visitOutcome : , additionalComments : 64 y.o male complains of Extremity Swelling\n\nPt has swelling in his legs for 2 weeks more so than normal, has recently started taking Sotalol \nskin is tight and shiny. elevation is helping.\nBS 115 no higher than 130\nendorses mild dizziness when switching positions\non lasix taking daily and compliant \npatient is up3-4 lbs\ndenies any shortness of breath or chest pain. \nreviewed red flags\n\n\n\n\nI provided information on the mobile health provider response time and advised the patient and/or caregiver to monitor reported signs and symptoms. I discussed the warning signs of when to seek emergency care. } Dispatched to above address for leg swelling. On arrival patient 64 y/o M, met SC8 at the door, walking unassisted with normal gait, AOX4, airway patent, speaking in full sentences, good color, in noapparent distress. Patient reports ongoing bilateral lower leg edema for about 2 weeks. Patients vital signs checked. Secondary assessment, pupils PERRL, airway patent, no JVD, trachea midline, equalchest rise and fall, lungs clear all robles, abdomen soft non tender, no signs of trauma, good radial pulse, skin pink warm and dry, CMS intact all extremities, +3 pedal edema bilaterally. Patient states he has no pain, swelling goes down at night, has HX CHF, on Lasix, weight has been trending up unsure how much over last week but +2 pounds since yesterday, states he has spoke with It Architecture Consultant about this he believes it is caused by his prescribed Sotalol and is being scheduled for an ablation. [facility] contacted, spoke with Dr. Manzo, advised of patient complaints and exam findings. [facility] orders C hem8 be checked. Lab draw preformed, Chem8 checked, results uploaded. [facility] ordered 40mg Lasix and 20MeQs Potassium PO. 5 rights verified. Lasix and Potassium administered PO. Patient advised of home care, red flags and need for follow up. Patient has no additional questions or concerns at this time.SC8 clear. [facility]. IV_(FLUIDS_AND/OR_MEDICATION), MEDICATION_IM, ORAL_MEDICATION, WOUND_CARE, ORTHOSTATIC_VITAL_SIGNS Written by Medical instED on 2024-08-31
--- OUTSIDE RECORDS SUMMARY | 2024-12-08 10:48 | XMS_ITS | Clinical Summary ---
Author Organization [facility] Address [address] [address] Phone Care Team Providers Care Meal Room Hand Name Role Phone Siena Cha MD Primary Care Provider Allergies Active Allergy Reactions Criticality Noted Date Comments Ryder Inhibitors 10/21/2020 Canagliflozin 10/21/2020 Hydrocodone Throat Tightness Medium 10/21/2020 Lip swelling Metformin 10/21/2020 Medications albuterol 90 mcg/actuation inhaler inhale 2 puffs by mouth four times daily 3 Active allopurinol (ZYLOPRIM) 300 MG tablet Take 1 tablet by mouth every morning. 3 Active cholecalciferol (VITAMIN D3) 2,000 unit capsule Take 2 capsules by mouth every morning. 3 Active BREZTRI AEROSPHERE 160-9-4.8 mcg/actuation inhaler Inhale 2 puffs into the lungs 2 (two) times a day. 3 Active furosemide (LASIX) 40 MG tablet Take 1 tablet by mouth daily. Active levothyroxine (SYNTHROID, LEVOTHROID) 200 MCG tablet Take 1 tablet by mouth every morning. 3 Active losartan (COZAAR) 100 MG tablet Take 1 tablet by mouth every morning. 3 Active nitroglycerin (NITROSTAT) 0.3 MG SL tablet 3 Active pantoprazole (PROTONIX) 40 MG tablet Take 1 tablet by mouth every morning. 3 Active potassium chloride SA (KLOR-CON M) 20 MEQ ER tablet Take 2 tablets by mouth 2 (two) times a day. 3 Active JANUVIA 100 mg tablet Take 1 tablet by mouth every morning. 3 Active ursodioL (ACTIGALL) 300 mg capsule Take 1 capsule by mouth 2 (two) times a day. 3 Active vilazodone (VIIBRYD) 10 mg Tab Take 1 tablet by mouth every morning. 3 Active JARDIANCE 10 mg tablet Take 10 mg by mouth every morning. 3 Active therapeutic multivitamin tablet Take 1 tablet by mouth daily. Active Medication-Free TextIndications:A PAP machine Indications: A PAP machine Active sotaloL (BETAPACE) 120 MG tablet Take 120 mg by mouth 2 (two) times a day. Active rivaroxaban (XARELTO) 20 mg Tab Take by mouth daily with dinner. Active acetaminophen (TYLENOL) 500 MG tablet Take 2 tablets (1,000 mg total) by mouth every 6 (six) hours as needed for pain (specific location in comments) (knee pain). 240 tablet 5 5 Active Active Problems Problem Noted Date Diagnosed Date Primary osteoarthritis of both knees 10/16/2022 Assessment & Plan (09/28/2024 10:15 AM EDT): - Bilateral knee injections after signed informed consent -Acetaminophen 500 mg tablets max dose 2 tablets p.o. every 6 hours if needed for pain. Discussed with him certainly he may not need it that much and if he uses it every 8 or every 12 or some days does not need it, that is fine. He requests a prescription for this as it would be covered by his insurance. Prescription done. -Discontinued tramadol for system alert potential drug interaction with hydrocodone, to which he had allergic reaction with lip swelling -He is interested to try water-based physical therapy and he thinks he knows of a place in [place]. Order done. Assessment & Plan (09/28/2023 2:13 PM EDT): Osteoarthritis of both knees. Injected both knees with triamcinolone 40 mg each. Assessment & Plan (05/28/2023 11:58 AM EDT): Osteoarthritis in both knees. Injected both knees with triamcinolone 40 mg each. Assessment & Plan (10/16/2022 9:50 AM EDT): Degenerative osteoarthritis in both knees exacerbated by excess weight. He has lost close to 40 pounds after his bariatric surgery and hopefully will continue to lose weight. I injected both knees with 40 mg of Kenalog each. He can continue with Tylenol 650 mg 4 times a day. At his request I prescribed tramadol 50 mg 3 times a day as needed. Primary osteoarthritis involving multiple joints 10/16/2022 Assessment & Plan (09/28/2023 2:12 PM EDT): Osteoarthritis in multiple joints exacerbated by excess weight. He should continue with Tylenol 650 mg as needed. Continue with healthy eating and weight loss. Assessment & Plan (05/28/2023 11:59 AM EDT): Osteoarthritis in multiple other joints with no current swelling. Continue with Tylenol as needed. Advised him to work on losing more weight. Assessment & Plan (10/16/2022 9:51 AM EDT): Osteoarthritis in multiple other joints also exacerbated by excess weight. Encouraged him to to eat healthier and to continue losing weight. Encounters Date Type Department Care Team Description 09/28/2024 9:00 AM EDT Office Visit [facility] Rheumatology [address] [place] [address] [place] [address] Dana Squires DO Primary osteoarthritis of both knees (Primary Dx) 09/28/2024 Orders Only [facility] Rheumatology [address] [place] [address] [place] [address] Provider, MD Bobbi 09/28/2024 Telephone [facility] Rheumatology [address] [place] [address] [place] [address] Dana Squires DO Appointment 09/22/2024 Telephone [facility] Rheumatology [address] [place] [address] [place] [address] Alice Garcia CMA Appointment from Last 3 Months Family History Medical History Relation Comments Cancer Maternal Grandfather Cancer Maternal Grandmother Diabetes Mother Kidney disease Mother Relation Status Comments Maternal Grandfather Maternal Grandmother Mother Social History Tobacco Use Types Packs/Day Years Used Date Smoking Tobacco: Never Smokeless Tobacco: Never Tobacco Cessation:Counseling Given: Not Answered Alcohol Use Standard Drinks/Week Comments Never 0 (1 standard drink = 0.6 oz pur e alcohol) Education Answer Date Recorded Are you interested in more education? Not on esther e 08/27/2022 Are you concerned about learning? Not on file 08/27/2022 No 08/27/2022 No 08/27/2022 Digital Access Answer Date Recorded No 08/27/2022 No 08/27/2022 Reliable internet access at home? Not on file 08/27/2022 Device with a working camera? Not on file Sex and Gender Information Value Date Recorded Sex Assigned at Not on file Legal Sex Male 11:37 AM EDT Gender Identity Not on file Sexual Orientation Not on file Last Filed Vital Signs Vital Sign Reading Time Taken Comments Blood Pressure 126/70 09/28/2024 8:51 AM EDT Pulse 62 09/28/2024 8:51 AM EDT Temperature - - Respiratory Rate - - Oxygen Saturation 97% 09/28/2024 8:51 AM EDT Inhaled Oxygen Concentration - - Weight 143.8 kg (317 lb) 09/28/2024 8:51 AM EDT with shoes Height 170.2 cm (5' 7.01 ) 09/28/2024 8:51 AM ED T Body Mass Index 49.64 09/28/2024 8:51 AM EDT Plan of Treatment Upcoming Encounters Date Type Department Care Team (Late st Contact Info) Description 05/21/2025 8:00 AM EDT Office Visit [facility] Rheumatology [address] [place] [address] Dana Squires, DO [address] [facility], [address] [place] [address] Health Maintenance Due Date Last Done Comments CREATININE LEVEL 1959 POTASSIUM LEVEL 1959 DEPRESSION SCREENING 1971 HEPATITIS C SCREENING 06/09/1977 HIV ONE-TIME SCREENING (18-65 YEARS) 06/09/1977 SCREENING FOR DIABETES 06/09/1994 COLOGUARD 06/09/2004 COLONOSCOPY 06/09/2004 COLORECTAL CANCER SCREENING 06/09/2004 FIT TEST 06/09/2004 FOBT 06/09/2004 SIGMOIDOSCOPY 06/09/2004 VIRTUAL COLONOSCOPY 06/09/2004 COVID-19 VACCINE ( season) 2024 10/19/2023, 12/14/2022, 03/10/2022, Additional history exists TSH LEVEL 06/19/2025 06/19/2024, 03/21/2024 Adult Td,Tdap Booster 09/23/2026 09/23/2016 LIPID PANEL 09/18/2029 09/18/2024 RSV VACCINE Completed 10/17/2022 ZOSTER VACCINES Completed 08/06/2023, 05/09, 09/18/2020, Additional history exists INFLUENZA VACCINE Completed 09/22/2024, , 10/17/2022, Additional history exists PNEUMOCOCCAL VACCINES (50+ years) Completed 09/22/2024, 10/20/2018, 08/17/2017, Additional history exists SMOKING STATUS SCREENING (Once After 26 Yrs) Completed 09/28/2024 HEPATITIS A VACCINES Aged Out No long er eligible based on patient's age to complete this topic HIB VACCINES Aged Out No longer eligi ble based on patient's age to complete this topic MENINGOCOCCAL VACCINES (ACWY) Aged Out No longer eligible based on patient's age to complete this topic MENINGOCOCCAL VACCINES (B) Aged Out N o longer eligible based on patient's age to complete this topic Medical Devices Not on file Procedures Procedure Name Priority Date/Time Associated Diagnosis Comments OUTSIDE LAB Routine 09/18/2024 10:20 AM EDT from Last 3 Months Results * Outside Lab (09/18/2024 10:20 AM EDT) us Historical Provider LAB BLOOD ORDERABLES Fernanda l Result from Last [address] [place] [place] [address] [employer] MEDICARE REPLACEMENT MEDICARE REPLACEMENT MEDICARE REPLACEMENT MEDICARE RE[place]AC[place] [address] [address] MEDICARE REPLACEMENT [facility] MEDICARE REPLACEMENT Care Teams Meal Room Hand Relationship Specialty Start Date End Date Siena Cha MD [address] [place] [address] [place] [address] PCP - General Internal Medicine 02/11/23 Additional Source Comments The information contained in this document represents components of the legal health record. It is not the complete legal health record.[facility]
--- OUTSIDE RECORDS SUMMARY | 2024-12-08 10:48 | XMS_ITS | Data Portability ---
Author Organization [facility] Address [address] [place] [phone] Care Team Providers Care Physician Representative Name Role Phone HIM CCA OTHER NASREEN BARTON Primary Care Provider [phone] Assessment Encounter Date Assessment Date Assessment LastModified by Organization Details LastModified Time 09/01/2024 09/01/2024 I provided real -time medical direction via phone for this encounter, and was available for additional phone based assistance as needed. I have reviewed and agree with the Assessment and Plan as documented by the Senior Asic Design Engineer. We discussed the diagnostic uncertainty of home visits and the risk associated with this. In this case the patient and I felt this to be an acceptable and reasonable amount of risk given the benefit of avoiding an ED visit. The patient given the opportunity to ask questions. Advised if develops CP/severe SOB/turning blue/uncontrolle d n/v/d / AMS/ syncope/blue cold, numb or hot red, painful leg(s)/ hi fever to call 911- verbalized understanding of instructions to the medic [email or web address] Not available 09/01/2024 13:43:06 Plan of Treatment Reminders Order Date Submit Date Provider Last Modified By Organization Details Last Modified Time Details Appointments None recorded. Lab BMP, serum or plasma 2024 025 [facility], [address] [place] [address], [id number] 13:52:38 BMP, serum or plasma 2024 025 [facility], [address] [place] [address], [id number] 17:58:59 Referral None recorded. Procedures None recorded. Surgeries None recorded. Imaging None recorded. Medication Orders furosemide 40 mg tablet 2024 025 [email or web address] [id number], [address] [place], [place], [id number], 17:23:30 potassium chloride 20 mEq oral packet 2024 025 [email or web address] [facility][id number], [address] [place], [place], [phone], 17:23:30 Patient TargetsNo targets recorded. Patient InstructionsNo instructions recorded. Reason for Referral None Reported. Results Created Date Observation Date Name Description Value Unit Range Abnormal Flag Note LastModifiedBy Organization Detail LastModifiedTime Result Notes None recorded. Medical Equipment None Reported. Allergies Allergen ID Allergen Name Allergen Category Reaction Reaction Severity Criticality Documentation Date Start Date Code Code System Note Provider Name and Address Organization Details Recorded Time 48877 acetamino phen / hydrocodo ne medicatio n Not available Not available Not available 08/31/2024 44280 2 RxNorm is aller gic to hydro codon e- NOT aceta minop hen Ginger Montelongo MD [address] [place] [address],[address], [place], [phone], [place] [employer] [facility] [employer] 11:27:56 17353 metformin medicatio n Not available Not available Not available 08/31/2024 6809 RxNorm Not Available [facility] - production 14:28:19 Medications Name Sig Start Date Stop Date Status Note LastModified by Organization Details LastModified Time furosemide 40 mg tablet TAKE 1 TABLET BY MOUTH DAILY active Not Available Not Available No t Available levothyroxine 175 mcg tablet TAKE 1 TABLET BY MOUTH DAILY active Not Available Not Available No t Available albuterol sulfate 2.5 mg/3 mL (0.083 %) solution for nebulization USE 1 VIAL VIA NEBULIZER EVERY 8 HOURS NEEDED FOR WHEEZING active Not Available Not Available No t Available FreeStyle Lancets 28 gauge USE TO TEST BLOOD SUGAR TWICE DAILY active Not Available Not Available No t Available amlodipine 5 mg tablet TAKE 1 TABLET BY MOUTH DAILY active Not Available Not Available No t Available potassium chloride ER 20 mEq tablet,extend ed release(part/ cryst) TAKE 2 TABLETS BY MOUTH TWICE DAILY active Not Available Not Available No t Available aspirin 325 mg tablet,delaye d release TAKE 1 TABLET BY MOUTH EVERY DAY active Not Available Not Available No t Available pantoprazole 40 mg tablet,delaye d release TAKE 1 TABLET BY MOUTH DAILY active Not Available Not Available No t Available allopurinol 300 mg tablet TAKE 1 TABLET BY MOUTH DAILY active Not Available Not Available No t Available levothyroxine 200 mcg tablet TAKE 1 TABLET BY MOUTH EVERY DAY active Not Available Not Available No t Available albuterol sulfate HFA 90 mcg/actuation aerosol inhaler INHALE 2 PUFFS BY MOUTH FOUR TIMES DAILY NEEDED FOR SHORTNESS OF BREATH OR WHEEZING active Not Available Not Available No t Available losartan 100 mg tablet TAKE 1 TABLET BY MOUTH DAILY active Not Available Not Available No t Available loratadine 10 mg tablet TAKE 1 TABLET BY MOUTH DAILY active Not Available Not Available No t Available rosuvastatin 10 mg tablet TAKE 1 TABLET BY MOUTH EVERY DAY active Not Available Not Available No t Available Januvia 100 mg tablet TAKE 1 TABLET BY MOUTH EVERY DAY active Not Available Not Available No t Available FreeStyle Lite Strips USE TO TEST BLOOD SUGAR TWICE DAILY active Not Available Not Available No t Available cholecalcifer ol (vitamin D3) 50 mcg (2,000 unit) capsule TAKE 1 CAPSULE BY MOUTH ONCE A DAY. active Not Available Not Available No t Available vilazodone 10 mg tablet TAKE 1 TABLET BY MOUTH DAILY active Not Available Not Available No t Available Jardiance 10 mg tablet TAKE 1 TABLET BY MOUTH EVERY DAY IN THE MORNING active Not Available Not Available No t Available DEKAs Plus (folic acid) 200 mcg-1,000 mcg-10 mg chewable tablet CHEW AND SWALLOW 1 TABLET BY MOUTH DAILY active Not Available Not Available No t Available Breztri Aerosphere 160 mcg-9mcg-4.8m cg/actuation HFA aerosol inhaler INHALE 2 PUFFS BY MOUTH TWICE DAILY active Not Available Not Available No t Available BinaxNOW COVID-19 Ag Self Test kit TEST DIRECTED TODAY active Not Available Not Available No t Available Vitals Date Recorded Respiratory rate Oxygen saturation Oxygen saturation in Arterial blood by Pulse oximetry Heart rate Systolic And Diastolic Provider Name and Address Organization Details Last Updated DateTime 5 18 /min 100 % 100 % 75 /min 172/96 mm[Hg] Not Available [facility] - production 5 16:28:25 Date Recorded Heart rate Body weight Body temperature Respiratory rate Body height Oxygen saturation Oxygen saturation in Arterial blood by Pulse oximetry Systolic And Diastolic Provider Name and Address Organization Details Last Updated DateTime 5 67 /min 324810. 784 g 97.7 [degF] 19 /min 170.18 cm 100 % 100 % 134/86 mm[Hg] Not Available [facility] - production 5 11:22:19 Social History None recorded. Functional Status None recorded. Mental Status None recorded. Family History Nothing Reported. Medical History No medical history recorded. Past Encounters Encounter ID Performer Location Encounter Start Date Encounter Closed Date Diagnosis/Indication Diagnosis SNOMED-CT Code Diagnosis ICD10 Code Diagnosis IMO Codes Diagnosis Note [id number] [facility] [address] [phone] 08/31/2024 16:28:21 08/31/2024 18:19:26 Acute exacerbation of chronic congestive heart failure 694787513 I50.9 [id number] Patient with known CHF, unspecifie d type, followed by cardiology , no CKD, on Sotolol and has been on Lasix 40mg PO daily for years with recent increase in LE swelling and weight gain in past week with gain of 2 pounds since yesterday. BMP wnl except slighlty low K. Will give additional K, diurese with additional 40mg Lasix PO x1 now and request additional visit for tomorrow for labs, weight check and blood pressure check. Discussed red flag signs for which to seek higher level of care. [id number] [facility] [address] [phone] 09/01/2024 11:22:12 09/01/2024 14:12:17 Peripheral edema 205703000 R60.0 17278 Creatinine has bumped slightly from 1 yesterday to 1.28-other mar BMP is non-concer yusef. Do not want to risk RICARDO and he has no shortness of breath, weight is down, and legs are nearing baseline, would not increase Lasix again. Patient is okay with the plan.Advis ed follow-up with PCP on Wednesday-to call us over the weekend if he needs. Resume lasix 40 mg daily-star ting today/elev ate legs, low-salt diet-he agrees Health Concerns Section Related Observation LastModified by Organization Detai ls LastModified Time None Recorded Concern Status LastModified by Organization Details LastModified Time None Recorded Advance Directives Directive None Recorded Payers Insurance Date Sequence Insurance Name Policy Number Policy Lopez Covered Member ID Lopez Member ID Guarantor Name 09/01/2024 1 [facility] - DOS ON OR AFTER 2022 - DUAL ELIGIBLE - RESIDENTIAL OPTIONS AND ONE CARE (MEDICARE REPLACEMENT/AD VANTAGE - HMO) [facility] [id number] [facility] Notes Date Note Type Note Provider Name and Address Organization Details Recorded Time 08/31/2024 text/html ROS as noted in the [facility] Nurse Triage Notes (Jo Israel - RN): Reason For Request: pt notices swelling in legs upon standing, swelling goes down once he elevates his legs Patient Reports: CHF history, increased swelling and edema Denies: History of Heart Attack, in the setting of active chest pain Active Chest pain, radiates to neck jaw and or arm Diaphoretic/Sweatin g Describes as c rushing Sudden onset of nausea/Vomiting and shortness of breath. Shortness of Breath Unable to speak in full sentences without distress Palpitations, feeling dizzy Chest pain, increased fatigue Weakness/tachycardi a Chief Complaints: Extremity Swelling PMH: Arrhythmias (e.g., Atrial Fibrillation), Hypertension, Chronic Kidney Disease, Sleep Apnea, Gout, Osteoarthritis, COPD/Asthma, Hypothyroidism, Diabetes Mellitus Type 2 PMH Reviewed at 08/31/2024:28 Allergies Reviewed at 08/31/2024 14:28 Comments: 64 y.o male complains of Extremity Swelling Pt has swelling in his legs for 2 weeks more so than normal, has recently started taking Sotalol skin is tight and shiny. elevation is helping. BS 115 no higher than 130 endorses mild dizziness when switching positions on lasix taking daily and compliant patient is up 3-4 lbs denies any shortness of breath or chest pain. reviewed red flags I provided information on the mobile health provider response time and advised the patient and/or caregiver to monitor reported signs and symptoms. I discussed the warning signs of when to seek emergency care. Senior Asic Design Engineer Organization Information for Kristian Sifuentes Business Legal Name: [employer]. Address: [address] [place] [id number], Director Pharmacovigilance: Andi PULLIAMIA No.: [id number] Senior Asic Design Engineer POC Test Results from Kristian Sifuentes - ALS iSTAT Chem8+ (16:41:15) Na: 143mEq/L K: 3.9mEq/L Cl: 105mEq/L iCa: 1.29mmol/L TCO2: 27mmol/L Glu: 137mg/dL BUN: 16mg/dL Crea: 1.0mg/dL Hct: 40% Hb: 13.6g/dL Ammol/L Cartridge Number: [id number] Attachments uploaded as part of this test result can be found under Documents section. ................... ................... ................... ................... ................... ................... ................... ........ Senior Asic Design Engineer Note From Kristian Sifuentes: Dispatched to above address for leg swelling. On arrival patient 64 y/o M, met SC8 at the door, walking unassisted with normal gait, AOX4, airway patent, speaking in full sentences, good color, in no apparent distress. Patient reports ongoing bilateral lower leg edema for about 2 weeks. Patients vital signs checked. Secondary assessment, pupils PERRL, airway patent, no JVD, trachea midline, equal chest rise and fall, lungs clear all robles, [...] since yesterday, states he has spoke with Room Service Supervisor about this he believes it is caused by his prescribed Sotalol and is being scheduled for an ablation. [facility] contacted, spoke with Dr. Manzo, advised of patient complaints and exam findings. [facility] orders Chem8 be checked. Lab draw preformed, Chem8 checked, results uploaded. [facility] ordered 40mg Lasix and 20MeQs Potassium PO. 5 rights verified. Lasix and Potassium administered PO. Patient advised of home care, red flags and need for follow up. Patient has no additional questions or concerns at this time. SC8 clear. EOR. ................... ................... ................... ................... ................... ................... ................... ........ [facility] Consulted: Ivan Manzo ................... ................... ................... ................... ................... ................... ................... ........ Disposition: Fulfilled Mark Manzo MD [address] [facility],[address], [place], [address], [employer] 08/31/2024 17:25:27 09/01/2024 text/html ROS as noted in the [facility] Nurse Triage Notes (Maura Flowers - ADELE): Reason For Request: REvisit Patient Reports: Lower extremity swellingDenies: Increased work of breathing/labored with or without fever Unable to speak in full sentences without distress Discoloration of skin -cyanosis Needs to sleep sitting up, can t catch breath Shortness of breath in setting of confusion Cough, fever greater than 2 days Sputum increase Cough Shortness of breath with exertion Chief Complaints: Extremity SwellingPMH: Arrhythmias (e.g., Atrial Fibrillation), Hypertension, Chronic Kidney Disease, Sleep Apnea, Gout, Osteoarthritis, COPD/Asthma, Hypothyroidism, Diabetes Mellitus Type 2PMH Reviewed at 09/01/2024:Allergies Reviewed at 09/01/2024:Comments: revisit from 08/31Called pt today, BP is stable 107/69 ,HR 63, denies dizziness or feeling lightheaded.Pt reported he had 5 full urinals overnight. pt reported his legs have less swelling but his feet and toes remain edematous.Pt denies shortness of breath or chest pain,Pt would like a revisit for labs and volume nlknpysobdJs400 mEq/LK3.9 mEq/TOu306 mEq/LiCa1.29 mmol/VPTI609 mmol/TSvf302 mg/dLBUN16 mg/dLCrea1.0 mg/dLRequest for visit on 09/01. Patient with CHF, lower extremity edema. Normal Curtain Mender. Visit request for diuretic management. Takes 40mg Lasix PO daily. Given additional dose on 08/31 visit of 40mg PO. Assess weight, edema and renal function and consider adding additional lasix and repleting K as needed. Senior Asic Design Engineer Organization Information for Will Sellersfrancesca Legal Name: [facility]: [address] [place], [place] [address], Medical Director: Ramón Luna [facility] No.: [id number] Senior Asic Design Engineer POC Test Results from Will Sellers [facility] (11:17:07)pH: 7.383pH unitspCO2: 45.8ggCboJ0: 22.3mmHgNa: 142mmol/LK: 4.1mmol/LiCa: 1.16mmol/LCl: 110mmol/LTCO2: 26.2mEq/LHct: 40%Hb: 13.7g/dLGlu: 117mg/dLLac: 0.41mmol/LCr: 1.28mg/dLBUN: 15mg/dLAmmol/LHCO3: 27.3mmol/LAttachmen ts uploaded as part of this test result can be found under Documents section. ................... ................... ................... ................... ................... ................... ................... ........ Senior Asic Design Engineer Note From Will Sellers: Pt chief complaint today of continued lower [...] lab work redrawn and his lower extremities reassessed. Pt denies any cp, sob.,NVD, dizziness or blurred vision. Pt allergies are noted in PCR form. Non neural focal exam, pt is able to ambulate appropriately with out the assistance of a walker and or person. Afebrile, vitals are WNL for the pt. Lungs present as clear bilaterally on auscultation. Benign abdominal assessment. Lower extremities noted reduced edema I the shins with no tenderness noted on palpation. Feet bilaterally are still edematous at 3+. No pain associated. Pulses are positive. Not hot to touch. Positive csm. POC blood work notes to potassium to be at 4.1 while his creatinine is at 1.28. [facility] Ginger Montelongo consulted, Pt is informed of findings. Pt is told to Continue use his regular course of furosemide 40 mg without the additional 40. Pt is instructed to contact his PCP at earliest convenience for follow up. Pt educated on red flag S&S and told to contact emergency services if any present. [facility] Lab Orders: BMP, serum or plasma: Performed ................... ................... ................... ................... ................... ................... ................... ........ [facility] Consulted: Ginger Montelongo ................... ................... ................... ................... ................... ................... ................... ........ Disposition: Fulfilled SEGMD: As above. Patient reports his weight was 305 yesterday and he was 302 for us today with close. His baseline weight is 297-305 he states he is about to start on Zepbound for diabetes control and weight loss. Ginger Montelongo MD [address] [facility],[address], [place], [address], [employer] [facility] [employer] 09/01/2024 13:45:17
== END 2024-12-08 10:56 | disposition home or self-care (01) ==
LOC: HO.PMC 09:39
PROVIDERS: PCP Internal Medicine; Visit Provider Internal Medicine
DX: M17.0 Bilateral primary osteoarthritis of knee (principal)
CPT/HCPCS: 20610

== ENCOUNTER → 2024-12-08 09:39 | Outpatient (BNVA) | payer OTHER, SELFPAY | PROVIDERS: PCP Internal Medicine; Visit Provider Internal Medicine | DX: M17.0 Bilateral primary osteoarthritis of knee (principal); Z79.52 Long term (current) use of systemic steroids | CPT/HCPCS: 20610; J3301 ==

== ENCOUNTER 2024-12-11 09:21 | Outpatient (AMB) | payer OTHER, SELFPAY ==
[2024-12-11 09:27] VITALS: BP 116/78; PULSE 83; RESP 16; O2SAT 93; BMI 46.5
--- NOTE | 2024-12-11 09:27 | MHC.OFFVIS ---
Vital Signs 12/11/24 09:27 Height 5 ft 7 in Weight 297 lb BMI 46.5 BP 116/78 Blood Pressure Location Lt brachial Position Sitting Respiration 16 Pulse 83 Pulse Source Pulse Oximeter Pulse Oximetry (%) 93 Oxygen Delivery Method Room Air Intake Visit Reasons: Left knee injection Assembler Deck And Hull Required: No Art Psychotherapist Or Therapist: Art Psychotherapist Or Therapist Present Accompanied by: Chace Win Allergies hydrocodone (From VICODIN) Allergy (Severe, Verified 12/11/24 09:30) ANGIOEDEMA metformin (METFORMIN) Allergy (Intermediate, Verified 12/11/24 09:30) ITCHING/HEADACHE, rash Medication List - Last Reconciled 12/11/24 by Idalmis Negron LPN albuterol sulfate 2.5 mg (3 mL) inhalation Q8H PRN 30 days albuterol sulfate 90 mcg/actuation 2 inhalations inhalation Q6H PRN 30 days allopurinol 300 mg PO DAILY kjggbgwlmw-tunonhxq-cvynjuxibm 160-9-4.8 mcg/actuation (Breztri Aerosphere) 2 inhalations PO BID cholecalciferol (vitamin D3) 50 mcg PO DAILY CPAP (CPAP Machine/Device) As directed diclofenac sodium 1% 2 grams topical QID empagliflozin (Jardiance) 10 mg PO QAM furosemide 40 mg PO DAILY humidifiers As directed isosorbide mononitrate ER 30 mg PO DAILY levothyroxine 175 mcg PO DAILY loratadine 10 mg PO DAILY losartan 100 mg PO DAILY multivit-mins 56-FA-vit K-Q10 200 mcg-1,000 mcg-10 mg (DEKAs Plus (folic acid)) 1 tab PO DAILY nitroglycerin 0 mg sublingual oxygen-air delivery systems As directed potassium chloride ER 40 mEq PO BID sitagliptin phosphate (Januvia) 100 mg PO DAILY vilazodone (Viibryd) 10 mg PO DAILY HPI HPI Left knee injection: Details: Patient presents for scheduled procedure. Denies any recent cough, cold, infection, fever or other significant changes in medical history since last office visit. [facility] Medical History (Updated 01/12/24 @ 12:39 by Yony Mena MD) Pre-op chest exam Hypothyroidism, postablative Arthritis GERD (gastroesophageal reflux disease) Type 2 diabetes mellitus Glaucoma Asthma Anxiety Gout Depression Graves disease Super obesity Obstructive sleep apnea COPD (chronic obstructive pulmonary disease) Surgical History (Updated 06/12/21 @ 13:55 by Janeth Kunz PA-C) History of cardiac cath (~2015) History of eye surgery (~1997) History of umbilical hernia repair (~1997) History of laparoscopic adjustable gastric banding (~2006) History of Achilles tendon repair History of removal of laparoscopic gastric banding device (~2019) Family History Father No problems noted. Mother COPD (chronic obstructive pulmonary disease) Asthma Brother No problems noted. Brother No problems noted. Sister No problems noted. Daughter No problems noted. Daughter No problems noted. Daughter No problems noted. Social History Alcohol intake: former Patient Tobacco Use Status: Never used Tobacco Substance Use Type: Former Substance User Physical Exam Vital Signs: Last Vital Signs Pulse 83 12/11/24 09:27 Resp 16 12/11/24 09:27 BP 116/78 12/11/24 09:27 Pulse Ox 93 12/11/24 09:27 Oxygen Delivery Method Room Air 12/11/24 09:27 BMI result Body Mass Index 46.5 Office Procedures AMB Joint Injection/Aspiration Joint Injection/Aspiration Primary Site: left knee Prep: site was prepped using sterile technique Injected: 40 mg of, Kenalog, with 3 mL of (ropivacaine 0.25%) and in the joint Approach Used: medial parapatellar Procedure: The patient tolerated the procedure well and but had some pain with the injection Coding 41994 - Large joint Procedure code (CPT) selection complete Assessment & Plan Assessment & Plan (1) Bilateral primary osteoarthritis of knee: Code(s): M17.0 - Bilateral primary osteoarthritis of knee Category: Medical Plan Patient is status post left knee injection. Patient tolerated procedure well and was discharged home in stable condition with discharge instructions. All questions were answered. We will follow-up via telephone or in clinic to assess response to therapy. A follow-up appointment was made during today's visit. Coding Level of Care Code Procedure Only Diagnoses Bilateral primary osteoarthritis of knee M17.0 CPT Codes Coding - 47725 Large joint: 83941 - Large joint ([id number])
--- OUTSIDE RECORDS SUMMARY | 2024-12-11 10:28 | XMS_ITS | Encounter Summary ---
Author Organization [facility] Address [address] [place] [address] Care Team Providers Care Buttonhole Maker Name Role Phone Siena Cha MD Primary Care Provider [phone] Encounter Details Date Type Department Care Team (Late st Contact Info) Description 06/29/2024 Lab Requisition [facility] - Main Lab [address] [facility] [place] [place] [address] Siena Cha MD [address] [place] [address] [place] [address] Chronic kidney disease, stage 3 unspecified (CMS/HCC [...] Description 12/13/2024 2:40 PM EST Office Visit [facility] [address] [facility] [address] [place] [phone] aMrie Corral PA [address] [place] [address] [place] [phone] 12/25/2024 8:30 AM EST Office Visit Bariatric Surgery - [place] [address] [facility] [address] [place] [phone] Brie Lynn MD [address] [place] [phone] Scheduled Orders Name Type Priority Associated Diagnoses Orde r Schedule Comprehensive metabolic panel Lab Routine Chronic kidney disease, stage 3 unspecified ([facility] [place]24, [facility] V28) Other proteinuria Ordered: 06/29/2024 Lipid panel with reflex to direct LDL Lab Routine Pure hypercholesterolemia, unspecified Ordered: 06/29/2024 Microalbumin creatinine urine ratio Lab Routine Ordered: 025 Hemoglobin A1c Lab Routine Type 2 diabetes mellitus without complications ([facility] V[facility], [facility] V28) Ordered: 06/29/2024 PSA total, free and complexed, diagnostic Lab Routine Benign prostatic hyperplasia without lower urinary tract symptoms Ordered: 06/29/2024 documented as of this encounter Visit Diagnoses Diagnosis Chronic kidney disease, stage 3 unspecified ([facility] V[facility], [facility] V28) Other proteinuria Pure hypercholesterolemia, unspecified Type 2 diabetes mellitus without complications ([facility] V24, [facility] V28) Benign prostatic hyperplasia without lower urinary tract symptoms documented in this encounter Care Teams Buttonhole Maker Relationship Specialty Start Date End Date Siena Cha MD [address] [place] [address] PCP - General 05/16/14 documented as of this encounter
--- OUTSIDE RECORDS SUMMARY | 2024-12-11 10:28 | XMS_ITS | Clinical Summary ---
Author Organization LL [facility] Address [address] [place] [address] Phone Care Team Providers Care Barge Engineer Name Role Phone Siena Cha MD Primary Care Provider [phone] Allergies Active Allergy Reactions Criticality Noted Date [...] Problem Noted Date Diagnosed Date Atrial flutter ([facility] V24, [facility] V28) 2024 Overview (04/03/2024): New atrial flutter [...] (BMI) of 45.0 to 49.9 in adult ([facility] V24, [facility] V28) 01/24/2024 Assessment & Plan (08/17/2024 9:04 [...] Department Care Team Description 11/06/2024 Results Follow-Up [facility] Cardiology [facility] [address] [address] [place] [address] Marie Corral PA 10/26/2024 9:40 AM EDT Office Visit [facility] Cardiology [facility] [address] [place] [address] Marie Corral PA Paroxysmal atrial fibrillation (CMS/HCC V24, CMS/HCC V28) (Primary Dx); Obstructive sleep apnea; CHF (congestive heart failure), NYHA class II, chronic, diastolic (CMS/HCC V24, CMS/HCC V28); Typical atrial flutter (CMS/HCC V24, CMS/HCC V28); Class 3 severe obesity with body mass index (BMI) of 45.0 to 49.9 in adult (CMS/HCC V24, CMS/HCC V28) 10/04/2024 Telephone [facility] Cardiology [facility] [address] [place] [address] Eduardo Begum MD 10/03/2024 Telephone [facility] [address] [place] [address] Silvano Lake MD 09/27/2024 1:00 PM EDT Consult [facility] Cardiology [facility] [address] [place] [address] Eduardo Begum MD Atrial flutter, unspecified type (CMS/HCC V24, CMS/HCC V28) (Primary Dx); Paroxysmal atrial fibrillation (CMS/HCC V24, CMS/HCC V28) 09/22/2024 12:30 PM EDT Office Visit [facility] [place] [facility] [address] [place] [address] Brie Lynn MD Class 3 severe obesity with body mass index (BMI) of 45.0 to 49.9 in adult (CMS/HCC V24, CMS/HCC V28) (Primary Dx); History of sleeve gastrectomy from Last 3 Months Surgical History Surgery Date Site/Laterality Comments OTHER SURGICAL HISTORY PROCEDURE: NE LAPS GASTRIC RESTRICTIVE PROCEDURE PLACE DEVICE OTHER SURGICAL HISTORY PROCEDURE: HISTORY OTHER; COMMENT: lap removal of gastric band OTHER SURGICAL HISTORY Right PROCEDURE: HISTORY OTHER; COMMENT: achilles repair OTHER SURGICAL HISTORY PROCEDURE: NE RPR UMBILICAL HRNA 5 YRS/> REDUCIBLE; COMMENT: [...] (diabetes montrell itus, type 2) ([facility]) Morbid obesity (CMS/HCC V24, CMS/[facility] V28) 04/02/2011 DX:Morbid obesity ([facility]) Obstructive sleep apnea 04/02/2011 DX:Obstr uctive sleep apnea Hx of laparoscopic gastric banding 04/02/2011 DX:Hx of laparoscopic gastric banding Leg edema 04/02/2011 DX:Leg edema CKD (chronic kidney disease) 04/02/2011 DX: CKD (chronic kidney disease) Gout, unspecified 04/02/2011 DX:Gout, unspe cified Unspecified hypothyroidism 04/02/2011 DX:Un specified hypothyroidism DM (diabetes mellitus), type 2 with renal complications ([facility] V24, [facility] V28) 04/02/2011 DX:DM (diabetes mellitus), t ype 2 with renal complications ([facility]) CHF (congestive heart failur e) ([facility] V24, [facility] V28) DX:CHF (congestive heart fa ilure) ([facility]) Glaucoma DX:Glaucoma PTSD (post-traumatic stress disorder) DX:PTSD [...] Description 12/13/2024 2:40 PM EST Office Visit [facility] [address] [facility] [address] [place] [address] Marie Corral PA [address] [place] [address] 12/25/2024 8:30 AM EST Office Visit [facility] [place] [facility] [address] [place] [address] Brie Lynn MD [address] [place] [address] Health Maintenance Due Date Last Done [...] sec LAB COAGULATION METHOD 11/06/2024 9:[address] [facility] INR 2.2 LAB COAGULATION METHOD 11/06/2024 9:[address] [facility] Blood Venous blood specimen / Unknown Venipuncture / Unknown 11/06/2024 7:56 AM EDT 11/06/2024 8:55 AM EDT Eduardo Begum MD LAB BLOOD ORDERABLES Final Result [facility] [address] [place] [address], * (ABNORMAL) Complete blood count (11/06/2024 7:56 AM EDT) [facility] WBC 7.6 4.8 - 10.8 K/mcL LAB HEMETOLOGY METHOD 11/06/2024 9:07 AM EDT [facility] RBC 5.20 4.50 - 5.50 M/mcL LAB HEMETOLOGY METHOD 11/06/2024 9:[address] [facility] Hemoglobin 13.4(L) 13.5 - 17.5 g/dL LAB HEMETOLOGY METHOD 11/06/2024 9:[address] [facility] Hematocrit 40.5(L) 42.0 - 54.0 % LAB HEMETOLOGY METHOD 11/06/2024 9:[address] [facility] MCV 77.3(L) 79.0 - 98.0 FL LAB HEMETOLOGY METHOD 11/06/2024 9:[address] [facility] MCH 25.6(L) 27.0 - 32.0 pcg LAB HEMETOLOGY METHOD 11/06/2024 9:[address] [facility] MCHC 33.1 32.0 - 37.0 g/dL LAB HEMETOLOGY METHOD 11/06/2024 9:[address] [facility] RDW 14.5 11.0 - 15.0 % LAB HEMETOLOGY METHOD 11/06/2024 9:[address] [facility] Platelets 267 130 - 400 K/mcL LAB HEMETOLOGY METHOD 11/06/2024 9:07 AM EDT [facility] MPV 11.8(H) 7.0 - 11.0 FL LAB HEMETOLOGY METHOD 11/06/2024 9:07 AM EDT [facility] NRBC 0.0 <1.0 % LAB HEMETOLOGY METHOD 11/06/2024 9:07 AM EDT [facility] NRBC Absolute 0.00 <0.10 K/mcL LAB HEMETOLOGY METHOD 11/06/2024 9:07 AM EDT [facility] Blood Venous blood specimen / Unknown Venipuncture / Unknown 11/06/2024 7:56 AM EDT 11/06/2024 8:55 AM EDT Eduardo Begum MD LAB BLOOD ORDERABLES Final Result [facility] [address] [place] [address], * (ABNORMAL) Basic metabolic panel (11/06/2024 7:56 AM EDT) Sodium 141 133 - 145 mmol/L LAB CHEMISTRY METHOD 11/06/2024 9:[address] [facility] Potassium 3.7 3.5 - 5.5 mmol/L LAB CHEMISTRY METHOD 11/06/2024 9:[address] [facility] Chloride 106 96 - 110 mmol/L LAB CHEMISTRY METHOD 11/06/2024 9:[address] [facility] CO2 29 21 - 32 mmol/L LAB CHEMISTRY METHOD 11/06/2024 9:[address] [facility] Anion Gap 6 3 - 11 LAB CHEMISTRY METHOD 11/06/2024 9:[address] [facility] Glucose 155(H) 70 - 100 mg/dL LAB CHEMISTRY METHOD 11/06/2024 9:[address] [facility] BUN 36(H) 5 - 25 mg/dL LAB CHEMISTRY METHOD 11/06/2024 9:46 AM EDT [facility] Creatinine 1.35(H) 0.70 - 1.30 mg/dL LAB CHEMISTRY METHOD 11/06/2024 9:46 AM EDT [facility] eGFR 58(L) >=60 mL/min/1. 73m2 LAB CHEMISTRY METHOD 11/06/2024 9:46 AM EDT [facility] Comment:Calculation based on the Chronic Kidney Disease Epidemiology Collaboration (CKD-EPI) equation refit without adjustment for race. BUN/Creatinine Ratio 26.7 LAB CHEMISTRY METHOD 11/06/2024 9:46 AM EDT [facility] Calcium 9.5 8.5 - 10.5 mg/dL LAB CHEMISTRY METHOD 11/06/2024 9:46 AM EDT [facility] Blood Venous blood specimen / Unknown Venipuncture / Unknown 11/06/2024 7:56 AM EDT 11/06/2024 8:54 AM EDT Eduardo Begum MD LAB BLOOD ORDERABLES Final Result [facility] [address] [place] [address], * ECG 12 lead (10/26/2024 10:56 AM EDT) Only the most recent of2 resultswithin the time period is included. Ventricular Rate ECG 82 BPM GEMUSE Atrial Rate 82 BPM GEMUSE P-R Interval 146 ms GEMUSE QRS Duration 86 ms GEMUSE Q-T Interval 404 ms GEMUSE QTc 472 ms GEMUSE P Wave Gilbert 67 degrees GEMUSE R Gilbert 41 degrees GEMUSE T Gilbert 65 degrees GEMUSE ECG Interpretation Normal sinus [...] LAB CHEMISTRY METHOD 09/18/2024 11:16 AM EDT [facility] Microalb, Ur 27.2 0.0 - 29.0 mg/L LAB CHEMISTRY METHOD 09/18/2024 11:16 AM EDT [facility] Microalb/Creat Ratio 22 <30 mg/g creat LAB CHEMISTRY METHOD 09/18/2024 11:16 AM EDT [facility] Urine Urine specimen obtained by clean catch procedure / Unknown Non-blood Collection / Unknown 09/18/2024 8:51 AM EDT 09/18/2024 10:25 AM EDT us Siena Cha MD LAB URINE ORDERABLES Final Re sult Performing Organization Address City/[facility]/ZIP Co de Phone Number [facility] [address] [place] [address], * PSA total, free and complexed (09/18/2024 8:48 AM EDT) PSA 0.40 0.00 - 4.00 ng/mL LAB CHEMISTRY METHOD 09/18/2024 11:58 AM EDT [facility] PSA, Complexed 0.17 0.00 - 3.00 ng/mL LAB CHEMISTRY METHOD 09/18/2024 11:58 AM EDT [facility] PSA, Free 0.2 ng/mL LAB CHEMISTRY METHOD 09/18/2024 11:58 AM EDT [facility] PSA, Free Pct 50.0 >25.0 % LAB CHEMISTRY METHOD 09/18/2024 11:58 AM EDT [facility] Blood Venous blood specimen / Unknown Venipuncture / Unknown 09/18/2024 8:48 AM EDT 09/18/2024 10:15 AM EDT Narrative [facility] - 09/18/2024 11:58 AM EDT [...] MD LAB BLOOD ORDERABLES Final Re sult [facility] [address] [place] [address], * (ABNORMAL) Lipid panel with reflex to direct LDL (09/18/2024 8:48 AM EDT) Cholesterol 200 0 - 200 mg/dL LAB CHEMISTRY METHOD 09/18/2024 11:[address] [facility] Triglycerides 108 0 - 150 mg/dL LAB CHEMISTRY METHOD 09/18/2024 11:21 AM EDT [facility] HDL 59 >=40 mg/dL LAB CHEMISTRY METHOD 09/18/2024 11:21 AM EDT [facility] LDL Calculated 119(H) 0 - 100 mg/dL LAB CHEMISTRY METHOD 09/18/2024 11:21 AM EDT [facility] Comment:Estimated LDL Calcul ated using equation: Total cholesterol - HDL cholesterol - (Triglycerides/5) VLDL Cholesterol Fco 21.6 mg/dL LAB CHEMISTRY METHOD 09/18/2024 11:21 AM EDT [facility] Non HDL Chol. (LDL+VLDL) 141 <145 mg/dL LAB CHEMISTRY METHOD 09/18/2024 11:21 AM EDT [facility] Chol/HDL Ratio 3.4 0.0 - 4.4 LAB CHEMISTRY METHOD 09/18/2024 11:21 AM EDT [facility] Blood Venous blood specimen / Unknown Venipuncture / Unknown 09/18/2024 8:48 AM EDT 09/18/2024 10:15 AM EDT us Siena Cha MD LAB BLOOD ORDERABLES Final Re sult Performing Organization Address [facility]/ZIP Co de Phone Number [facility] [address] [place] [address], [place] [phone] * (ABNORMAL) Hemoglobin A1c (09/18/2024 8:48 AM EDT) Hemoglobin A1C 6.8(H) <6.5 % LAB CHEMISTRY METHOD 09/18/2024 11:24 AM EDT [facility] Mean Bld Glu Estim. 148 mg/dL LAB CHEMISTRY METHOD 09/18/2024 11:24 AM EDT [facility] Blood Venous blood specimen / Unknown Venipuncture / Unknown 09/18/2024 8:48 AM EDT 09/18/2024 10:16 AM EDT us Siena Cha MD LAB BLOOD ORDERABLES Final Re sult [facility] [address] [place] [address], [place] [phone] * (ABNORMAL) Comprehensive metabolic panel (09/18/2024 8:48 AM EDT) Sodium 141 133 - 145 mmol/L LAB CHEMISTRY METHOD 09/18/2024 11:[address] [facility] Potassium 4.3 3.5 - 5.5 mmol/L LAB CHEMISTRY METHOD 09/18/2024 11:[address] [facility] Chloride 108 96 - 110 mmol/L LAB CHEMISTRY METHOD 09/18/2024 11:[address] [facility] CO2 29 21 - 32 mmol/L LAB CHEMISTRY METHOD 09/18/2024 11:[address] [facility] Anion Gap 4 3 - 11 LAB CHEMISTRY METHOD 09/18/2024 11:[address] [facility] Glucose 126(H) 70 - 100 mg/dL LAB CHEMISTRY METHOD 09/18/2024 11:[address] [facility] BUN 27(H) 5 - 25 mg/dL LAB CHEMISTRY METHOD 09/18/2024 11:[address] [facility] Creatinine 1.21 0.70 - 1.30 mg/dL LAB CHEMISTRY METHOD 09/18/2024 11:[address] [facility] eGFR 66 >=60 mL/min/1. 73m2 LAB CHEMISTRY METHOD 09/18/2024 11:[address] [facility] Comment:Calculation based on the Chronic Kidney Disease Epidemiology Collaboration (CKD-EPI) equation refit without adjustment for race. BUN/Creatinine Ratio 22.3 LAB CHEMISTRY METHOD 09/18/2024 11:[address] [facility] Calcium 9.4 8.5 - 10.5 mg/dL LAB CHEMISTRY METHOD 09/18/2024 11:[address] [facility] AST (SGOT) 17 10 - 42 unit/L LAB CHEMISTRY METHOD 09/18/2024 11:[address] [facility] ALT (SGPT) 26 10 - 60 unit/L LAB CHEMISTRY METHOD 09/18/2024 11:[address] [facility] Alkaline Phosphatase 152(H) 42 - 121 unit/L LAB CHEMISTRY METHOD 09/18/2024 11:21 AM EDT [facility] Total Protein 7.2 6.0 - 8.0 g/dL LAB CHEMISTRY METHOD 09/18/2024 11:21 AM EDT [facility] Albumin 3.7 3.2 - 5.0 g/dL LAB CHEMISTRY METHOD 09/18/2024 11:21 AM EDT [facility] Total Bilirubin 1.0 0.0 - 1.4 mg/dL LAB CHEMISTRY METHOD 09/18/2024 11:21 AM EDT [facility] Blood Venous blood specimen / Unknown Venipuncture / Unknown 09/18/2024 8:48 AM EDT 09/18/2024 10:15 AM EDT us Siena Cha MD LAB BLOOD ORDERABLES Final Re sult [facility] [address] [place] [address], [place] [phone] from Last 3 Months Insurance [facility] OPT[employer] Member Subscriber Plan / Payer (Ef fective 2024-Present) Name:Rogelio Culver III Relation to Subscriber:Self Name:Rogelio Culver III Payer ID:[id number] Group ID:Not on file Type:Not on file Address: [place] [address] [address] Advance Directives Documents on File Type Date Recorded Patient Toggle Press Operator Expl anation Advance Directives and Living Will 03/15/2024 2:32 PM Radha Reyes) Damian nAdrade Care Prox y * Full Code - [...] Salgado Spouse Health Care Agent Care Teams Barge Engineer Relationship Specialty Start Date End Date Siena Cha MD [address] [facility] [address] [place], [place] PCP - General 05/16/14
--- OUTSIDE RECORDS SUMMARY | 2024-12-11 10:29 | XMS_ITS | Encounter Summary ---
Author Organization [facility] Address [address] [place] [address] Care Team Providers Care Roof Bolting Coal Miner Name Role Phone Siena Cha MD Primary Care Provider [phone] Encounter Details Date Type Department Care Team (Late st Contact Info) Description 11/06/2024 Results Follow-Up [facility] - [facility] [address] [facility] [address] [place] [address] Marie Corral PA [place] [address] Social History Tobacco Use Types [...] Description 12/13/2024 2:40 PM EST Office Visit [facility] - [facility] [address] [facility] [address] [place] [address] Marie Corral PA [address] [place] [address] [place] [phone] 12/25/2024 8:30 AM EST Office Visit Bariatric Surgery - [place] [address] [facility] [address] [place] [address] Brie Lynn MD [address] [place] [address] documented as of this encounter Visit Diagnoses Not on filedocumented in this encounter Care Teams Roof Bolting Coal Miner Relationship Specialty Start Date End Date Siena Cha MD [address] [place] [address] [address] [place], [place] PCP - General 05/16/14 documented as of this encounter
--- OUTSIDE RECORDS SUMMARY | 2024-12-11 10:29 | XMS_ITS | Data Portability ---
Author Organization [facility] [employer] [facility], [facility] Address [address] [place] [phone] Care Team Providers Care Psychiatric Cns Name Role Phone HIM CCA OTHER NASREEN BARTON Primary Care Provider [phone] Assessment Encounter Date Assessment Date Assessment LastModified by Organization Details LastModified Time 09/01/2024 09/01/2024 I provided real -time medical direction via phone for this encounter, and was available for additional phone based assistance as needed. I have reviewed and agree with the Assessment and Plan as documented by the Food And Beverage Cashier. We discussed the diagnostic uncertainty of home [...] verbalized understanding of instructions to the medic [email or web address] Not available 09/01/2024 13:43:06 Plan of Treatment Reminders Order Date Submit Date Provider Last Modified By Organization Details Last Modified Time Details Appointments None recorded. Lab BMP, serum or plasma 2024 025 [facility], [address] [place] [address], [phone] 13:52:38 BMP, serum or plasma 2024 025 [facility], [address] [place] [address], [phone] 17:58:59 Referral None recorded. Procedures None recorded. Surgeries None recorded. Imaging None recorded. Medication Orders furosemide 40 mg tablet 2024 025 [email or web address] [id number], [address] [place], [place], [phone], 17:23:30 potassium chloride 20 mEq oral packet 2024 025 [email or web address] [id number], [address], [place], [phone], 17:23:30 Patient TargetsNo targets recorded. Patient InstructionsNo [...] Name and Address Organization Details Recorded Time 70398 acetamino phen / hydrocodo ne medicatio n Not available Not available Not available 08/31/2024 13199 2 RxNorm is aller gic to hydro codon e- NOT aceta minop hen Ginger Montelongo MD [address] [place] [address],[address], [place], [address], [place] [employer] 11:27:56 31426 metformin medicatio n Not available Not available [...] Details Last Updated DateTime 5 67 /min 799160. 784 g 97.7 [degF] 19 /min 170.18 [...] ICD10 Code Diagnosis IMO Codes Diagnosis Note [id number] Mark Manzo MD [facility] [address] [phone] 08/31/2024 16:28:21 08/31/2024 18:19:26 Acute exacerbation of chronic congestive heart failure 137925809 I50.9 [id number] Patient with known CHF, unspecifie d type, [...] which to seek higher level of care. [id number] Ginger Montelongo MD [facility] [address] [phone] 09/01/2024 11:22:12 09/01/2024 14:12:17 Peripheral edema [id number] R60.0 26630 Creatinine has bumped slightly from 1 yesterday [...] Lopez Member ID Guarantor Name 09/01/2024 1 [facility] - DOS ON OR AFTER 2022 - DUAL ELIGIBLE - NURSING HOME OPTIONS AND ONE CARE (MEDICARE REPLACEMENT/AD VANTAGE - HMO) [facility] [id number] [facility] Notes Date Note Type Note Provider Name and Address Organization Details Recorded Time 08/31/2024 text/html ROS as noted in the [facility] Nurse Triage Notes (Jo Israel - [...] signs of when to seek emergency care. Food And Beverage Cashier Organization Information for Kristian Sifuentes Business Legal Name: [employer]. Address: [address] [place] [address], Route Sales Delivery Driver: Andi PULLIAMIA No.: [id number] Food And Beverage Cashier POC Test Results from Kristian Sifuentes - ALS iSTAT Chem8+ (16:41:15) Na: 143mEq/L K: 3.9mEq/L Cl: 105mEq/L iCa: 1.29mmol/L TCO2: 27mmol/L Glu: 137mg/dL BUN: 16mg/dL Crea: 1.0mg/dL Hct: 40% Hb: 13.6g/dL Ammol/L Cartridge Number: [id number] Attachments uploaded as part of this test result can be found under Documents section. ................... ................... ................... ................... ................... ................... ................... ........ Food And Beverage Cashier Note From Kristian Sifuentes: Dispatched to above [...] since yesterday, states he has spoke with Strategic Development Manager about this he believes it is caused by his prescribed Sotalol and is being scheduled for an ablation. [facility] contacted, spoke with Dr. Manzo, advised of patient complaints and exam findings. [facility] orders Chem8 be checked. Lab draw preformed, Chem8 checked, results uploaded. [facility] ordered 40mg Lasix and 20MeQs Potassium PO. 5 rights verified. Lasix and Potassium administered PO. Patient advised of home care, red flags and need for follow up. Patient has no additional questions or concerns at this time. SC8 clear. EOR. ................... ................... ................... ................... ................... ................... ................... ........ [facility] Consulted: Ivan Manzo ................... ................... ................... ................... ................... ................... ................... ........ Disposition: Fulfilled Mark Manzo MD [address] [facility],[address], [place], [phone], [employer] 08/31/2024 17:25:27 09/01/2024 text/html ROS as noted in the [facility] Nurse Triage Notes (Maura Flowers - [...] like a revisit for labs and volume [id number] mEq/LK3.9 mEq/JZy698 mEq/LiCa1.29 mmol/OILZ927 mmol/YKjc824 mg/dLBUN16 mg/dLCrea1.0 mg/dLRequest for visit on 09/01. Patient with CHF, lower extremity edema. Normal Merchant Patroller. Visit request for diuretic management. Takes 40mg Lasix PO daily. Given additional dose on 08/31 visit of 40mg PO. Assess weight, edema and renal function and consider adding additional lasix and repleting K as needed. Food And Beverage Cashier Organization Information for Will Sellersfrancesca Legal Name: [facility] ss: [address] [place], [place]ESHA Anders [address], Medical Director: Ramón Luna [facility] No.: [id number] Food And Beverage Cashier POC Test Results from Will Sellers [facility] (11:17:07)pH: 7.383pH unitspCO2: 45.6eyXjhU5: 22.3mmHgNa: 142mmol/LK: 4.1mmol/LiCa: 1.16mmol/LCl: 110mmol/LTCO2: 26.2mEq/LHct: 40%Hb: 13.7g/dLGlu: 117mg/dLLac: 0.41mmol/LCr: 1.28mg/dLBUN: 15mg/dLAmmol/LHCO3: 27.3mmol/LAttachmen ts uploaded as part of this test result can be found under Documents section. ................... ................... ................... ................... ................... ................... ................... ........ Food And Beverage Cashier Note From Will Sellers: Pt chief complaint [...] 4.1 while his creatinine is at 1.28. [facility] Ginger Montelongo consulted, Pt is informed of findings. Pt is told to Continue use his regular course of furosemide 40 mg without the additional 40. Pt is instructed to contact his PCP at earliest convenience for follow up. Pt educated on red flag S&S and told to contact emergency services if any present. [facility] Lab Orders: BMP, serum or plasma: Performed ................... ................... ................... ................... ................... ................... ................... ........ [facility] Consulted: Ginger Montelongo ................... ................... ................... ................... ................... ................... ................... ........ Disposition: Fulfilled SEGMD: As above. Patient reports his weight was 305 yesterday and he was 302 for us today with close. His baseline weight is 297-305 he states he is about to start on Zepbound for diabetes control and weight loss. Ginger Montelongo MD [address] [facility],[address], [place], [address], [employer] 09/01/2024 13:45:17
== END 2024-12-11 09:50 | disposition home or self-care (01) ==
LOC: HO.PMC 09:22
PROVIDERS: PCP Internal Medicine; Visit Provider Internal Medicine
DX: M17.0 Bilateral primary osteoarthritis of knee (principal)
CPT/HCPCS: 20610

== ENCOUNTER → 2024-12-11 09:21 | Outpatient (BNVA) | payer OTHER, SELFPAY | PROVIDERS: PCP Internal Medicine; Visit Provider Internal Medicine | DX: M17.12 Unilateral primary osteoarthritis, left knee (principal) | CPT/HCPCS: 20610; J2795; J3301 ==